=== PATIENT | male | born 1965 | race Caucasian/White ===

== ENCOUNTER 2018-03-21 09:09 | Outpatient (CLI) | payer OTHER, SELFPAY ==
[2018-03-21 10:33] LABS: COMMENT (LAB VIEW ONLY) 123.88 mg/dL; Microalb ug/mg Crea 6.9 ug/mg Cr
[2018-03-21 10:47] LABS: ALT 26 U/L (12-78); AST 13 U/L (15-37); Alkaline Phosphatase 96 U/L (46-116); Anion Gap 9.3 mmol/L (3-11); BUN 14 mg/dL (7-18); Bilirubin, Total 0.3 mg/dL (0.2-1.0); CO2 28.7 mmol/L (21.0-32.0); CREATININE 0.91 mg/dL (0.70-1.30); Calcium 9.3 mg/dL (8.5-10.1); Chloride 103 mmol/L (98-107); Cholesterol 179 mg/dL (50-200); Glucose 117 mg/dL (70-100); HDL Cholesterol 56 mg/dL (40-60); LDL CHOLESTEROL 89 mg/dL (<100); Potassium 4.2 mmol/L (3.5-5.1); Sodium 141 mmol/L (136-145); Total Protein 7.5 g/dL (6.4-8.2); Triglyceride 147 mg/dL (30-150)
[2018-03-21 11:11] LABS: Hemoglobin A1C 8.2 % (4.5-6.2)
== END 2018-03-21 09:29 ==
PROVIDERS: PCP Nurse Practitioner Family; Visit Provider Nurse Practitioner Family
DX: I10 Essential (primary) hypertension (principal); E78.5 Hyperlipidemia, unspecified; E11.65 Type 2 diabetes mellitus with hyperglycemia; Z79.4 Long term (current) use of insulin
CPT/HCPCS: 36415; 80053; 80061; 83721; 82043; 82570; 83036

== ENCOUNTER 2018-07-18 01:45 | Outpatient (CLI) | payer OTHER, SELFPAY ==
--- NOTE | 2018-07-18 08:00 | DIABASSESS_ITS ---
DESCRIPTION/ASSESSMENT: Malcolm Agrawal presents for diabetes self management on multiple insulin dosing daily. He is here specifically to learn about the continuous glucose monitor with anticipation that he will trial the Dexcom 4 Professional to see if it will work for him. INTERVENTION: Reviewed Freestyle Shilpa and Dexcom features and differences. He is shown the wearable part of the Dexcom 4. He does not feel it would be safe on his abdomen given his work. He wishes to discuss this again with his PCP and knows to be in touch if he has a change of heart. ACTION PLAN: Malcolm will discuss options with PCP and follow up as desired. Individual DSME/T __0__ units billed TIME IN: 0800 OUT: 08 No DM group education series being offered at this time.
== END 2018-07-18 02:05 ==
PROVIDERS: PCP Nurse Practitioner Family; Visit Provider Dietitian, Registered
DX: E11.9 Type 2 diabetes mellitus without complications (principal); Z79.4 Long term (current) use of insulin; Z71.3 Dietary counseling and surveillance

== ENCOUNTER 2019-07-31 00:58 | Outpatient (CLI) | payer OTHER, MEDICAID, SELFPAY ==
[2019-07-31 08:48] LABS: COMMENT (LAB VIEW ONLY) 128.08 mg/dL; Microalb ug/mg Crea 4.1 ug/mg Cr
[2019-07-31 08:49] LABS: ALT 39 U/L (16-63); AST 15 U/L (15-37); Albumin 4.2 g/dL (3.4-5.0); Alkaline Phosphatase 99 U/L (46-116); BUN 16 mg/dL (7-18); Bilirubin, Total 0.3 mg/dL (0.2-1.0); Calcium 8.8 mg/dL (8.5-10.1); Chloride 104 mmol/L (98-107); Cholesterol 226 mg/dL (<200); Glucose 215 mg/dL (74-106); HDL Cholesterol 36 mg/dL (40-60); Potassium 4.1 mmol/L (3.5-5.1); Sodium 141 mmol/L (136-145); Total Protein 7.2 g/dL (6.4-8.2); Triglyceride 485 mg/dL (<150)
[2019-07-31 09:03] LABS: LDL CHOLESTEROL 105 mg/dL (<100)
== END 2019-07-31 01:18 ==
PROVIDERS: PCP Nurse Practitioner Family; Visit Provider Nurse Practitioner Family
DX: E78.5 Hyperlipidemia, unspecified (principal); E11.9 Type 2 diabetes mellitus without complications; Z79.4 Long term (current) use of insulin
CPT/HCPCS: 36415; 80053; 80061; 83721; 82043; 82570; 83036

== ENCOUNTER 2020-10-08 02:42 | Outpatient (CLI) | payer MEDICAID, SELFPAY ==
[2020-10-08 09:15] LABS: HCT 44.1 % (40.0-50.0); MCHC 31.7 % (32.0-36.0); MCV 85.1 fL (80-95); MPV 11.1 fL (8.0-11.0); Platelet Count 240 10^3/uL (130-400); RBC 5.18 10^6/uL (4.36-5.78); RDW 14.4 % (11.8-14.1); RDW-SD 45.1 fL; WBC 8.35 10^3/uL (4.4-10.8)
[2020-10-08 10:05] LABS: Microalb ug/mg Crea 8.4 ug/mg Cr
[2020-10-08 10:06] LABS: ALT 22 U/L (16-63); AST 13 U/L (15-37); Albumin 4.3 g/dL (3.4-5.0); Alkaline Phosphatase 88 U/L (46-116); Anion Gap 9.4 mmol/L (3-11); BUN 15 mg/dL (7-18); Bilirubin, Total 0.4 mg/dL (0.2-1.0); CO2 27.6 mmol/L (21.0-32.0); CREATININE 0.9 mg/dL (0.70-1.30); Calcium 9.5 mg/dL (8.5-10.1); Calculated LDL 105 mg/dL (<100); Chloride 104 mmol/L (98-107); Cholesterol 178 mg/dL (<200); Glucose 115 mg/dL (74-106); HDL Cholesterol 57 mg/dL (40-60); Potassium 3.9 mmol/L (3.5-5.1); Sodium 141 mmol/L (136-145); Total Protein 7.8 g/dL (6.4-8.2); Triglyceride 83 mg/dL (<150)
== END 2020-10-08 02:43 | disposition home or self-care (01) ==
LOC: LBO 02:42
PROVIDERS: PCP Nurse Practitioner Family; Visit Provider Nurse Practitioner Family
DX: I10 Essential (primary) hypertension (principal); E78.5 Hyperlipidemia, unspecified; E11.9 Type 2 diabetes mellitus without complications; Z79.4 Long term (current) use of insulin; Z51.81 Encounter for therapeutic drug level monitoring
CPT/HCPCS: 36415; 80053; 80061; 85027; 82043; 82570

== ENCOUNTER 2022-02-24 03:05 | Outpatient (CLI) | payer MEDICAID, SELFPAY ==
[2022-02-24 07:42] LABS: Abs Immature Grans 0.02 10^3/uL (0.0-0.06); Absolute Basophil Count 0.04 10^3/uL (0.0-0.2); Absolute Lymphocyte Count 1.78 10^3/uL (1.2-3.4); Absolute Monocyte Count 0.91 10^3/uL (0.1-0.8); Basophils % 0.7; Eosinophils % 3.4; HCT 45.2 % (40.0-50.0); HGB 14.7 g/dL (13.5-17.5); Immature Grans % 0.3; Lymphocytes % 29.9; MCH 27.6 pg (27.0-33.0); MCHC 32.5 % (32.0-36.0); MCV 85 fL (80-95); MPV 11.1 fL (8.0-11.0); Monocytes % 15.3; Neutrophils % 50.4; Platelet Count 220 10^3/uL (130-400); RBC 5.32 10^6/uL (4.36-5.78); RDW 14.1 % (11.8-14.1); RDW-SD 43.8 fL; WBC 5.95 10^3/uL (4.4-10.8)
[2022-02-24 08:33] LABS: Hemoglobin A1C 7.4 % (<5.7)
[2022-02-24 08:34] LABS: COMMENT (LAB VIEW ONLY) 236.07 mg/dL; Microalb ug/mg Crea 9.8 ug/mg Cr
[2022-02-24 08:35] LABS: ALT 32 U/L (16-63); AST 22 U/L (15-37); Albumin 4.5 g/dL (3.4-5.0); Alkaline Phosphatase 103 U/L (46-116); Anion Gap 8.2 mmol/L (3-11); BUN 15 mg/dL (7-18); Bilirubin, Total 0.4 mg/dL (0.2-1.0); CO2 29.8 mmol/L (21.0-32.0); Calcium 9.3 mg/dL (8.5-10.1); Calculated LDL 127 mg/dL (<100); Chloride 103 mmol/L (98-107); Cholesterol 209 mg/dL (<200); Estimated GFR 89.44 (mL/min/1.73m2); Glucose 119 mg/dL (74-106); HDL Cholesterol 59 mg/dL (40-60); Potassium 3.6 mmol/L (3.5-5.1); Sodium 141 mmol/L (136-145); Total Protein 8.1 g/dL (6.4-8.2); Triglyceride 118 mg/dL (<150)
== END 2022-02-24 03:06 | disposition home or self-care (01) ==
PROVIDERS: PCP Nurse Practitioner Family; Visit Provider Nurse Practitioner Family
DX: Z51.81 Encounter for therapeutic drug level monitoring (principal); E11.65 Type 2 diabetes mellitus with hyperglycemia; I10 Essential (primary) hypertension; Z79.4 Long term (current) use of insulin; E78.5 Hyperlipidemia, unspecified; E11.9 Type 2 diabetes mellitus without complications
CPT/HCPCS: 36415; 80053; 80061; 82043; 82570; 83036; 85025

== ENCOUNTER 2022-03-17 02:03 | Outpatient (CLI) | payer MEDICAID, SELFPAY ==
--- NOTE | 2022-03-17 08:30 | DI.CTLCSR_ITS ---
Exam(s) CT CHEST LUNG CANCER SCREEN EXAM: CT CHEST LUNG CANCER SCREEN CLINICAL HISTORY: Screening for lung cancer,CURRENT SMOKER, F17.210 TECHNIQUE: Imaging Protocol: Axial computed tomography images with coronal and sagittal reformatted images were created and reviewed. Low dose screening protocol. COMPARISON: CR CHEST 2 VIEWS PA,LAT from 03/19/2012 FINDINGS: Tracheobronchial tree: No bronchiectasis or mucus plugging.. Thyroid: Marked enlargement of the righ t lobe. Mediastinum and Letty: No dominant adenopathy or fluid collection. Pulmonary parenchyma: No consolidation or dominant measurable mass. No visible emphysematous changes. No significant interstitial changes peer Lung Nodules: None. Pleura: No effusion. No pneumothorax. Heart: The heart is not dilated. Mild coronary artery calcifications are seen. Aorta: Thoracic aorta non-dilated. Upper abdomen: Unremarkable. Bones: Unremarkable for age. Soft Tissues: Mild bilateral gynecomastia IMPRESSION: No suspicious pulmonary nodules. Enlargement of the right lobe of the thyroid. Further evaluation with ultrasound could be considered . Lung RADS Cat 1 - Negative: No nodules and definitely benign nodules Lung-RADS 1.0 CATEGORIES: Category 0 - Prior chest CT exam(s) being located for comparison. Category 1 - Annual screening in 12 months. No nodules or definitely benign nodules. Category 2 - Annual screening in 12 months. Benign appearance. Nodules with low likelihood of becomin g active cancer. Category 3 - 6-month follow-up. Probably benign. Short-term follow-up suggested. Nodules with low lik elihood of becoming active cancer. Category 4A - 3-month follow-up and CT/PET if >8 mm in size. Suspicious finding. Findings which requi re additional testing. Category 4B - Findings which require additional testing and tissue sampling. Category 4X - Category 3 or 4 nodules with additional features or imaging findings that increases the suspicion of malignancy. Modifier S- Potentially clinically significant findings (non lung cancer) RADIATION DOSE DELIVERED: Total DLP DATA REPOSITORY: All CT scans at this facility are submitted to the National Radiology Data Registry (NRDR) Dose Index Registry (DIR) with the [employer] (ACR). RADIATION OPTIMIZATION: All CT scans at this facility use at least one of these dose optimization te chniques: automated exposure control; mA and/or kV adjustment per patient size (includes targeted exa ms where dose is matched to clinical indication); or iterative reconstruction.
== END 2022-03-17 02:23 ==
PROVIDERS: PCP Nurse Practitioner Family; Visit Provider Nurse Practitioner Family
DX: Z12.2 Encounter for screening for malignant neoplasm of respiratory organs (principal); F17.210 Nicotine dependence, cigarettes, uncomplicated; E07.89 Other specified disorders of thyroid
CPT/HCPCS: 71271

== ENCOUNTER 2022-04-26 01:52 | Outpatient (CLI) | payer MEDICAID, SELFPAY ==
--- NOTE | 2022-04-26 06:45 | DI.US_ITS ---
Exam(s) US THYROID EXAM: US THYROID CLINICAL HISTORY: Eval incidental R thyroid enlargement on CT,THYROID NODULE, E04.1. TECHNIQUE: Ultrasound thyroid performed using standard protocol. COMPARISON: CT CT CHEST LUNG CANCER SCREEN from 03/17/2022 FINDINGS: ISTHMUS: 8 mm RIGHT LOBE: Size: 7.1 x 2.7 x 2.6 cm Echogenicity: Normal. Vascularity: Normal. Nodules: There is a 3.7 x 3.3 x 3.7 cm solid isoechoic nodule in the inferior pole of the right lobe. It has smooth margins and punctate echogenic foci. It is consistent with a TI rads level 4 nodule. Due to its size, FNA is recommended. There is also a 1 x 0.7 x 1 cm solid hypoechoic nodule in the right lobe. There do appear to be a few punctate echogenic foci. It has smooth margins. It is con sistent with a TI rads level 5 nodule. Due to its size, FNA is recommended. LEFT LOBE: Size: 6 x 2.2 x 1.7 cm Echogenicity: Normal. Vascularity: Normal. Nodules: There is a 1.7 x 1.2 x 1.4 cm solid isoechoic nodule. It has ill-defined margins. No echog enic foci are seen. It is consistent with a TI rads level 3 nodule. Due to its size, follow-up is r ecommended. There is a 0.9 x 0.3 x 0.9 cm mixed cystic and solid nodule in the left lobe. It is con sistent with a TI rads level 2 nodule. No follow-up is recommended. OTHER FINDINGS: None. IMPRESSION: 1. Enlarged thyroid gland. 2. Multi nodule thyroid gland. Please see the above discussion for complete details. FNA is recomme nded on the 2 right thyroid nodules as described above. DATA REPOSITORY:
== END 2022-04-26 02:12 ==
LOC: DI 01:53
PROVIDERS: PCP Nurse Practitioner Family; Visit Provider Nurse Practitioner Family
DX: E04.2 Nontoxic multinodular goiter (principal); E07.89 Other specified disorders of thyroid
CPT/HCPCS: 76536

== ENCOUNTER 2022-04-29 16:14 | Outpatient (CLI) | payer MEDICAID, SELFPAY ==
[2022-04-29 17:07] LABS: TSH (W/Ref FT4) 0.12 uIU/mL (0.36-3.74)
[2022-04-29 17:30] LABS: FREE T4 0.94 ng/dL (0.76-1.46)
== END 2022-04-29 16:15 | disposition home or self-care (01) ==
LOC: LBO 16:14
PROVIDERS: PCP Nurse Practitioner Family; Visit Provider Nurse Practitioner Family
DX: E04.2 Nontoxic multinodular goiter (principal)
CPT/HCPCS: 36415; 84439; 84443

== ENCOUNTER 2022-07-27 00:56 | Outpatient (CLI) | payer MEDICAID, SELFPAY ==
--- NOTE | 2022-07-27 07:45 | DI.US_ITS ---
Exam(s) US NEEDLE LOCAL OTHER WO RAD EXAM: US NEEDLE LOCAL OTHER WO RAD CLINICAL HISTORY: Right TR 4/TR 5 lesions,ULTRASOUND GUIDED BX,E04.2. COMPARISON: US US THYROID from 04/26/2022 TECHNIQUE: Ultrasound guidance was performed for ultrasound-guided FNA of right thyroid lobe nodule. See procedure report for details. FINDINGS: IMPRESSION: Ultrasound guidance. DATA REPOSITORY:
--- NOTE | 2022-07-27 12:10 | PAPNONF_PTH ---
PATIENT: Jatinder Agrawal V LOC: [facility] U#:[id number] AGE/SX: 56/M ROOM: RE07/27/[address]: Phoenix Whittaker MD : [id number] BED: DIS: 07/27/2022 SPEC #: [id number] RECD: 07/27/22 12:47 STATUS: ALANNAH REQ #: [id number] GENE: 07/27/22 12:[address]: Phoenix Whittaker DEPT: [facility] Cytology RECD BY: Minda Patricia ENTERED: 07/27/22 12:48 SP TYPE: PAOLO ACOSTA DR: Saadia Tracy, LAYNE Tissues: 1 - BODY FLUID CYTO-FINE NEEDLE ASPIRATE[facility] 2 - BODY FLUID CYTO-FINE NEEDLE ASPIRATE[facility] Procedures: BODY FLUID CYTO-FINE NEEDLE ASPIRATE[facility] Comments: [id number] (PATH FNA CONSULT) (REFRIGERATED)
--- NOTE | 2022-07-27 13:04 | OPPNE_ITS ---
Date of service: 07/27/22 Time of Service: 13:04 Procedure Note Date of procedure: 07/27/22 Procedure: Ultrasound-guided FNA, right thyroid nodule x2 Surgeon/Proceduralist/Physician: Phoenix Whittaker Procedure Indications: Patient with 2 right-sided thyroid nodules meeting criteria for biopsy. Procedure Description: After obtaining written consent from the patient, he was positioned in a supine position and prepped and draped in appropriate fashion. The thyroid nodules in the right were identified and 1% lidocaine with 1/100,000 epinephrine injected i n the skin and subcutaneous tissues overlying each of the nodules. A 25-gauge needle was passed into the thyroid nodules repeatedly and then pathology assessed for cellular adequacy. After ensuring it cellular adequacy for each of the nodules, Afirma testing was drawn in case Afirma testing was indicated. The patient tolerated this procedure well. There was no bleeding. Sterile dressings were applied. The patient was then able to stand up and ambulate. His vital signs remained stable. He will remove the bandages tonight, call with any signs of infection, and will call if he does not hear from me with regard to pathology results within 2 weeks. He had no further questions. He is comfortable with the plan.
== END 2022-07-27 01:16 ==
LOC: DI 00:56
PROVIDERS: PCP Nurse Practitioner Family; Visit Provider Otolaryngology
DX: E04.2 Nontoxic multinodular goiter (principal)
CPT/HCPCS: 76942; 88104

== ENCOUNTER → 2022-10-14 01:14 | Outpatient (CLI) | payer MEDICAID, SELFPAY ==
--- NOTE | 2022-10-14 08:15 | DI.RAD_ITS ---
Exam(s) XR FINGER LT RING EXAM: XR FINGER LT RING EXAM DATE/TIME: CLINICAL HISTORY: persist pain/swell s/p disloco 2mo ago (pt reset). TECHNIQUE: 2D digital imaging was performed of the left finger. Views were obtained. PA/AP, obliq ue, and lateral views were obtained. COMPARISON: None. FINDINGS: BONES: No acute fracture is present. No bony destructive lesion is seen. JOINTS: No dislocation is present. SOFT TISSUE: Normal. IMPRESSION: No evidence of acute fracture or dislocation. DATA REPOSITORY: RADIATION DOSE DELIVERED:
== END ==
PROVIDERS: PCP Nurse Practitioner Family; Visit Provider Nurse Practitioner Family
DX: M25.541 Pain in joints of right hand (principal)
CPT/HCPCS: 73140

== ENCOUNTER 2023-03-03 04:43 | Outpatient (CLI) | payer MEDICAID, SELFPAY ==
[2023-03-03 08:50] LABS: Anion Gap 4.9 mmol/L (3-11); BUN 14 mg/dL (7-18); CO2 29.1 mmol/L (21.0-32.0); CREATININE 0.9 mg/dL (0.70-1.30); Calcium 9.3 mg/dL (8.5-10.1); Calculated LDL 84 mg/dL (<100); Chloride 108 mmol/L (98-107); Cholesterol 179 mg/dL (<200); Estimated GFR 100.86 (mL/min/1.73m2); Glucose 143 mg/dL (74-106); HDL Cholesterol 53 mg/dL (40-60); Potassium 3.8 mmol/L (3.5-5.1); Sodium 142 mmol/L (136-145); TSH (W/Ref FT4) 0.39 uIU/mL (0.36-3.74); Triglyceride 212 mg/dL (<150)
[2023-03-03 08:58] LABS: Lipase 56 U/L (16-77)
== END 2023-03-03 04:44 | disposition home or self-care (01) ==
LOC: LBO 04:43
PROVIDERS: PCP Nurse Practitioner Adult Health; Referring Provider Nurse Practitioner Adult Health; Visit Provider Nurse Practitioner Adult Health
DX: E04.2 Nontoxic multinodular goiter (principal); E11.9 Type 2 diabetes mellitus without complications; E78.5 Hyperlipidemia, unspecified; I10 Essential (primary) hypertension; Z13.6 Encounter for screening for cardiovascular disorders; Z79.4 Long term (current) use of insulin
CPT/HCPCS: 36415; 80048; 80061; 83690; 84443

== ENCOUNTER → 2023-07-07 04:02 | Outpatient (CLI) | payer MEDICAID, SELFPAY ==
--- NOTE | 2023-07-07 07:00 | DI.US_ITS ---
Exam(s) US THYROID EXAM: US THYROID CLINICAL HISTORY: Assess for change,MULTIPLE THYROID NODULES,E04.2. TECHNIQUE: Ultrasound thyroid performed using standard protocol. COMPARISON: US US THYROID from 04/26/2022 US US NEEDLE LOCAL OTHER WO RAD from 07/27/2022 Prior thyroid ultrasound of 04/26/2022. FINDINGS: This patient underwent FNA of 2 right thyroid lobe nodules on 07/27/2022, parent negative for maligna ncy. RIGHT THYROID LOBE: Measures 3.3 cm AP x 3.0 cm wide x 6.7 cm craniocaudal There again 2 solid nodules in the right lobe, both of which underwent prior ultrasound FNA. The larger right lobe nodule is located more inferiorly. Details as follows: Size: Measures 3.7 x 3.3 x 3.7 cm. Composition: Solid-2 points Echogenicity: Isoechoic to surrounding parenchyma-1 point Shape: Wider than taller-0 points Margin: Smooth- 0 points Echogenic Foci: Contains punctate echogenic foci-3 points Total Points for this nodule: 6 ACR Ti-Rads Category: TR4 This TR 4 level nodule qualifies for ultrasound-guided FNA as it measures greater than 1.5 cm. This biopsy apparently underwent prior FNA (benign follicular nodule). This nodule has not significantly increased in size from the prior ultrasound of April 2022. Nodule #2 this is located more inferiorly in the right lobe Size: Measures 1.0 x 0.7 x 1.0 cm. Also not increased in size. Composition: Solid-2 points Echogenicity: Hypoechoic-2 points Shape: Wider than taller- 0 points Margin: Smooth-0 points Echogenic Foci: Contains punctate echogenic foci-3 points Total points for this nodule: 7 ACR Ti-Rads Category: TR5 This TR 5 level nodule is on the cusp 4 qualifying for ultrasound-guided FNA as it measures 1 cm size . However, is apparently already undergone ultrasound-guided FNA on 07/27/2022 and was negative for malignancy. There are no new right lobe nodules. ISTHMUS: Normal thickness. There are no nodules in the isthmus. LEFT THYROID LOBE: Measures 2.6 cm AP x 2.5 wide x 5.4 cm craniocaudal Left lobe also contains 2 nodules. The larger of the 2 nodules measures 1.8 x 1.4 x 1.6 cm. Its characteristics are as follows: Composition: Solid-2 points- points Echogenicity: Isoechoic-1 points Shape: Not taller than wider-0 points Margin: Smooth-0 points Echogenic Foci: None-0 points Total points for this nodule: 3 ACR Ti-Rads Category: 3 This TR 3 level nodule does not require ultrasound FNA as it measures less than 2.5 cm. Nodule #2 2nd nodule is located superomedial to the 1st nodule. Size: Measures 0.8 x 0.3 x 0.9 cm Composition: Mixed asbrf-ovkgwu-5 point Echogenicity: Hypoechoic-2 points Shape: Wider than taller in the transverse plane-0 points Margin: Smooth-0 points Echogenic Foci: Contains a macrocalcification-1 point Total Points for this nodule: 4 ACR Ti-Rads Category: 4 This TR 4 level nodule does not require ultrasound-guided FNA as it measures less than 1.5 cm. LYMPH NODES: There benign-appearing lymph nodes in both sides the neck.. IMPRESSION: 1. The 2 nodules in the right thyroid lobe appear stable prior ultrasound of 04/26/2022 and have both undergone ultrasound-guided FNA on 07/27/2022, apparently negative for malignancy. 2. The 2 nodules in left thyroid lobe appear relatively stable and do not grade high enough to requir e ultrasound-guided FNA at this time 3. Small benign-appearing lymph nodes noted in both sides of the neck. Recommend repeat ultrasound in 1 year, earlier if clinically indicated. DATA REPOSITORY:
== END ==
PROVIDERS: PCP Nurse Practitioner Adult Health; Visit Provider Otolaryngology
DX: E04.2 Nontoxic multinodular goiter (principal)
CPT/HCPCS: 76536

== ENCOUNTER 2023-09-10 14:28 | Emergency (ER) | payer MEDICAID, SELFPAY ==
[2023-09-10 14:32] VITALS: BP 135/94; PULSE 94; RESP 18; TEMP 37.2; O2SAT 98
--- NOTE | 2023-09-10 14:45 | DI.RAD_ITS ---
Exam(s) XR ANKLE LT COMPLETE EXAM: XR ANKLE LT COMPLETE CLINICAL HISTORY: Medial left ankle pain TECHNIQUE: 2D digital imaging was performed of the left ankle. Three images were obtained. AP, lat eral and oblique views were obtained. COMPARISON: CR LEFT ANKLE COMPLETE from 08/21/2007 FINDINGS: BONES: No acute fracture is present. No bony destructive lesion is seen. JOINTS:The ankle mortise is normally aligned. SOFT TISSUE: There are well corticated osseous densities adjacent to the medial malleolus which are c hronic. Vascular calcifications are present. IMPRESSION: No acute fracture or dislocation. DATA REPOSITORY: RADIATION DOSE DELIVERED:
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
[2023-09-10] MEDS: Acetaminophen 500 MG TAB 1000 MG PO (15:01)
--- NOTE | 2023-09-10 16:23 | DI.VRAD_ITS ---
PROCEDURE INFORMATION: Exam: XR Left Ankle Exam date and time: 09/10/2023 3:53 PM Age: 58 years old Clinical indication: Other: Medial lt ankle pain TECHNIQUE: Imaging protocol: Radiologic exam of the left ankle. Views: 3 or more views. COMPARISON: No relevant prior studies available. FINDINGS: Bones/joints: There is hypertrophic spurring of the tibiotalar articulation. There may be some mild soft tissue swelling. Soft tissues: See Bones/joints finding. Other findings: There may be a small loose body at the level of the lateral malleolus. IMPRESSION: Degenerative changes. Possible medial soft tissue swelling. Dictated and Authenticated by: Roxann Clemens MD. Ordering:JESSICA Benedict MD
== END 2023-09-10 17:01 | disposition home or self-care (01) ==
PROVIDERS: Emergency Provider Emergency Medicine; PCP Nurse Practitioner Adult Health
DX: M25.572 Pain in left ankle and joints of left foot (principal); E11.9 Type 2 diabetes mellitus without complications; I10 Essential (primary) hypertension; F17.210 Nicotine dependence, cigarettes, uncomplicated; Z79.4 Long term (current) use of insulin; Z79.84 Long term (current) use of oral hypoglycemic drugs; Z79.85 Long-term (current) use of injectable non-insulin antidiabetic drugs
CPT/HCPCS: 99283; 73610

== ENCOUNTER 2024-01-02 06:51 | Day surgery (SDC) | payer MEDICAID, SELFPAY ==
[2024-01-02] VITALS (12 sets, daily range): BP systolic 119–163; BP diastolic 60–114; PULSE 72–86; RESP 13–20; TEMP 36.6–37.1; O2SAT 95–100; BMI 26.9
--- NOTE | 2024-01-02 07:06 | W.ED.GENAD ---
Discharge Plan Disposition Patient Disposition: Admit to [facility] Discharge Details Clinical Impression: Lesion of lumbar spine, Ureterolithiasis, Hydronephrosis of left kidney Attending Provider: Tao Sesay Primary Care Provider: Gloria Valdes ED Provider: Jak Pond Discharge Data Discharge Date/Time-TO BE ENTERED AT DEPARTURE: 01/02/24 09:53 HPI General Date/Time Provider Initiated Documentation: 01/02/24 07:05. HPI Narrative: MDM This is an overall well-appearing normothermic and not tachycardic 58-year-old male with left flank pain left hydronephrosis suspicious for ureterolithiasis for which patient will undergo CT abdomen pelvis without IV contrast. No pain or proportion to suggest necrotizing soft tissue infection. No pulsatile mass no history of AAA to suggest ruptured AAA. No significant testicular tenderness nor horizontal lie so my suspicion for testicular torsion is low and I do not feel the patient requires a testicular ultrasound. No diarrhea nor specific left lower quadrant pain nor fevers to suggest diverticulitis. No right lower quadrant pain nor rebound to suggest appendicitis. No rash to abdomen to suggest zoster. No shortness of breath to suggest PE. No cough to suggest pneumonia. Not a vasculopath so my suspicion for splenic arterial aneurysm is low. No bloody stools so my suspicion for mesenteric ischemia is low. No chest pain to suggest ACS so I did not obtain ECG. Will obtain urinalysis to assess for UTI and reassess following CT scan. 8:51 AM Base metabolic panel no NIKKI. Mild anion gap mild hyperglycemia. Normal bicarbonate?/not consistent with DKA. CBC with mild leukocytosis mild anemia. No thrombocytopenia. Urinalysis nitrite negative not consistent with UTI. 9:12 AM I met with the patient and explained his significant left-sided ureteral lithiasis. I spoke with Dr. Sesay and he will place patient on the OR schedule for today for stent as patient has been n.p.o. at midnight. I also explained that the patient has a vertebral vertebral body lesion which appears benign per radiology. I advised that he follow-up with his primary care provider concerning this incidental finding. He feels markedly more comfortable following ketorolac. Chronic conditions affecting the care of the patient: Diabetes History obtained from an outside historian: N/A External record review: N/A Medications: Ketorolac Social determinants of health affecting disposition: N/A Management discussed with: Dr. Sesay Treatment/interventions considered: N/A Response to therapies provided: Improved symptoms in the ED HPI This is a 58-year-old diabetic around the emergency department via private vehicle in the setting of left flank back and testicular pain. Patient reports that at approximately 9:30 PM last night he began to have testicular pain which progressed and radiated up into his left flank and left lower quadrant. He had been nauseous and vomited once yesterday. No prior history of similar symptoms. No history of nephrolithiasis. No dysuria frequency and no prior history of UTIs. No past surgical history to abdomen. No chest pain shortness of breath cough or fevers. Patient denies diarrhea and any recent falls. Patient was slightly more active over the weekend as he was hunting. Exam General: Well-appearing in no acute distress speaking in complete sentences. Head: Normocephalic, atraumatic. Eye: Extraocular eye movements intact. No conjunctival injection. No scleral icterus. Ear, nose, mouth, throat: Grossly normal inspection. Normal voice, handling secretions normally. Neck: Trachea midline. Cardiovascular: Well-perfused distal extremities. Respiratory: Nonlabored respiration. Clear lungs bilaterally. Gastrointestinal: Nondistended abdomen. Soft. Minimal left lower quadrant tenderness. No rebound. No guarding. No rash to abdomen. : Circumcised penis. No significant testicular tenderness. No horizontal lie. Intact cremasteric reflex bilaterally. Musculoskeletal: No edema. Moving all 4 extremities spontaneously. Skin: Normal for age and race, grossly normal temperature and turgor. No acute rash. Neurologic: Alert and appropriate, no apparent acute deficits. Psychiatric: Mood and manner are appropriate. Grooming and personal hygiene are appropriate. Related Data Home Medications ?Medication ?Instructions ?Recorded ?Confirmed glucosamin 375 mg-chond 300 1 ea PO BID 04/19/12 01/03/24 mg-collagen 50 mg-hyaluronic acid 2 mg cap multivitamin (Daily Vitamin tablet) 1 ea PO DAILY ##100 04/19/12 01/03/24 aspirin 81 mg chewable tablet 81 mg PO DAILY #100 tabs 11/19/16 01/03/24 omega-3 fatty acids-fish oil 340 1 ea PO DAILY 02/18/17 01/03/24 mg-1,000 mg capsule (Fish Oil) blood sugar diagnostic (Blood #400 ea 09/10/19 01/02/24 Glucose Test strips) pen needle, diabetic 31 gauge x ##400 09/07/21 01/02/24 516 (Pen Needle) fenofibrate nanocrystallized 145 See Rx Instructions .Route 02/10/23 01/03/24 mg tablet .COMPLEX #90 tabs lisinopril 10 mg tablet 10 mg PO DAILY #90 tab-caps 02/10/23 01/03/24 insulin glargine 100 unit/mL (3 34 unit (0.34 mL) subcut HS Dx: 06/23/23 01/03/24 mL) subcutaneous pen (Lantus E11.9 to maintain HbA1c less than Solostar U-100 Insulin) 7%. #31 mL flash glucose sensor (FreeStyle #2 kits 08/22/23 01/02/24 Shilpa 14 Day Sensor kit) omeprazole 20 mg capsule,delayed 20 mg PO DAILY #90 caps 08/29/23 01/03/24 release semaglutide 1 mg/dose (4 mg/3 mL) 1 mg (0.75 mL) subcut QWEEK #9 mL 08/29/23 01/03/24 subcutaneous pen injector (Ozempic) sildenafil 100 mg tablet See Rx Instructions .Route 09/28/23 01/03/24 .COMPLEX #20 tabs metformin 1,000 mg tablet See Rx Instructions .Route 11/09/23 01/03/24 .COMPLEX #180 tabs atorvastatin 80 mg tablet See Rx Instructions .Route 12/07/23 01/03/24 .COMPLEX #90 tabs tramadol 50 mg tablet 50 mg PO Q6H PRN #20 tabs 01/02/24 01/03/24 Previous Rx's ?Medication ?Instructions ?Recorded aspirin 81 mg chewable tablet 81 mg PO DAILY #100 tabs 11/19/16 blood sugar diagnostic (Blood #400 ea 09/10/19 Glucose Test strips) pen needle, diabetic 31 gauge x ##400 09/07/2116 (Pen Needle) fenofibrate nanocrystallized 145 See Rx Instructions .Route 02/10/23 mg tablet .COMPLEX #90 tabs lisinopril 10 mg tablet 10 mg PO DAILY #90 tab-caps 02/10/23 insulin glargine 100 unit/mL (3 34 unit (0.34 mL) subcut HS Dx: 05/09/24 mL) subcutaneous pen (Lantus E11.9 to maintain HbA1c less than Solostar U-100 Insulin) 7%. #31 mL flash glucose sensor (FreeStyle #2 kits 08/22/23 Shilpa 14 Day Sensor kit) omeprazole 20 mg capsule,delayed 20 mg PO DAILY #90 caps 08/29/23 release semaglutide 1 mg/dose (4 mg/3 mL) 1 mg (0.75 mL) subcut QWEEK #9 mL 08/29/23 subcutaneous pen injector (Ozempic) sildenafil 100 mg tablet See Rx Instructions .Route 09/28/23 .COMPLEX #20 tabs metformin 1,000 mg tablet See Rx Instructions .Route 11/09/23 .COMPLEX #180 tabs atorvastatin 80 mg tablet See Rx Instructions .Route 12/07/23 .COMPLEX #90 tabs tramadol 50 mg tablet 50 mg PO Q6H PRN #20 tabs 01/02/24 Allergies Allergy/AdvReac Type Severity Reaction Status Date / Time No Known Allergies Allergy Verified 01/02/24 07:02 General Stated Complaint: Male Reproductive Problem MRAIETTA: 2 Course Vital Signs Vital signs: Vital Signs Temperature 36.6 C 01/02/24 06:58 Pulse 85 01/02/24 06:58 Respiratory Rate 18 01/02/24 06:58 Blood Pressure 157/114 H 01/02/24 06:58 Pulse Oximetry 100 01/02/24 06:58 Temperature 36.6 C 01/02/24 06:58 Temperature Source Temporal Artery Scan 01/02/24 06:58 Pulse 85 01/02/24 06:58 Respiratory Rate 18 01/02/24 06:58 Respiratory Effort Normal, Non-Labored 01/02/24 07:03 Blood Pressure 157/114 H 01/02/24 06:58 Blood Pressure Position Sitting 01/02/24 06:58 Pulse Oximetry 100 01/02/24 06:58 Oxygen Delivery Method Room Air 01/02/24 06:58 Oxygen Flow Rate 0 01/02/24 06:58 Pain Level 6 01/02/24 06:58 Medical Decision Making Quality:SDOH Health Related Social Needs: No Data to Display PFSH All Active Problems (Updated 01/02/24 @ 08:55 by Jak Pond MD) Hydronephrosis of left kidney (Acute) Ureterolithiasis (Acute) Lesion of lumbar spine (Acute) Non-pressure chronic ulcer of left ankle with fat layer exposed (Acute) Diabetic foot ulcer (Acute) Family history of colon cancer in mother (Chronic) Multiple thyroid nodules (Acute) ENT Erectile dysfunction (Acute) History of colon polyps (Acute) Type 2 diabetes mellitus, with long-term current use of insulin (Chronic ~1998) HbA1c goal </= 7-7.5%; dx'ed 24yo Sleep apnea (Chronic 09/01/12) intolerant CPAP; has lost weight since dx Other and unspecified hyperlipidemia (Chronic 04/19/12) Baseline 04/2005: TG 1175 ; PCEq risk 19% LDL baseline 161; high intensity statin & fibrate therapy Gastroesophageal reflux disease (Chronic 04/19/12) Essential hypertension (Chronic 02/21/13) Chronic rhinitis (Chronic 09/01/12) 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 (Chronic) Medical History Central perforation of tympanic membrane, right ear Positive self-administered antigen test for COVID-19 (~12/2021) Diverticulosis Fracture of pelvis (03/30/13) Benign neoplasm of colon, unspecified (02/24/11) tubular adenoma Surgical History H/O colonoscopy 08/21/20 with polypectomy Repair, Tendon or Muscle L ankle Family History (Updated 08/29/23 @ 08:58 by Gloria Valdes NP) Mother Colon cancer Father Essential hypertension Hyperlipidemia Brother Hyperlipidemia Multiple sclerosis Social History Smoking/Tobacco Use Status: Current-Occasional Tobacco Type: cigarettes Smoking packs per day: 1 Smoking cigarettes per day: 20.0 Second Hand Exposure: Yes Smoking risk assessment performed?: Yes Alcohol Intake: current Alcohol Intake frequency: a few times a month Drug use: Daily Substance use type: marijuana 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[employer]) Pets and animals: Yes Pets and animals: dog(s) Sexually active: Yes Current gender identity: male What is your relationship status?: Panel score (0-1 are the most socially isolated patients): 1 What type of physical activity do you participate in: none and other Details: Stays active with work, hunting, fishing, etc Duration: < 15 minutes/day Frequency: does not exercise Seatbelt use: never Drive intox or ride w/intox miniature train driver: No Water heater temp set <120 deg: Yes Working smoke detector in home: Yes Fire extinguisher in home: Yes Carbon monox detector in home: Yes Do you feel safe at home: Yes Do you feel safe in your relationship?: Yes PAWSS Have you Been Recently Intoxicated or Drunk Within the Last 30 days?: No Have you Ever Experienced Previous Episodes of Alcohol Withdrawal?: No Have you ever Experienced Withdrawal Seizures?: No Have you ever Experienced Delirium Tremens(DT)s?: No Have you ever undergone Alcohol Rehabilitation Treatment (i.e, inpt ot outpatient treatment programs)?: No Have you ever Experienced Blackouts?: No Have you ever Combined Alcohol with other Downers within the last 90 days?: No Have you ever Combined Alcohol with any other Substance of Abuse during the last 90 days?: No Positive Blood Alcohol level on Presentation? [PCS.BAL]: No Evidence of Increased Autonomic Activity (i.e. HR>120, tremor, sweating, agitation, nausea)?: No Result: 0 POCUS Exam (ED) Limited Retroperitoneal(Renal)Exam DATE OF EXAM: 01/02/24 TIME OF EXAM: 07:26 PROVIDER THAT PERFORMED THE STUDY: Jak Pond IS THIS A REPEAT EXAM DURING THIS ENCOUNTER: No REASON FOR EXAM: Flank pain/left side VISUALIZED STRUCTURES: Left kidney, Right kidney and Other (Bladder) structures: Left-sided hydronephrosis. Bilateral kidneys and bladder visualized. PERTINENT FINDINGS/IMPRESSION: Hydronephrosis present left side DIFFERENTIAL DIAGNOSES: Mild left-sided hydronephrosis. No obvious UVJ stone. Exam complete
--- NOTE | 2024-01-02 07:15 | DI.CT_ITS ---
Exam(s) CT ABDOMEN PELVIS WO EXAM: CT ABDOMEN PELVIS WO CLINICAL HISTORY: Left flank pain hydronephrosis. TECHNIQUE: Imaging Protocol: Axial computed tomography images with coronal and sagittal reformatted images were created and reviewed CONTRAST MATERIAL: Intravenous: none Oral: None COMPARISON: No exams were available for comparison FINDINGS: VISUALIZED LUNG BASES: No nodules nor pleural effusions evident. ABDOMEN: There is no ascites. LIVER: There are no obvious focal hepatic lesions evident of this noninfused study. GALLBLADDER/BILIARY: No obvious gallbladder pathology. CBD is not dilated. PANCREAS: No evidence of pancreatic mass nor dilatation of the pancreatic duct. SPLEEN: Spleen is not enlarged. No obvious intrasplenic lesions. ADRENALS: There are no significant adrenal masses. KIDNEYS:There is an obstructing calculus in the upper left ureter at the the left ureteropelvic junct ion. This measures approximately 10 x 6 mm. Another smaller 3 2-3 mm calculus is seen in the lower pole calyx of the ipsilateral left kidney. There is mild hydronephrosis and perinephric streaking ar ound this left kidney. There are no calculi in the opposite-right kidney. Left ureter below this le pilar is not dilated. There are no radiopaque calculi in the nondistended urinary bladder. Nor the ur eterovesical junctions. No solid renal masses evident. No cysts.. ABDOMINAL AORTA: Abdominal aorta is not enlarged. LYMPH NODES: There is no retroperitoneal nor paraaortic adenopathy. ABDOMINAL WALL: No evidence of significant anterior abdominal wall nor inguinal hernia. GI: There is no evidence of bowel obstruction, free air, nor abscess. PELVIS: LYMPH NODES: There is no intrapelvic nor significant inguinal adenopathy. GI: No evidence of appendicitis.No evidence of sigmoid diverticulitis. URINARY BLADDER: No calculi nor obvious masses evident REPRODUCTIVE: Prostate gland is enlarged. Measures 6 cm wide. OSSEOUS: No fractures. There is a lucent nonexpansile bone lesion in the posterior aspect of L3 vert ebral body which measures 1.7 x 1.5 cm and there is discontinuity of the inferior endplate of L3 at t his level. Nevertheless, has benign appearance. IMPRESSION: 1. The main acute finding is an obstructing 10 x 6 mm left renal calculus at the left ureteropelvic j unction, as described above. Additional smaller 3 mm calculus is seen in the lower pole calyx of the same-left kidney. Right kidney unremarkable. No calculi in the bladder. Enlarged prostate noted. Urinary bladder is not distended. 2. There is a 17 x 15 by 20 mm nonexpansile bone lesion in the posterior inferior aspect of L3 verteb ral body. No other bone lesions identified. Probable benign appearance. First read by [facility]. RADIATION DOSE DELIVERED: 581.98mGy.cm Total DLP DATA REPOSITORY: All CT scans at this facility are submitted to the National Radiology Data Registry (NRDR) Dose Index Registry (DIR) with the [employer] (ACR). RADIATION OPTIMIZATION: All CT scans at this facility use at least one of these dose optimization te chniques: automated exposure control; mA and/or kV adjustment per patient size (includes targeted exa ms where dose is matched to clinical indication); or iterative reconstruction.
[2024-01-02 07:30] LABS: Abs Immature Grans 0.04 10^3/uL (0.0-0.06); Absolute Basophil Count 0.03 10^3/uL (0.0-0.2); Absolute Lymphocyte Count 0.92 10^3/uL (1.2-3.4); Absolute Monocyte Count 0.97 10^3/uL (0.1-0.8); Basophils % 0.3 %; Eosinophils % 0.3 %; HCT 39.4 % (40.0-50.0); HGB 13.2 g/dL (13.5-17.5); Immature Grans % 0.3 %; Lymphocytes % 7.9 %; MCHC 33.5 % (32.0-36.0); MCV 84 fL (80-95); MPV 10.7 fL (8.0-11.0); Monocytes % 8.3 %; Neutrophils % 82.9 %; Platelet Count 232 10^3/uL (130-400); RBC 4.71 10^6/uL (4.36-5.78); RDW 13.8 % (11.8-14.1); RDW-SD 42.3 fL; WBC 11.64 10^3/uL (4.4-10.8)
[2024-01-02] MEDS: Ketorolac 15 MG/ML VIAL IVP (07:31)
[2024-01-02 07:32] LABS: Absolute Eosinophil Count 0.03 10^3/uL (0.0-0.7); Absolute Neutrophil Count 9.65 10^3/uL (1.2-6.7)
[2024-01-02 07:40] LABS: Anion Gap 11.6 mmol/L (3-11); BUN 18 mg/dL (7-18); CO2 23.4 mmol/L (21.0-32.0); CREATININE 1.2 mg/dL (0.70-1.30); Calcium 9.3 mg/dL (8.5-10.1); Chloride 107 mmol/L (98-107); Estimated GFR 70.98 (mL/min/1.73m2); Glucose 159 mg/dL (74-106); Potassium 3.6 mmol/L (3.5-5.1); Sodium 142 mmol/L (136-145)
--- NOTE | 2024-01-02 08:00 | DI.VRAD_ITS ---
PROCEDURE INFORMATION: Exam: CT Abdomen And Pelvis Without Contrast Exam date and time: 01/02/2024 7:30 AM Age: 58 years old Clinical indication: Abdominal pain; Patient HX: Left flank pain hydronephrosis TECHNIQUE: Imaging protocol: Computed tomography of the abdomen and pelvis without contrast. COMPARISON: CT CHEST LUNG CANCER SCREEN 03/17/2022 3:21 PM FINDINGS: Lungs: Nonspecific small focus of reticular scarring/atelectasis in the posterior right lower lobe (series 2, image 27). Heart: Base of heart is unremarkable as visualized. Liver: Normal. No mass. Gallbladder and biliary ducts: Normal. No calcified stones. No ductal dilation. Pancreas: Normal. No ductal dilation. Spleen: Normal. No splenomegaly. Adrenal glands: Normal. No mass. Kidneys and ureters: Asymmetric [id number]-right perirenal stranding. Left lower renal calyx nonobstructive calcified stone. There is a large calcified urinary stone measuring up to 1.1 mm in cross-sectional diameter located at the left ureteropelvic junction. Associated moderate left hydronephrosis. Edematous hypertrophy of the left kidney. Stomach and bowel: Kazi-qi-mwxhhowm colonic stool burden. Appendix: No evidence of appendicitis. Intraperitoneal space: Unremarkable. No free air. No significant fluid collection. Vasculature: Calcified pelvic phleboliths. [id number] calcified atherosclerotic disease of the visualized aorta. Lymph nodes: Unremarkable. No enlarged lymph nodes. Urinary bladder: Unremarkable as visualized. Reproductive: Prostatomegaly. Bones/joints: Diffuse degenerative change of the visualized osseous structures. Soft tissues: Unremarkable. IMPRESSION: 1. Obstructing renal stone at the left ureteropelvic junction as detailed above. 2. Additional nonobstructive left renal stone in the lower pole calyx. Dictated and Authenticated by: Tad Avila MD. Ordering:JESSICA Benedict MD
[2024-01-02 08:41] LABS: Bilirubin Negative (Negative); Blood Negative (Negative); Clarity Clear (Clear); Glucose 100 mg/dL (Negative); Ketones Trace mg/dL (Negative); Leukocyte Esterase Negative (Negative); Nitrite Negative (Negative); pH 8.5 (5-8)
--- NOTE | 2024-01-02 09:21 | W.PM.HP.N ---
Date of service: 01/02/24 Time of Service: 09:21 Assessment and Plan Assessment and plan (1) Ureterolithiasis: Status: Acute (2) Hydronephrosis of left kidney: Status: Acute Assessment and plan: We will place a ureteral stent urgently and then discharge him to home. We would then bring him back to the operating room for planned ureteroscopy and holmium laser lithotripsy of his large stone. History of Present Illness History of Present Illness Chief Complaint: Left UPJ stone Narrative: This is a 58-year-old gentleman who presented to the emergency department early this morning with an acute onset of left-sided flank pain. The pain was associated with nausea and vomiting but not with fevers or chills. As part of his evaluation, a CT scan was done and he was found to have a large obstructing stone at the left ureteropelvic junction. His pain has improved with medications, but given the size of the stone, we are concerned about recurrent pain and another trip to the emergency department. He is agreeable to placement of a left ureteral stent with ultimate plans for ureteroscopy and holmium laser lithotripsy at a later date. Review of Systems Narrative: No fevers or chills Rhinitis. No vision change or dysphasia Diabetes. No thyroid dysfunction Sleep apnea. No shortness of breath, cough or hemoptysis No chest pain or palpitations GERD. 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 (Acute) Diabetic foot ulcer (Acute) Family history of colon cancer in mother (Chronic) Multiple thyroid nodules (Acute) ENT Erectile dysfunction (Acute) History of colon polyps (Acute) Type 2 diabetes mellitus, with long-term current use of insulin (Chronic ~1998) HbA1c goal </= 7-7.5%; dx'ed 24yo Sleep apnea (Chronic 09/01/12) intolerant CPAP; has lost weight since dx Other and unspecified hyperlipidemia (Chronic 04/19/12) Baseline 04/2005: TG 1175 ; PCEq risk 19% LDL baseline 161; high intensity statin & fibrate therapy Gastroesophageal reflux disease (Chronic 04/19/12) Essential hypertension (Chronic 02/21/13) Chronic rhinitis (Chronic 09/01/12) 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 (Chronic) Medical History Central perforation of tympanic membrane, right ear Positive self-administered antigen test for COVID-19 (~12/2021) Diverticulosis Fracture of pelvis (03/30/13) Benign neoplasm of colon, unspecified (02/24/11) tubular adenoma Surgical History H/O colonoscopy 08/21/20 with polypectomy Repair, Tendon or Muscle L ankle Family History (Updated 08/29/23 @ 08:58 by Gloria Valdes NP) Mother Colon cancer Father Essential hypertension Hyperlipidemia Brother Hyperlipidemia Multiple sclerosis Social History Smoking/Tobacco Use Status: Current-Occasional Tobacco Type: cigarettes Smoking packs per day: 1 Smoking cigarettes per day: 20.0 Second Hand Exposure: Yes Smoking risk assessment performed?: Yes Alcohol Intake: current Alcohol Intake frequency: 0-2 drinks per day Drug use: Daily Substance use type: marijuana Adopted: No Caregiver/Support person: No Foster care: No Household members: spouse Number of Children: 3 Communication Needs: None 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[employer]) Pets and animals: Yes Pets and animals: dog(s) Sexually active: Yes Current gender identity: male What is your relationship status?: Panel score (0-1 are the most socially isolated patients): 1 What type of physical activity do you participate in: none and other Details: Stays active with work, hunting, fishing, etc Duration: < 15 minutes/day Frequency: does not exercise Seatbelt use: never Drive intox or ride w/intox route relief driver: No Water heater temp set <120 deg: Yes Working smoke detector in home: Yes Fire extinguisher in home: Yes Carbon monox detector in home: Yes Do you feel safe in your relationship?: Yes Meds Allergies and Home Medications Allergies Allergy/AdvReac Type Severity Reaction Status Date / Time No Known Allergies Allergy Verified 01/02/24 07:02 Home Medications ?Medication ?Instructions ?Recorded ?Confirmed ?Type glucosamin 375 mg-chond 300 1 ea PO BID 04/19/12 01/02/24 History mg-collagen 50 mg-hyaluronic acid 2 mg cap multivitamin (Daily Vitamin tablet) 1 ea PO DAILY ##100 04/19/12 01/02/24 History aspirin 81 mg chewable tablet 81 mg PO DAILY #100 tabs 11/19/16 01/02/24 Rx omega-3 fatty acids-fish oil 340 1 ea PO DAILY 02/18/17 01/02/24 History mg-1,000 mg capsule (Fish Oil) blood sugar diagnostic (Blood #400 ea 09/10/19 01/02/24 Rx Glucose Test strips) pen needle, diabetic 31 gauge x ##400 09/07/21 01/02/24 Rx 16 (Pen Needle) fenofibrate nanocrystallized 145 See Rx Instructions .Route 02/10/23 01/02/24 Rx mg tablet .COMPLEX #90 tabs lisinopril 10 mg tablet 10 mg PO DAILY #90 tab-caps 02/10/23 01/02/24 Rx insulin glargine 100 unit/mL (3 34 unit (0.34 mL) subcut HS Dx: 06/23/23 01/02/24 Rx mL) subcutaneous pen (Lantus E11.9 to maintain HbA1c less than Solostar U-100 Insulin) 7%. #31 mL flash glucose sensor (FreeStyle #2 kits 08/22/23 01/02/24 Rx Shilpa 14 Day Sensor kit) omeprazole 20 mg capsule,delayed 20 mg PO DAILY #90 caps 08/29/23 01/02/24 Rx release semaglutide 1 mg/dose (4 mg/3 mL) 1 mg (0.75 mL) subcut QWEEK #9 mL 08/29/23 01/02/24 Rx subcutaneous pen injector (Ozempic) sildenafil 100 mg tablet See Rx Instructions .Route 09/28/23 01/02/24 Rx .COMPLEX #20 tabs metformin 1,000 mg tablet See Rx Instructions .Route 11/09/23 01/02/24 Rx .COMPLEX #180 tabs atorvastatin 80 mg tablet See Rx Instructions .Route 12/07/23 01/02/24 Rx .COMPLEX #90 tabs Exam Const General: cooperative Neck Neck: supple Resp Effort & Inspection: normal respiratory effort Auscultation: clear to auscultation bilaterally GI Inspection: normal to inspection Palpation: soft Neuro General: patient alert, patient awake and patient oriented x3 Results Labs 01/02/24 07:24 01/02/24 07:24 Labs: Laboratory Results - last 24 hr 01/02/24 01/02/24 07:24 08:16 WBC 11.64 H RBC 4.71 Hgb 13.2 L Hct 39.4 L MCV 84 MCH 28.0 MCHC 33.5 RDW 13.8 Plt Count 232 MPV 10.7 Immature Gran % 0.3 Neutrophils % 82.9 Lymphocytes % 7.9 Monocytes % 8.3 Eosinophils % 0.3 Basophils % 0.3 Nucleated RBC % 0.0 Absolute Neutrophils 9.65 H Absolute Lymphocytes 0.92 L Absolute Monocytes 0.97 H Absolute Eosinophils 0.03 Absolute Basophils 0.03 Sodium 142 Potassium 3.6 Chloride 107 Carbon Dioxide 23.4 Anion Gap 11.6 H BUN 18 Creatinine 1.2 Est GFR (CKD-EPI 2020) 70.98 Glucose 159 H Calcium 9.3 Urine Color Yellow Urine Clarity Clear Urine pH 8.5 H Ur Specific Jewell 1.020 Urine Protein Negative Urine Ketones Trace H Urine Blood Negative Urine Nitrite Negative Urine Bilirubin Negative Urine Urobilinogen 1.0 H Ur Leukocyte Esterase Negative Urine Glucose 100 H Last Vital Signs Temp 36.6 C 01/02/24 06:58 Pulse 86 01/02/24 09:10 Resp 17 01/02/24 09:10 BP 142/81 H 01/02/24 09:10 Pulse Ox 98 01/02/24 09:10 PAWSS Have you Been Recently Intoxicated or Drunk Within the Last 30 days?: No Have you Ever Experienced Previous Episodes of Alcohol Withdrawal?: No Have you ever Experienced Withdrawal Seizures?: No Have you ever Experienced Delirium Tremens(DT)s?: No Have you ever undergone Alcohol Rehabilitation Treatment (i.e, inpt ot outpatient treatment programs)?: No Have you ever Experienced Blackouts?: No Have you ever Combined Alcohol with other Downers within the last 90 days?: No Have you ever Combined Alcohol with any other Substance of Abuse during the last 90 days?: No Positive Blood Alcohol level on Presentation? [PCS.BAL]: No Evidence of Increased Autonomic Activity (i.e. HR>120, tremor, sweating, agitation, nausea)?: No Result: 0 Time Spent Time spent with Patient: <40 minutes Time was spent: other
--- NOTE | 2024-01-02 09:27 | ANES.PREOP_ITS ---
General Info Date of Service Date Performed: 01/02/24 Height: 6 ft 2 in Weight: 95.254 kg Body Mass Index (BMI): 26.9 Surgical Procedure: Operation Date: 01/02/24 10:10 Proposed Procedure Side Surgeon p Cystoscopy/Retrograde/ Stent Placement Left Tao Sesay MD Meds Allergies and Home Medications Allergies Allergy/AdvReac Type Severity Reaction Status Date / Time No Known Allergies Allergy Verified 01/02/24 07:02 Home Medication ?Medication ?Instructions ?Recorded glucosamin 375 mg-chond 300 1 ea PO BID 04/19/12 mg-collagen 50 mg-hyaluronic acid 2 mg cap multivitamin (Daily Vitamin tablet) 1 ea PO DAILY ##100 04/19/12 aspirin 81 mg chewable tablet 81 mg PO DAILY #100 tabs 11/19/16 omega-3 fatty acids-fish oil 340 1 ea PO DAILY 02/18/17 mg-1,000 mg capsule (Fish Oil) blood sugar diagnostic (Blood #400 ea 09/10/19 Glucose Test strips) pen needle, diabetic 31 gauge x ##400 09/07/2106/29 (Pen Needle) fenofibrate nanocrystallized 145 See Rx Instructions .Route 02/10/23 mg tablet .COMPLEX #90 tabs lisinopril 10 mg tablet 10 mg PO DAILY #90 tab-caps 02/10/23 insulin glargine 100 unit/mL (3 34 unit (0.34 mL) subcut HS Dx: 06/23/23 mL) subcutaneous pen (Lantus E11.9 to maintain HbA1c less than Solostar U-100 Insulin) 7%. #31 mL flash glucose sensor (FreeStyle #2 kits 08/22/23 Shilpa 14 Day Sensor kit) omeprazole 20 mg capsule,delayed 20 mg PO DAILY #90 caps 08/29/23 release semaglutide 1 mg/dose (4 mg/3 mL) 1 mg (0.75 mL) subcut QWEEK #9 mL 08/29/23 subcutaneous pen injector (Ozempic) sildenafil 100 mg tablet See Rx Instructions .Route 09/28/23 .COMPLEX #20 tabs metformin 1,000 mg tablet See Rx Instructions .Route 11/09/23 .COMPLEX #180 tabs atorvastatin 80 mg tablet See Rx Instructions .Route 12/07/23 .COMPLEX #90 tabs PFSH Active Problems Active Problems: Problem Status Onset Code Hydronephrosis of left kidney Acute N13.30 Ureterolithiasis Acute N20.1 Lesion of lumbar spine Acute M89.9 Non-pressure chronic ulcer of left ankle with fat layer exposed Acute L97.322 Diabetic foot ulcer Acute E11.621, L97.509 Family history of colon cancer in mother Chronic Z80.0 Multiple thyroid nodules Acute E04.2 Erectile dysfunction Acute N52.9 History of colon polyps Acute Z86.010 Type 2 diabetes mellitus, with long-term current use of insulin Chronic ~1998 E11.9, Z79.4 Sleep apnea Chronic 09/01/12 G47.30 Other and unspecified hyperlipidemia Chronic 04/19/12 E78.5 Gastroesophageal reflux disease Chronic 04/19/12 K21.9 Essential hypertension Chronic 02/21/13 I10 Chronic rhinitis Chronic 09/01/12 J31.0 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 Chronic K22.70 Medical History Medical History Central perforation of tympanic membrane, right ear Positive self-administered antigen test for COVID-19 (~12/2021) Diverticulosis Fracture of pelvis (03/30/13) Benign neoplasm of colon, unspecified (02/24/11) tubular adenoma Surgical History Surgical History H/O colonoscopy 08/21/20 with polypectomy Repair, Tendon or Muscle L ankle Tobacco Smoking/Tobacco Use Status: Current-Occasional Tobacco Type: cigarettes Smoking packs per day: 1 Smoking cigarettes per day: 20.0 Passive smoking exposure: Yes Second hand exposure: Yes Alcohol Alcohol Intake: current Alcohol intake frequency: 0-2 drinks per day Substance Use Substance use: Daily Substance use type: marijuana Vital Signs and Lab Results Vital Signs Most Recent Vital Signs in EMR: Most Recent Vital Signs Temp Pulse Resp BP Pulse Ox 36.6 C 86 17 142/81 H 98 01/02/24 06:58 01/02/24 09:10 01/02/24 09:10 01/02/24 09:10 01/02/24 09:10 Lab Results 01/02/24 07:24 01/02/24 07:24 Blood Type / Crossmatch: 2 No Data to Display Complete Blood Count: 2 White Blood Count 11.64 10^3/uL (4.4-10.8) H 01/02/24 07:24 Red Blood Count 4.71 10^6/uL (4.36-5.78) 01/02/24 07:24 Hemoglobin 13.2 g/dL (13.5-17.5) L 01/02/24 07:24 Hematocrit 39.4 % (40.0-50.0) L 01/02/24 07:24 Platelet Count 232 10^3/uL (130-400) 01/02/24 07:24 Complete Metabolic Panel: 2 Sodium 142 mmol/L (136-145) 01/02/24 07:24 Potassium 3.6 mmol/L (3.5-5.1) 01/02/24 07:24 Chloride 107 mmol/L (98-107) 01/02/24 07:24 Carbon Dioxide 23.4 mmol/L (21.0-32.0) 01/02/24 07:24 BUN 18 mg/dL (7-18) 01/02/24 07:24 Creatinine 1.2 mg/dL (0.70-1.30) 01/02/24 07:24 Est GFR (CKD-EPI 2020) 70.98 (mL/min/1.73m2) 01/02/24 07:24 Calcium 9.3 mg/dL (8.5-10.1) 01/02/24 07:24 Glucose 159 mg/dL (74-106) H 01/02/24 07:24 Liver Function Panel: 2 No Data to Display Coagulation Panel: 2 No Data to Display Cardiac Panel: 2 No Data to Display Arterial Blood Gas: 2 No Data to Display Venous Blood Gas: 2 No Data to Display Pancreas Panel: 2 No Data to Display Thyroid Panel: 2 No Data to Display Infectious Disease: 2 No Data to Display Blood Cultures: 2 No Data to Display Toxicology Panel: 2 No Data to Display Anesthesia Assessment and Plan Anesthesia History Personal History: No History of Anesthesia Complications Family History: No Family History of Anesthesia Complications Exercise Tolerance Exercise Tolerance: Metabolic Equivalents>4 Pertinent Negatives Pertinent Negatives: No Symptoms of GERD, No Major Cardiovascular Symptoms or Complaints, No Major Pulmonary Symptoms or Complaints and No History of CVA/TIA Cardiac & Pulmonary Exam Cardiac Exam: Normal S1/S2 Heart Sounds Pulmonary Exam: Clear Bilateral Breath Sounds Implantable Cardiac Device Does patient have a Pacemaker or an ICD?: No Airway Exam Known Difficult Airway: No Mallampati Class: 3 Mouth Opening: Normal (> 3cm) Thyromental Distance: Greater than 3 cm Neck Range of Motion: Full ROM Neck Circumference: Normal Teeth Condition: Normal Dentition ASA Classification ASA Score: ASA 3 Emergency Case?: No NPO Status NPO Status: NPO Clears >2 hours, Solids >8 hours Anesthesia Plan Resuscitation Status: Full Code Anesthesia Technique: General Anesthesia Airway Planned: Endotracheal Tube Monitors Used: Standard Monitors
[2024-01-02] MEDS: ceFAZolin 2 GM/50 ML BAG IVPB (10:26)
[2024-01-02] MEDS: Lidocaine 2% Jelly 6 ML SYR (10:35)
[2024-01-02] MEDS: Omnipaque 300 MG/ML 50 ML BTL (10:40)
--- NOTE | 2024-01-02 10:57 | DI.RAD_ITS ---
Exam(s) XR RETROGRADE IN OR EXAM: XR RETROGRADE IN OR CLINICAL HISTORY: Hydronephrosis of left kidney. TECHNIQUE: 2D digital imaging was performed. COMPARISON: No exams were available for comparison FINDINGS: Fluoroscopy provided during retrograde left-side urologic procedure. See procedure report for details. Total fluoroscopy time 14 seconds IMPRESSION: Radiation exposure index/cumulative dose: jayleen Mcconnell= 3.7469mGy DATA REPOSITORY: RADIATION DOSE DELIVERED:
--- NOTE | 2024-01-02 11:08 | W.PM.DSUDISC ---
Date of service: 01/02/24 Time of Service: 11:08 Discharge Plan Disposition Patient Disposition: Home Condition: Stable Discharge Details Reason For Visit: left UPJ stone Attending Provider: Tao Sesay Primary Care Provider: Gloria Valdes Home Meds and New Rx's Prescriptions: New tramadol 50 mg tablet 50 mg PO Q6H PRNQty: 20 0RF No Action Ozempic 1 mg/dose (4 mg/3 mL) pen injector 1 mg subcut QWEEK Qty: 9 3RF omeprazole 20 mg capsule,delayed release(DR/EC) 20 mg PO DAILY Qty: 90 3RF Rx Instructions: Take on an empty stomach at least 30 minutes before first meal. multivitamin [Daily Vitamin] 1 EACH tablet 1 ea PO DAILY Qty: 100 vmmeejfh-pqxi-tkytdf-hyalur ac 1 EACH capsule 1 ea PO BID aspirin 81 MG tablet,chewable 81 mg PO DAILY Qty: 100 3RF Fish Oil 1 EACH capsule 1 ea PO DAILY (DME) Blood Glucose Test Strip See Rx Instructions .ROUTE .MEDSUPPLY Qty: 400 3RF Rx Instructions: As directed to check blood glucose four times daily. On insulin. Dispense covered brand. (DME) pen needle, diabetic [Pen Needle] 31 gauge x 5/16 needle 1 ea Miscellaneous QID Qty: 400 3RF Rx Instructions: 31G 5/16 Dx: E11.9 To maintain HbA1C less than 7% fenofibrate nanocrystallized 145 mg tablet See Rx Instructions .ROUTE .COMPLEX Qty: 90 3RF Dose Instruction: TAKE ONE TABLET BY MOUTH EVERY DAY Rx Instructions: TAKE ONE TABLET BY MOUTH EVERY DAY lisinopril 10 mg tablet 10 mg PO DAILY Qty: 90 3RF insulin glargine [Lantus Solostar U-100 Insulin] 100 unit/mL (3 mL) insulin pen 34 unit subcut HS Qty: 31 3RF (DME) FreeStyle Shilpa 14 Day Sensor Kit See Rx Instructions .ROUTE .COMPLEX Qty: 2 6RF Dose Instruction: USE DIRECTED TO KEEP HBA1C LESS THAN 7% Rx Instructions: USE DIRECTED TO KEEP HBA1C LESS THAN 7% sildenafil 100 mg tablet See Rx Instructions .ROUTE .COMPLEX Qty: 20 11RF Dose Instruction: TAKE ONE TABLET BY MOUTH 30 MIN TO 4 HOURS BEFORE ACTIVITY Rx Instructions: TAKE ONE TABLET BY MOUTH 30 MIN TO 4 HOURS BEFORE ACTIVITY metformin 1,000 mg tablet See Rx Instructions .ROUTE .COMPLEX Qty: 180 3RF Dose Instruction: TAKE ONE TABLET BY MOUTH TWICE A DAY FOR DIABETES Rx Instructions: TAKE ONE TABLET BY MOUTH TWICE A DAY FOR DIABETES atorvastatin 80 mg tablet See Rx Instructions .ROUTE .COMPLEX Qty: 90 3RF Dose Instruction: TAKE ONE TABLET BY MOUTH EVERY DAY Rx Instructions: TAKE ONE TABLET BY MOUTH EVERY DAY Discharge Instructions Additional Instructions: As we discussed you have an abnormality in your lumbar spine at the radiology team noted called a bone lesion. The radiology team reports that this appears benign and does not advise any follow-up. As we discussed please discuss this finding with your primary care provider. My office will contact you to arrange a repeat surgery for ureteroscopy and holmium laser lithotripsy of your large stone While your stent is in place, you may notice blood in your urine. You may urinate more frequently than usual. There is no need to strain your urine Activity:: Activity as Tolerated Shower/Bathe:: 24 hours Diet:: As Tolerated Discharge Orders Discharge Orders: Discharge Order (Routine); Ordered 01/02/24 Ordered By: Tao Sesay DS: Diagnosis Discharge Diagnosis (1) Ureterolithiasis: Status: Acute (2) Hydronephrosis of left kidney: Status: Acute
--- NOTE | 2024-01-02 11:16 | W.PM.OP ---
Operative Note Operative Note PRE-OP DIAGNOSIS: Left UPJ stone POST-OP DIAGNOSIS: same PROCEDURE: cystoscopy, left retrograde pyelegram, insert left ureteral stent SURGEON: Tao Sesay ANESTHESIA TYPE: Local By Surgeon and General LMA/ETT Refer to Anesthesia Record ESTIMATED BLOOD LOSS: 5 PATHOLOGY: none sent COMPLICATIONS: None Patient was transported to: PACU Patient's condition: stable Implants: 6 malagasy by 22 to 30 cm left ureteral stent Indications: This is a 58-year-old gentleman who presented to the emergency department this morning with an acute onset of left-sided flank and testicular pain. He was identified as having a 10 mm obstructing left UPJ stone. He presents for stent placement to relieve his significant hydronephrosis. Findings: large left UPJ stone hydronephrotic drip once stent placed Procedure Description: The patient was transferred from the emergency department to the operating room. He was given a dose of IV antibiotics. After successful induction of general anesthesia, he was placed in the dorsal lithotomy position. His genitalia was prepped and draped. 2% Xylocaine jelly was instilled into the urethra to act as a local anesthetic. A 22 [place] African rigid cystoscope was passed through the urethra into the bladder. The urethra and bladder were inspected using a 30 degree lens. The pendulous, bulbar and membranous urethra appeared normal with no strictures. The prostatic urethra showed lateral lobe enlargement but no significant median lobe. The bladder neck was entered and the bladder mucosa was inspected. Both ureteral orifices appeared normal with no blood coming from either side. I was not able to cannulate the left ureteral orifice with a 5 South African access catheter, so I passed a guidewire through the lumen of the catheter and was able to successfully advance the wire into the distal ureter. I then slid the ureteral access catheter over the wire into the distal ureter. We then did a retrograde pyelogram by injecting Omnipaque through the access catheter under fluoroscopic guidance. The large filling defect at the UPJ was identified. I then advanced the wire up the access catheter until the proximal end of the wire could be seen within the renal pelvis. I removed the access catheter and passed a 6 [place] African variable length stent over the wire. We position the stent such that the proximal end was curled in the renal pelvis. The distal end was visible just within the left ureteral orifice. Initially, I attempted to reposition the stent such that the distal curl was within the bladder, but was unable to do so. The stent will be repositioned when he comes back for his planned staged procedure. The bladder was emptied and the cystoscope was removed. The patient tolerated this procedure well with no complications. He was taken to the recovery room in stable condition. Date of Procedure: 01/02/24
--- NOTE | 2024-01-02 11:28 | W.ANESPOSTOP ---
Postoperative Evaluation Date, Time and Location Date Performed: 01/02/24 Time Performed: 11:34 Patient Location: Day Surgery Unit Vital Signs Most Recent Imported Vital Signs: Most Recent Vital Signs Temp Pulse Resp BP Pulse Ox 36.8 C 86 17 142/81 H 98 01/02/24 11:09 01/02/24 09:10 01/02/24 09:10 01/02/24 09:10 01/02/24 09:10 Pain Score Most Recent Pain Score: Most Recent Pain Score Pain Level 0 01/02/24 11:23 Assessment Mental Status: Awake (Alert & Oriented to Patient Baseline) Airway and Respiratory Function: Patent airway with normal (patient baseline) respiratory exam Cardiovascular Function: Hemodynamically Stable Hydration Status: Adequately Hydrated Nausea & Vomiting: No Nausea or Vomiting Pain: Pt. Denies Any Pain Peripheral Nerve Block: Patient did not receive a nerve block
== END 2024-01-02 12:40 | disposition home or self-care (01) ==
LOC: ER 09:17 → SUR 09:53
PROVIDERS: Emergency Provider Emergency Medicine; PCP Nurse Practitioner Adult Health; Visit Provider Urology
PROC: (CPT 74450; principal; 2024-01-02 10:00)
DX: N13.2 Hydronephrosis with renal and ureteral calculous obstruction (principal); E11.621 Type 2 diabetes mellitus with foot ulcer; L97.322 Non-pressure chronic ulcer of left ankle with fat layer exposed; E78.5 Hyperlipidemia, unspecified; G47.30 Sleep apnea, unspecified; K21.9 Gastro-esophageal reflux disease without esophagitis; Z79.4 Long term (current) use of insulin
CPT/HCPCS: 52332; 76775; 80048; 74176; 74420; 81003; 85025; J0131; J0690; J1100; J1885; J2003; J2405; J2704; Q9967

== ENCOUNTER 2024-01-05 07:27 | Day surgery (SDC) | payer MEDICAID, SELFPAY ==
[2024-01-05] VITALS (16 sets, daily range): BP systolic 131–154; BP diastolic 82–99; PULSE 53–78; RESP 10–18; TEMP 36.1–36.6; O2SAT 95–100; BMI 26.6
[2024-01-05] MEDS: Normal Saline Flush 10 ML SYR IV (08:04)
--- NOTE | 2024-01-05 08:15 | DI.RAD_ITS ---
Exam(s) RF RETROGRADE PYELOGRAM EXAM: RF RETROGRADE PYELOGRAM CLINICAL HISTORY: Left kidney stone. TECHNIQUE: Fluoroscopy was provided for the referring physician for guidance with performing retrogr kaela procedure. COMPARISON: CT CT ABDOMEN PELVIS WO from 01/02/2024 XA XR RETROGRADE IN OR from 01/02/2024 FINDINGS: Hard copy images show placement of a left ureteral stent. Please see procedure note for details. Fluoro time: 33.6 seconds RADIATION DOSE DELIVERED: jayleen Mcconnell=7.7 mGy
--- NOTE | 2024-01-05 08:27 | W.ANESPRE ---
General Info Date of Service Date Performed: 01/05/24 Height: 6 ft 2.5 in Weight: 95.5 kg Body Mass Index (BMI): 26.6 Surgical Procedure: Operation Date: 01/05/24 09:10 Proposed Procedure Side Surgeon p Cystoscopy/Laser/Retrograde/Ureteroscopy/ Removal of Stent Left Tao Sesay MD Meds Allergies and Home Medications Allergies Allergy/AdvReac Type Severity Reaction Status Date / Time No Known Allergies Allergy Verified 01/05/24 07:41 Home Medication ?Medication ?Instructions ?Recorded glucosamin 375 mg-chond 300 1 ea PO BID 04/19/12 mg-collagen 50 mg-hyaluronic acid 2 mg cap multivitamin (Daily Vitamin tablet) 1 ea PO DAILY ##100 04/19/12 aspirin 81 mg chewable tablet 81 mg PO DAILY #100 tabs 11/19/16 omega-3 fatty acids-fish oil 340 1 ea PO DAILY 02/18/17 mg-1,000 mg capsule (Fish Oil) blood sugar diagnostic (Blood #400 ea 09/10/19 Glucose Test strips) pen needle, diabetic 31 gauge x ##400 09/07/2106/29 (Pen Needle) fenofibrate nanocrystallized 145 See Rx Instructions .Route 02/10/23 mg tablet .COMPLEX #90 tabs lisinopril 10 mg tablet 10 mg PO DAILY #90 tab-caps 02/10/23 insulin glargine 100 unit/mL (3 34 unit (0.34 mL) subcut HS Dx: 06/23/23 mL) subcutaneous pen (Lantus E11.9 to maintain HbA1c less than Solostar U-100 Insulin) 7%. #31 mL flash glucose sensor (FreeStyle #2 kits 08/22/23 Shilpa 14 Day Sensor kit) omeprazole 20 mg capsule,delayed 20 mg PO DAILY #90 caps 08/29/23 release semaglutide 1 mg/dose (4 mg/3 mL) 1 mg (0.75 mL) subcut QWEEK #9 mL 08/29/23 subcutaneous pen injector (Ozempic) sildenafil 100 mg tablet See Rx Instructions .Route 09/28/23 .COMPLEX #20 tabs metformin 1,000 mg tablet See Rx Instructions .Route 11/09/23 .COMPLEX #180 tabs atorvastatin 80 mg tablet See Rx Instructions .Route 12/07/23 .COMPLEX #90 tabs tramadol 50 mg tablet 50 mg PO Q6H PRN #20 tabs 01/02/24 Current Visit Medications: Current Medications Generic Name Dose Route Start Last Admin Trade Name Edel PRN Reason Stop Dose Admin Cefazolin Sodium/Dextrose 2 gm in 50 mls @ 100 mls/hr 01/05/24 06:00 Ancef Duplex IVPB 01/05/24 23:59 PREOP LISSA IV Miscellaneous Supplies 1 each 01/05/24 06:00 Iv Access IV 01/05/24 23:59 DIRECTED LISSA Sodium Chloride 0 ml 01/05/24 06:00 01/05/24 08:04 Normal Saline Flush 10 Ml Syr IV 01/05/24 23:59 10 ml PRN PRN Administration Sodium Chloride 0 ml 01/05/24 06:00 Normal Saline 10 Ml Vial IJ 01/05/24 23:59 DIRECTED PRN Sterile Water 0 ml 01/05/24 06:00 Water,Injection,Sterile 10 Ml Vial IJ 01/05/24 23:59 DIRECTED PRN PFSH Active Problems Active Problems: Problem Status Onset Code Hydronephrosis of left kidney Acute N13.30 Ureterolithiasis Acute N20.1 Lesion of lumbar spine Acute M89.9 Non-pressure chronic ulcer of left ankle with fat layer exposed Acute L97.322 Diabetic foot ulcer Acute E11.621, L97.509 Family history of colon cancer in mother Chronic Z80.0 Multiple thyroid nodules Acute E04.2 Erectile dysfunction Acute N52.9 History of colon polyps Acute Z86.010 Type 2 diabetes mellitus, with long-term current use of insulin Chronic ~1998 E11.9, Z79.4 Sleep apnea Chronic 09/01/12 G47.30 Other and unspecified hyperlipidemia Chronic 04/19/12 E78.5 Gastroesophageal reflux disease Chronic 04/19/12 K21.9 Essential hypertension Chronic 02/21/13 I10 Chronic rhinitis Chronic 09/01/12 J31.0 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 Chronic K22.70 Medical History Medical History Central perforation of tympanic membrane, right ear Positive self-administered antigen test for COVID-19 (~12/2021) Diverticulosis Fracture of pelvis (03/30/13) Benign neoplasm of colon, unspecified (02/24/11) tubular adenoma Surgical History Surgical History H/O colonoscopy 08/21/20 with polypectomy Repair, Tendon or Muscle L ankle Tobacco Smoking/Tobacco Use Status: Current-Occasional Tobacco Type: cigarettes Smoking packs per day: 1 Smoking cigarettes per day: 20.0 Passive smoking exposure: Yes Second hand exposure: Yes Alcohol Alcohol Intake: current Alcohol intake frequency: a few times a month Substance Use Substance use: Daily Substance use type: marijuana Details: Smoked around 0700 today Vital Signs and Lab Results Vital Signs Most Recent Vital Signs in EMR: Most Recent Vital Signs Temp Pulse Resp BP Pulse Ox 36.6 C 78 18 131/93 H 97 01/05/24 07:43 01/05/24 07:43 01/05/24 07:43 01/05/24 07:43 01/05/24 07:43 Lab Results Blood Type / Crossmatch: No Data to Display Complete Blood Count: White Blood Count 11.64 10^3/uL (4.4-10.8) H 01/02/24 07:24 Red Blood Count 4.71 10^6/uL (4.36-5.78) 01/02/24 07:24 Hemoglobin 13.2 g/dL (13.5-17.5) L 01/02/24 07:24 Hematocrit 39.4 % (40.0-50.0) L 01/02/24 07:24 Platelet Count 232 10^3/uL (130-400) 01/02/24 07:24 Complete Metabolic Panel: Sodium 142 mmol/L (136-145) 01/02/24 07:24 Potassium 3.6 mmol/L (3.5-5.1) 01/02/24 07:24 Chloride 107 mmol/L (98-107) 01/02/24 07:24 Carbon Dioxide 23.4 mmol/L (21.0-32.0) 01/02/24 07:24 BUN 18 mg/dL (7-18) 01/02/24 07:24 Creatinine 1.2 mg/dL (0.70-1.30) 01/02/24 07:24 Est GFR (CKD-EPI 2020) 70.98 (mL/min/1.73m2) 01/02/24 07:24 Calcium 9.3 mg/dL (8.5-10.1) 01/02/24 07:24 Glucose 159 mg/dL (74-106) H 01/02/24 07:24 Liver Function Panel: No Data to Display Coagulation Panel: No Data to Display Cardiac Panel: No Data to Display Arterial Blood Gas: No Data to Display Venous Blood Gas: No Data to Display Pancreas Panel: No Data to Display Thyroid Panel: No Data to Display Infectious Disease: No Data to Display Blood Cultures: No Data to Display Toxicology Panel: No Data to Display Anesthesia Assessment and Plan Anesthesia History Personal History: No History of Anesthesia Complications Family History: No Family History of Anesthesia Complications Exercise Tolerance Exercise Tolerance: Metabolic Equivalents>4 Pertinent Negatives Pertinent Negatives: No Symptoms of GERD Cardiac & Pulmonary Exam Cardiac Exam: Normal S1/S2 Heart Sounds Pulmonary Exam: Clear Bilateral Breath Sounds Implantable Cardiac Device Does patient have a Pacemaker or an ICD?: No Airway Exam Known Difficult Airway: No Mallampati Class: 3 Mouth Opening: Normal (> 3cm) Thyromental Distance: Greater than 3 cm Neck Range of Motion: Full ROM Neck Circumference: Normal Teeth Condition: Normal Dentition ASA Classification ASA Score: ASA 2 Emergency Case?: No NPO Status NPO Status: NPO Clears >2 hours, Solids >8 hours Anesthesia Plan Resuscitation Status: Full Code Anesthesia Technique: General Anesthesia Airway Planned: Endotracheal Tube Monitors Used: Standard Monitors
--- NOTE | 2024-01-05 08:50 | W.PM.HP.N ---
Date of service: 01/05/24 Time of Service: 08:50 Assessment and Plan Assessment and plan (1) Ureterolithiasis: Status: Acute Assessment and plan: We will plan to do ureteroscopy and holmium laser lithotripsy of his large stone. History of Present Illness History of Present Illness Chief Complaint: Left UPJ stone Narrative: This is a 58-year-old gentleman who presented to the emergency department earlier this week with renal colic. He was identified as having a 10 mm left UPJ stone with obstruction. We placed a left ureteral stent and he returns now for ureteroscopy and holmium laser lithotripsy of his stone. This is his first stone episode. He has no history of gout or hyperparathyroidism. Review of Systems Narrative: No fevers or chills No vision change or dysphasia Diabetes. Thyroid nodules Sleep apnea. No shortness of breath, cough or hemoptysis No chest pain or palpitations GERD. No nausea, vomiting, hepatitis, ulcers, jaundice No seizures, strokes or peripheral neuropathy No bleeding disorders or anemia No gout PFSH All Active Problems Hydronephrosis of left kidney (Acute) Ureterolithiasis (Acute) Lesion of lumbar spine (Acute) Non-pressure chronic ulcer of left ankle with fat layer exposed (Acute) Diabetic foot ulcer (Acute) Family history of colon cancer in mother (Chronic) Multiple thyroid nodules (Acute) ENT Erectile dysfunction (Acute) History of colon polyps (Acute) Type 2 diabetes mellitus, with long-term current use of insulin (Chronic ~1998) HbA1c goal </= 7-7.5%; dx'ed 24yo Sleep apnea (Chronic 09/01/12) intolerant CPAP; has lost weight since dx Other and unspecified hyperlipidemia (Chronic 04/19/12) Baseline 04/2005: TG 1175 ; PCEq risk 19% LDL baseline 161; high intensity statin & fibrate therapy Gastroesophageal reflux disease (Chronic 04/19/12) Essential hypertension (Chronic 02/21/13) Chronic rhinitis (Chronic 09/01/12) 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 (Chronic) Medical History Central perforation of tympanic membrane, right ear Positive self-administered antigen test for COVID-19 (~12/2021) Diverticulosis Fracture of pelvis (03/30/13) Benign neoplasm of colon, unspecified (02/24/11) tubular adenoma Surgical History H/O colonoscopy 08/21/20 with polypectomy Repair, Tendon or Muscle L ankle Family History (Updated 08/29/23 @ 08:58 by Gloria Valdes NP) Mother Colon cancer Father Essential hypertension Hyperlipidemia Brother Hyperlipidemia Multiple sclerosis Social History Smoking/Tobacco Use Status: Current-Occasional Tobacco Type: cigarettes Smoking packs per day: 1 Smoking cigarettes per day: 20.0 Second Hand Exposure: Yes Smoking risk assessment performed?: Yes Alcohol Intake: current Alcohol Intake frequency: a few times a month Drug use: Daily Substance use type: marijuana Details: Smoked around 0700 today 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[employer]) Pets and animals: Yes Pets and animals: dog(s) Sexually active: Yes Current gender identity: male What is your relationship status?: Panel score (0-1 are the most socially isolated patients): 1 What type of physical activity do you participate in: none and other Details: Stays active with work, hunting, fishing, etc Duration: < 15 minutes/day Frequency: does not exercise Seatbelt use: never Drive intox or ride w/intox 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 Water heater temp set <120 deg: Yes Working smoke detector in home: Yes Fire extinguisher in home: Yes Carbon monox detector in home: Yes Do you feel safe at home: Yes Do you feel safe in your relationship?: Yes Meds Allergies and Home Medications Allergies Allergy/AdvReac Type Severity Reaction Status Date / Time No Known Allergies Allergy Verified 01/05/24 07:41 Home Medications ?Medication ?Instructions ?Recorded ?Confirmed ?Type glucosamin 375 mg-chond 300 1 ea PO BID 04/19/12 01/05/24 History mg-collagen 50 mg-hyaluronic acid 2 mg cap multivitamin (Daily Vitamin tablet) 1 ea PO DAILY ##100 04/19/12 01/05/24 History aspirin 81 mg chewable tablet 81 mg PO DAILY #100 tabs 11/19/16 01/05/24 Rx omega-3 fatty acids-fish oil 340 1 ea PO DAILY 02/18/17 01/05/24 History mg-1,000 mg capsule (Fish Oil) blood sugar diagnostic (Blood #400 ea 09/10/19 01/02/24 Rx Glucose Test strips) pen needle, diabetic 31 gauge x ##400 09/07/21 01/02/24 Rx 5/16 (Pen Needle) fenofibrate nanocrystallized 145 See Rx Instructions .Route 02/10/23 01/05/24 Rx mg tablet .COMPLEX #90 tabs lisinopril 10 mg tablet 10 mg PO DAILY #90 tab-caps 02/10/23 01/05/24 Rx insulin glargine 100 unit/mL (3 34 unit (0.34 mL) subcut HS Dx: 06/23/23 01/05/24 Rx mL) subcutaneous pen (Lantus E11.9 to maintain HbA1c less than Solostar U-100 Insulin) 7%. #31 mL flash glucose sensor (FreeStyle #2 kits 08/22/23 01/02/24 Rx Shilpa 14 Day Sensor kit) omeprazole 20 mg capsule,delayed 20 mg PO DAILY #90 caps 08/29/23 01/05/24 Rx release semaglutide 1 mg/dose (4 mg/3 mL) 1 mg (0.75 mL) subcut QWEEK #9 mL 08/29/23 01/03/24 Rx subcutaneous pen injector (Ozempic) sildenafil 100 mg tablet See Rx Instructions .Route 09/28/23 01/03/24 Rx .COMPLEX #20 tabs metformin 1,000 mg tablet See Rx Instructions .Route 11/09/23 01/05/24 Rx .COMPLEX #180 tabs atorvastatin 80 mg tablet See Rx Instructions .Route 12/07/23 01/05/24 Rx .COMPLEX #90 tabs tramadol 50 mg tablet 50 mg PO Q6H PRN #20 tabs 01/02/24 01/05/24 Rx Exam Const General: cooperative Neck Neck: normal visual inspection and supple Resp Effort & Inspection: normal respiratory effort Auscultation: clear to auscultation bilaterally Cardio Rate: regular rate Rhythm: regular rhythm GI Palpation: soft and no masses Neuro General: patient alert, patient awake and patient oriented x3 Results Last Vital Signs Temp 36.6 C 01/05/24 07:43 Pulse 78 01/05/24 07:43 Resp 18 01/05/24 07:43 BP 131/93 H 01/05/24 07:43 Pulse Ox 97 01/05/24 07:43 Time Spent Time spent with Patient: <40 minutes Time was spent: other
[2024-01-05] MEDS: ceFAZolin 2 GM/50 ML BAG IVPB (09:21)
[2024-01-05] MEDS: Lidocaine 2% Jelly 6 ML SYR (09:32)
[2024-01-05] MEDS: Omnipaque 300 MG/ML 50 ML BTL (10:00)
--- NOTE | 2024-01-05 10:45 | W.PM.DSUDISC ---
Date of service: 01/05/24 Time of Service: 10:45 Discharge Plan Disposition Patient Disposition: Home Discharge Details Reason For Visit: ureteroscopy and stone treatment Attending Provider: Tao Sesay Primary Care Provider: Gloria Valdes Home Meds and New Rx's Prescriptions: No Action Ozempic 1 mg/dose (4 mg/3 mL) pen injector 1 mg subcut QWEEK Qty: 9 3RF omeprazole 20 mg capsule,delayed release(DR/EC) 20 mg PO DAILY Qty: 90 3RF Rx Instructions: Take on an empty stomach at least 30 minutes before first meal. multivitamin [Daily Vitamin] 1 EACH tablet 1 ea PO DAILY Qty: 100 zpfwckwu-vejz-hvebde-hyalur ac 1 EACH capsule 1 ea PO BID aspirin 81 MG tablet,chewable 81 mg PO DAILY Qty: 100 3RF Fish Oil 1 EACH capsule 1 ea PO DAILY (DME) Blood Glucose Test Strip See Rx Instructions .ROUTE .MEDSUPPLY Qty: 400 3RF Rx Instructions: As directed to check blood glucose four times daily. On insulin. Dispense covered brand. (DME) pen needle, diabetic [Pen Needle] 31 gauge x 5/16 needle 1 ea Miscellaneous QID Qty: 400 3RF Rx Instructions: 31G 5/16 Dx: E11.9 To maintain HbA1C less than 7% fenofibrate nanocrystallized 145 mg tablet See Rx Instructions .ROUTE .COMPLEX Qty: 90 3RF Dose Instruction: TAKE ONE TABLET BY MOUTH EVERY DAY Rx Instructions: TAKE ONE TABLET BY MOUTH EVERY DAY lisinopril 10 mg tablet 10 mg PO DAILY Qty: 90 3RF insulin glargine [Lantus Solostar U-100 Insulin] 100 unit/mL (3 mL) insulin pen 34 unit subcut HS Qty: 31 3RF (DME) FreeStyle Shilpa 14 Day Sensor Kit See Rx Instructions .ROUTE .COMPLEX Qty: 2 6RF Dose Instruction: USE DIRECTED TO KEEP HBA1C LESS THAN 7% Rx Instructions: USE DIRECTED TO KEEP HBA1C LESS THAN 7% sildenafil 100 mg tablet See Rx Instructions .ROUTE .COMPLEX Qty: 20 11RF Dose Instruction: TAKE ONE TABLET BY MOUTH 30 MIN TO 4 HOURS BEFORE ACTIVITY Rx Instructions: TAKE ONE TABLET BY MOUTH 30 MIN TO 4 HOURS BEFORE ACTIVITY metformin 1,000 mg tablet See Rx Instructions .ROUTE .COMPLEX Qty: 180 3RF Dose Instruction: TAKE ONE TABLET BY MOUTH TWICE A DAY FOR DIABETES Rx Instructions: TAKE ONE TABLET BY MOUTH TWICE A DAY FOR DIABETES atorvastatin 80 mg tablet See Rx Instructions .ROUTE .COMPLEX Qty: 90 3RF Dose Instruction: TAKE ONE TABLET BY MOUTH EVERY DAY Rx Instructions: TAKE ONE TABLET BY MOUTH EVERY DAY tramadol 50 mg tablet 50 mg PO Q6H PRNQty: 20 0RF Discharge Instructions Additional Instructions: There is no need to strain the urine I replaced your stent, but this time, I left a string on the end of the stent. That way, we can remove the stent in the office without a return trip to the operating room. We should remove the stent in about 1 week. You will need a follow-up appointment in about 6 to 8 weeks and we will plan to get a renal ultrasound at that time. Activity:: Activity as Tolerated Shower/Bathe:: 24 hours Diet:: As Tolerated Discharge Orders Discharge Orders: Discharge Order (Routine); Ordered 01/05/24 Ordered By: Tao Sesay DS: Diagnosis Discharge Diagnosis (1) Ureterolithiasis: Status: Acute
--- NOTE | 2024-01-05 10:51 | ROE_ITS ---
Operative Note Operative Note PRE-OP DIAGNOSIS: Left kidney stone PROCEDURE: Cystoscopy, incision of left ureteral orifice, remove left ureteral stent, left retrograde pyelogram, left flexible ureteroscopy with holmium laser lithotripsy of stone, extraction of large stone fragment, insert left ureteral stent SURGEON: Tao Sesay ANESTHESIA TYPE: Local By Surgeon and General LMA/ETT Refer to Anesthesia Record ESTIMATED BLOOD LOSS: 5 PATHOLOGY: other (Stone for chemical analysis) COMPLICATIONS: None Patient was transported to: PACU Patient's condition: stable Implants: 6 Nigerian by 22 to 30 cm left ureteral stent with safety string left in place Indications: This is a 58-year-old gentleman who presented to our emergency department earlier this week with a left renal colic. He was found to have a 10 mm left UPJ stone. We treated him with placement of a left ureteral stent. He returns now for ureteroscopy and holmium laser lithotripsy of his stone. Findings: Large left kidney stone Procedure Description: The patient was brought to the operating room on 01/05/2024. He was given a dose of IV antibiotics. After successful induction of general anesthesia, he was placed in the dorsal lithotomy position. His genitalia was prepped and draped. 2% Xylocaine jelly was instilled into the urethra to act as a local anesthetic. A 22 Nigerian rigid cystoscope was passed through the urethra into the bladder. The urethra and bladder were inspected with a 30 degree lens. The pendulous, bulbar and membranous urethra appeared normal. The prostatic urethra showed some lateral lobe enlargement but no significant median lobe. The bladder neck was entered and the bladder was inspected with the 30 degree lens. The left ureteral orifice appeared edematous. I could just see the stent within the left ureteral orifice but I was not able to grasp the stent with alligator forceps. I then removed the cystoscope and passed a 24 Nigerian resectoscope sheath through the urethra into the bladder. I incised the anterior wall of the ureteral orifice in order to expose the stent. The stent was then grasped with an alligator forceps and brought out to the level of the urethral meatus. A guidewire was then passed through the lumen of the stent and the stent was removed leaving the wire in place. A dual-lumen catheter was advanced over the wire and a retrograde pyelogram was obtained by injecting Omnipaque through the access catheter under fluoroscopic guidance. The large stone was seen in the dependent portion of the renal pelvis. A second wire was then positioned and we chose one of the wires as a working wire and the other as a safety wire. We removed the dual-lumen catheter and passed a ureteral access sheath up over the working wire leaving a safety wire in place. Flexible ureteroscopy was performed and the stone was identified. This stone was treated with a 272 ?m holmium laser fiber the stone fragmented quite well. The largest fragment was grasped and a 0 tip stone basket and removed in its entirety. Reinspection of the kidney showed multiple clots but no large stone burden. I passed a 6 Nigerian variable length stent back over the safety wire. We position the stent with the proximal end curled in the renal pelvis and the distal end curled within the bladder. We left a safety string in place and brought the string through the urethral meatus. Cystoscopy was again performed to ensure the correct positioning of the stent within the bladder. Multiple clots were evacuated from the bladder itself. We anchored the safety string to the dorsum of the penis. The patient tolerated the procedure well with no complications. He was taken to the recovery room in stable condition. Date of Procedure: 01/05/24
[2024-01-05] MEDS: Phenazopyridine 200 MG TAB PO (12:16)
--- NOTE | 2024-01-05 13:00 | W.ANESPOSTOP ---
Postoperative Evaluation Date, Time and Location Date Performed: 01/05/24 Time Performed: 11:45 Patient Location: Day Surgery Unit Vital Signs Most Recent Imported Vital Signs: Most Recent Vital Signs Temp Pulse Resp BP Pulse Ox 36.1 C L 68 18 132/82 96 01/05/24 12:02 01/05/24 12:02 01/05/24 12:02 01/05/24 12:02 01/05/24 12:02 Pain Score Most Recent Pain Score: Most Recent Pain Score Pain Level 3 01/05/24 12:02 Assessment Mental Status: Awake (Alert & Oriented to Patient Baseline) Airway and Respiratory Function: Patent airway with normal (patient baseline) respiratory exam Cardiovascular Function: Hemodynamically Stable Hydration Status: Adequately Hydrated Nausea & Vomiting: No Nausea or Vomiting Pain: Pain is tolerable per patient Peripheral Nerve Block: Patient did not receive a nerve block
[2024-01-17 02:04] LABS: Source: Left Kidney
== END 2024-01-05 12:40 | disposition home or self-care (01) ==
PROVIDERS: PCP Nurse Practitioner Adult Health; Visit Provider Urology
PROC: (CPT 52356; principal; 2024-01-05 09:00)
DX: N20.2 Calculus of kidney with calculus of ureter (principal)
CPT/HCPCS: 52356; 74420; 76000; 82365; J0131; J0690; J1100; J1885; J2405; J2704; J3475; Q9967

== ENCOUNTER 2024-02-15 02:36 | Emergency (ER) | payer MEDICAID, SELFPAY ==
[2024-02-15 02:39] VITALS: BP 185/101; PULSE 94; RESP 22; TEMP 36.8
--- NOTE | 2024-02-15 02:42 | W.ED.GENAD ---
Discharge Plan Discharge Details Chief Complaint: Urinary Clinical Impression: Ureterolithiasis Primary Care Provider: Gloria Valdes ED Provider: King Castillo Leslie Meds and New Rx's Prescriptions: No Action Ozempic 1 mg/dose (4 mg/3 mL) pen injector 1 mg subcut QWEEK Qty: 9 3RF omeprazole 20 mg capsule,delayed release(DR/EC) 20 mg PO DAILY Qty: 90 3RF Rx Instructions: Take on an empty stomach at least 30 minutes before first meal. multivitamin [Daily Vitamin] 1 EACH tablet 1 ea PO DAILY Qty: 100 putjdpqz-aowl-mujbyv-hyalur ac 1 EACH capsule 1 ea PO BID aspirin 81 MG tablet,chewable 81 mg PO DAILY Qty: 100 3RF Fish Oil 1 EACH capsule 1 ea PO DAILY (DME) Blood Glucose Test Strip See Rx Instructions .ROUTE .MEDSUPPLY Qty: 400 3RF Rx Instructions: As directed to check blood glucose four times daily. On insulin. Dispense covered brand. (DME) pen needle, diabetic [Pen Needle] 31 gauge x 5/16 needle 1 ea Miscellaneous QID Qty: 400 3RF Rx Instructions: 31G 5/16 Dx: E11.9 To maintain HbA1C less than 7% insulin glargine [Lantus Solostar U-100 Insulin] 100 unit/mL (3 mL) insulin pen 34 unit subcut HS Qty: 31 3RF (DME) FreeStyle Shilpa 14 Day Sensor Kit See Rx Instructions .ROUTE .COMPLEX Qty: 2 6RF Dose Instruction: USE DIRECTED TO KEEP HBA1C LESS THAN 7% Rx Instructions: USE DIRECTED TO KEEP HBA1C LESS THAN 7% sildenafil 100 mg tablet See Rx Instructions .ROUTE .COMPLEX Qty: 20 11RF Dose Instruction: TAKE ONE TABLET BY MOUTH 30 MIN TO 4 HOURS BEFORE ACTIVITY Rx Instructions: TAKE ONE TABLET BY MOUTH 30 MIN TO 4 HOURS BEFORE ACTIVITY metformin 1,000 mg tablet See Rx Instructions .ROUTE .COMPLEX Qty: 180 3RF Dose Instruction: TAKE ONE TABLET BY MOUTH TWICE A DAY FOR DIABETES Rx Instructions: TAKE ONE TABLET BY MOUTH TWICE A DAY FOR DIABETES atorvastatin 80 mg tablet See Rx Instructions .ROUTE .COMPLEX Qty: 90 3RF Dose Instruction: TAKE ONE TABLET BY MOUTH EVERY DAY Rx Instructions: TAKE ONE TABLET BY MOUTH EVERY DAY lisinopril 10 mg tablet 10 mg PO DAILY Qty: 90 3RF fenofibrate nanocrystallized 145 mg tablet See Rx Instructions .ROUTE .COMPLEX Qty: 90 3RF Dose Instruction: TAKE ONE TABLET BY MOUTH EVERY DAY Rx Instructions: TAKE ONE TABLET BY MOUTH EVERY DAY HPI General Mode of arrival: ambulatory. Date/Time Provider Initiated Documentation: 02/15/24 02:41. Limitations to Documentation: no limitations. Information obtained by: patient, RN notes reviewed and old records reviewed. HPI Narrative: Patient presents to ED with left-sided back and abdominal pain similar to previous kidney stone. Patient noticed a little bit of pain during the day. Progressively worse throughout the evening and woke him up tonight. Denies any fever, vomiting, hematuria. Had lithotripsy and stent in December with removal in early January and follow-up with urology scheduled next week. Had been doing fine until tonight. Denies any type of chest pain, shortness of breath, cough. Related Data Home Medications ?Medication ?Instructions ?Recorded ?Confirmed glucosamin 375 mg-chond 300 1 ea PO BID 04/19/12 02/15/24 mg-collagen 50 mg-hyaluronic acid 2 mg cap multivitamin (Daily Vitamin tablet) 1 ea PO DAILY ##100 04/19/12 02/15/24 aspirin 81 mg chewable tablet 81 mg PO DAILY #100 tabs 11/19/16 02/15/24 omega-3 fatty acids-fish oil 340 1 ea PO DAILY 02/18/17 02/15/24 mg-1,000 mg capsule (Fish Oil) blood sugar diagnostic (Blood #400 ea 09/10/19 02/15/24 Glucose Test strips) pen needle, diabetic 31 gauge x ##400 09/07/21 02/15/24/16 (Pen Needle) insulin glargine 100 unit/mL (3 34 unit (0.34 mL) subcut HS Dx: 06/23/23 02/15/24 mL) subcutaneous pen (Lantus E11.9 to maintain HbA1c less than Solostar U-100 Insulin) 7%. #31 mL flash glucose sensor (FreeStyle #2 kits 08/22/23 02/15/24 Shilpa 14 Day Sensor kit) omeprazole 20 mg capsule,delayed 20 mg PO DAILY #90 caps 08/29/23 02/15/24 release semaglutide 1 mg/dose (4 mg/3 mL) 1 mg (0.75 mL) subcut QWEEK #9 mL 08/29/23 02/15/24 subcutaneous pen injector (Ozempic) sildenafil 100 mg tablet See Rx Instructions .Route 09/28/23 02/15/24 .COMPLEX #20 tabs metformin 1,000 mg tablet See Rx Instructions .Route 11/09/23 02/15/24 .COMPLEX #180 tabs atorvastatin 80 mg tablet See Rx Instructions .Route 12/07/23 02/15/24 .COMPLEX #90 tabs fenofibrate nanocrystallized 145 See Rx Instructions .Route 01/10/24 02/15/24 mg tablet .COMPLEX #90 tabs lisinopril 10 mg tablet 10 mg PO DAILY #90 tab-caps 01/10/24 02/15/24 Previous Rx's ?Medication ?Instructions ?Recorded aspirin 81 mg chewable tablet 81 mg PO DAILY #100 tabs 11/19/16 blood sugar diagnostic (Blood #400 ea 09/10/19 Glucose Test strips) pen needle, diabetic 31 gauge x ##400 09/07/2106/29 (Pen Needle) insulin glargine 100 unit/mL (3 34 unit (0.34 mL) subcut HS Dx: 06/23/23 mL) subcutaneous pen (Lantus E11.9 to maintain HbA1c less than Solostar U-100 Insulin) 7%. #31 mL flash glucose sensor (FreeStyle #2 kits 08/22/23 Shilpa 14 Day Sensor kit) omeprazole 20 mg capsule,delayed 20 mg PO DAILY #90 caps 08/29/23 release semaglutide 1 mg/dose (4 mg/3 mL) 1 mg (0.75 mL) subcut QWEEK #9 mL 08/29/23 subcutaneous pen injector (Ozempic) sildenafil 100 mg tablet See Rx Instructions .Route 09/28/23 .COMPLEX #20 tabs metformin 1,000 mg tablet See Rx Instructions .Route 11/09/23 .COMPLEX #180 tabs atorvastatin 80 mg tablet See Rx Instructions .Route 12/07/23 .COMPLEX #90 tabs fenofibrate nanocrystallized 145 See Rx Instructions .Route 01/10/24 mg tablet .COMPLEX #90 tabs lisinopril 10 mg tablet 10 mg PO DAILY #90 tab-caps 01/10/24 Allergies Allergy/AdvReac Type Severity Reaction Status Date / Time No Known Allergies Allergy Verified 01/09/24 15:10 General [place]: 2 Review of Systems Narrative: Per HPI Exam Narrative Exam Narrative: Const: WDWN male in NAD. VS per triage. HEENT: NC/AT. Normal facial exam. Neck: Supple. Trachea midline. Lungs: Normal respiratory effort. Lungs are clear. Cor: RRR without murmur. Good radial pulses. GI: Soft/ND/NT. Neuro: A+O x 3. Normal speech, mentation, gait. Cranial nerves II - XII grossly intact. No gross motor or sensory deficit. Ext: No C/C/E. Medical Decision Making Patient presenting to ED with left back and abdominal pain similar to previous kidney stone. He is not febrile. Abdomen is benign. IV established and ketorolac, morphine given for pain. CBC, BMP, urinalysis ordered. CT stone study to be obtained. Patient is much more comfortable. Laboratory studies are reassuring and urine is not infected. CT has been completed for some time. Still waiting for radiology read. Medical Records Medical records reviewed: Yes I reviewed the patient's medical records. Medical records narrative: urology notes Lab Data Lab results reviewed: Yes I reviewed the patient's lab results. 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 layer exposed (Acute) Diabetic foot ulcer (Acute) Family history of colon cancer in mother (Chronic) Multiple thyroid nodules (Acute) ENT Erectile dysfunction (Acute) History of colon polyps (Acute) Chronic rhinitis (Chronic 09/01/12) Medical History Other and unspecified hyperlipidemia (04/19/12) Baseline 04/2005: TG 1175 ; PCEq risk 19% LDL baseline 161; high intensity statin & fibrate therapy Sleep apnea (09/01/12) intolerant CPAP; has lost weight since dx Type 2 diabetes mellitus, with long-term current use of insulin (~1998) HbA1c goal </= 7-7.5%; dx'ed 24yo 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 Gastroesophageal reflux disease (04/19/12) Essential hypertension (02/21/13) Diverticulosis Fracture of pelvis (03/30/13) Surgical History H/O colonoscopy 08/21/20 with polypectomy Repair, Tendon or Muscle L ankle Family History (Updated 08/29/23 @ 08:58 by Gloria Valdes NP) Mother Colon cancer Father Essential hypertension Hyperlipidemia Brother Hyperlipidemia Multiple sclerosis Social History Smoking/Tobacco Use Status: Current-Occasional Tobacco Type: cigarettes Smoking packs per day: 1 Smoking cigarettes per day: 20.0 Second Hand Exposure: Yes Smoking risk assessment performed?: Yes Alcohol Intake: current Alcohol Intake frequency: a few times a month Drug use: Daily Substance use type: marijuana 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[employer]) Pets and animals: Yes Pets and animals: dog(s) Sexually active: Yes Current gender identity: male What is your relationship status?: Panel score (0-1 are the most socially isolated patients): 1 What type of physical activity do you participate in: none and other Details: Stays active with work, hunting, fishing, etc Duration: < 15 minutes/day Frequency: does not exercise Seatbelt use: never Drive intox or ride w/intox security patrol driver: No Water heater temp set <120 deg: Yes Working smoke detector in home: Yes Fire extinguisher in home: Yes Carbon monox detector in home: Yes Do you feel safe at home: Yes Do you feel safe in your relationship?: Yes
[2024-02-15 02:45] VITALS: BP 185/101; PULSE 94; RESP 22; TEMP 36.8
--- NOTE | 2024-02-15 02:45 | DI.CT_ITS ---
Exam(s) CT RENAL COLIC WO EXAM: CT RENAL COLIC WO CLINICAL HISTORY: left back/abd pain. TECHNIQUE: Imaging Protocol: Axial computed tomography images with coronal and sagittal reformatted images were created and reviewed CONTRAST MATERIAL: Intravenous: none Oral: None COMPARISON: CT CT ABDOMEN PELVIS WO from 01/02/2024 FINDINGS: VISUALIZED LUNG BASES: No nodules nor pleural effusions evident. ABDOMEN: There is no ascites. LIVER: There are no obvious focal hepatic lesions evident of this noninfused study. GALLBLADDER/BILIARY: No obvious gallbladder pathology. CBD is not dilated. PANCREAS: No evidence of pancreatic mass nor dilatation of the pancreatic duct. SPLEEN: Spleen is not enlarged. No obvious intrasplenic lesions. ADRENALS: There are no significant adrenal masses. KIDNEYS:Right kidney unremarkable. On the left side there have been interval urologic procedures on 01/02/2024 and 03/05/2023. The recently placed left ureteral stent is no longer seen. The previo usly present 1 cm calculus at the left ureteropelvic junction (upper ureter) is no longer seen. It h as been fragmented and there are multiple smaller fragments in the lower pole calyx of the left kidne y. However, there is also an obstructing calculus at the mid left ureter level, approximately L4 lev el, this calculus measuring 6 x 5 mm. There is dilatation of the ureter above this level. The left ureter below this level is collapsed and there are no additional calculi seen in the lower left urete r nor within the urinary bladder lumen. There is, however, significant amount of ipsilateral perinep hric streaking which was also previously present and is unchanged. ABDOMINAL AORTA: Abdominal aorta is not enlarged. LYMPH NODES: There is no retroperitoneal nor paraaortic adenopathy. ABDOMINAL WALL: No evidence of significant anterior abdominal wall nor inguinal hernia. GI: There is no evidence of bowel obstruction, free air, nor abscess. PELVIS: LYMPH NODES: There is no intrapelvic nor inguinal adenopathy. GI: No evidence of appendicitis.No evidence of sigmoid diverticulitis. URINARY BLADDER: Not distended. No radiopaque calculi in the lumen. No obvious masses. REPRODUCTIVE: Enlarged prostate. Measures 6 cm wide. No significant obturator adenopathy. OSSEOUS: No fractures. The previously described nonexpansile lucent bone lesion in the posterior aspect of the L3 vertebral body is again noted, unchanged. There is no discontinuity of the posterior cortex of the L3 vertebra l body. No impingement upon the spinal canal. There is again noted a flow focus of discontinuity of the inferior endplate of L3 at the level of this bone lesion. There are no other bone lesions ident ified. IMPRESSION: 1. Compared to the recent CT scan of 01/02/2024 there has been interval urologic instrumentation proc edure on the 1 cm calculus which was previously present in the upper left ureter UPJ level. There wa s subsequent placement of a left ureteral stent which is no longer present. One of the fractured je culus fragments is now evident in the mid left ureter (L4 level), this measuring 6 x 5 mm and there i s mild-moderate ipsilateral hydronephrosis and perinephric streaking above this level. There are mul tiple smaller calculus fragments in the lower pole calyx of the left kidney. There are no radiopaque calculi evident in the nondistended urinary bladder. The opposite right kidney remains unremarkable with no calculi within the right collecting system. 2. Previously described lucent nonexpansile bone lesion in the posterior aspect of L3 vertebral body is again noted. There does not appear to be dehiscence of the posterior cortex of L3 vertebral body at this level and no impingement upon the spinal canal. This probable benign bone lesion again measu res 17 x 15 x 20 mm. First read by [facility]. RADIATION DOSE DELIVERED: 700.1mGy.cm Total DLP DATA REPOSITORY: All CT scans at this facility are submitted to the National Radiology Data Registry (NRDR) Dose Index Registry (DIR) with the [employer] (ACR). RADIATION OPTIMIZATION: All CT scans at this facility use at least one of these dose optimization te chniques: automated exposure control; mA and/or kV adjustment per patient size (includes targeted exa ms where dose is matched to clinical indication); or iterative reconstruction.
[2024-02-15] MEDS: MORPHine 4 MG/ML SYR IVP (02:55)
[2024-02-15] MEDS: Ketorolac 15 MG/ML VIAL IVP (02:55)
[2024-02-15 03:00] LABS: Abs Immature Grans 0.02 10^3/uL (0.0-0.06); Absolute Basophil Count 0.05 10^3/uL (0.0-0.2); Absolute Lymphocyte Count 2.08 10^3/uL (1.2-3.4); Absolute Monocyte Count 0.77 10^3/uL (0.1-0.8); Absolute Neutrophil Count 5.28 10^3/uL (1.2-6.7); Basophils % 0.6 %; Eosinophils % 2.4 %; HCT 41.2 % (40.0-50.0); HGB 13.7 g/dL (13.5-17.5); Immature Grans % 0.2 %; Lymphocytes % 24.8 %; MCH 27.8 pg (27.0-33.0); MCHC 33.3 % (32.0-36.0); MCV 84 fL (80-95); MPV 11.1 fL (8.0-11.0); Monocytes % 9.2 %; Neutrophils % 62.8 %; Platelet Count 238 10^3/uL (130-400); RBC 4.92 10^6/uL (4.36-5.78); RDW 13.6 % (11.8-14.1); RDW-SD 42.2 fL
[2024-02-15 03:05] LABS: Anion Gap 6.5 mmol/L (3-11); BUN 15 mg/dL (7-18); CO2 30.5 mmol/L (21.0-32.0); CREATININE 1.2 mg/dL (0.70-1.30); Calcium 9.7 mg/dL (8.5-10.1); Chloride 107 mmol/L (98-107); Estimated GFR 70.98 (mL/min/1.73m2); Glucose 169 mg/dL (74-106); Potassium 3.5 mmol/L (3.5-5.1); Sodium 144 mmol/L (136-145)
[2024-02-15 04:36] LABS: Bilirubin Negative (Negative); Blood Trace-lysed (Negative); Clarity Clear (Clear); Glucose 100 mg/dL (Negative); Ketones Trace mg/dL (Negative); Leukocyte Esterase Negative (Negative); Nitrite Negative (Negative); Specific Gravity >= 1.030 (1.005-1.025); pH 5.5 (5-8)
[2024-02-15 04:47] LABS: Bacteria Rare HPF (Negative); C & S Indicated? No; Casts Negative LPF (Negative); Crystals Negative HPF (Negative); Epithelial Cells Negative HPF (Negative); Mucus Trace (Negative)
[2024-02-15 07:01] VITALS: BP 139/81; PULSE 90; RESP 14; O2SAT 97
--- NOTE | 2024-02-15 07:29 | DI.VRAD_ITS ---
PROCEDURE INFORMATION: Exam: CT Abdomen And Pelvis Without Contrast Exam date and time: 02/15/2024 2:54 AM Age: 58 years old Clinical indication: Abdominal pain and other: L flank; Patient HX: Recent kidney stone; Additional info: L back and abd pain TECHNIQUE: Imaging protocol: Computed tomography of the abdomen and pelvis without contrast. Radiation optimization: All CT scans at this facility use at least one of these dose optimization techniques: automated exposure control; mA and/or kV adjustment per patient size (includes targeted exams where dose is matched to clinical indication); or iterative reconstruction. COMPARISON: CT ABDOMEN PELVIS WO 01/02/2024 7:30 AM FINDINGS: Lungs: The visualized portions of the lung bases are clear. Liver: Normal. No mass. Gallbladder and biliary ducts: Normal. No calcified stones. No ductal dilation. Pancreas: Normal. No ductal dilation. Spleen: Normal. No splenomegaly. Adrenal glands: Normal. No mass. Kidneys and ureters: There is a 5 mm by 7 mm stone in the mid left ureter, with mild to moderate hydronephrosis and perinephric edema. There are multiple non-obstructing bilateral renal calculi. Stomach and bowel: Unremarkable. No obstruction. No mucosal thickening. Appendix: A normal appendix is identified. Intraperitoneal space: Unremarkable. No free air. No significant fluid collection. Vasculature: Unremarkable. No abdominal aortic aneurysm. Lymph nodes: Unremarkable. No enlarged lymph nodes. Urinary bladder: Unremarkable as visualized. Reproductive: The prostate gland is enlarged. Bones/joints: Unremarkable. No acute fracture. Soft tissues: There are small bilateral fat containing inguinal hernias. IMPRESSION: 5 mm by 7 mm stone in the mid left ureter, with mild to moderate hydronephrosis and perinephric edema. Dictated and Authenticated by: Judy Dominguez MD. Ordering:ANDRZEJ Malik MD
[2024-02-15] MEDS: Tamsulosin 0.4 MG CAPCR PO (07:37)
--- NOTE | 2024-02-15 07:38 | W.EDPROG ---
Date of service: 02/15/24 Time of Service: 07:59 Medical Decision Making Patient was signed out to me by my colleague Dr. Castillo. Please refer to his HPI, physical exam, assessment plan. Urinalysis had returned negative for evidence of infection, no white count bandemia or left shift or fever. Patient's pain had completely resolved with the Toradol given by Dr. Castillo. At time of signout we are pending CT scan. It been 4 hours for pending read by the time I took over. Read came back shortly after signout, read shows evidence of 5 x 7 mm stone. Patient's renal function remains good. With no signs of renal failure. With complete pain resolution, no evidence of infection I do feel patient can be managed outpatient safely at this stage, we will give a dose of Flomax here, give prescription for Flomax and Toradol for home, recommend continued NSAID therapy. Patient will follow-up with Dr. Sesay outpatient for further potential management if stone does not pass. I have extensively reviewed the treatment plan and discharge instructions with the patient. I have addressed all patient concerns at this time. The patient was made aware of what symptoms to monitor for that would warrant a return to the emergency department. Discussed the plan with the patient, they demonstrate verbal understanding and agreement with our assessment and plan at this time. The documentation in this chart was dictated using [employer] dictation software. Please excuse any dictation errors. FINDINGS: Lungs: The visualized portions of the lung bases are clear. Liver: Normal. No mass. Gallbladder and biliary ducts: Normal. No calcified stones. No ductal dilation. Pancreas: Normal. No ductal dilation. Spleen: Normal. No splenomegaly. Adrenal glands: Normal. No mass. Kidneys and ureters: There is a 5 mm by 7 mm stone in the mid left ureter, with mild to moderate hydronephrosis and perinephric edema. There are multiple non-obstructing bilateral renal calculi. Stomach and bowel: Unremarkable. No obstruction. No mucosal thickening. Appendix: A normal appendix is identified. Intraperitoneal space: Unremarkable. No free air. No significant fluid collection. Vasculature: Unremarkable. No abdominal aortic aneurysm. Lymph nodes: Unremarkable. No enlarged lymph nodes Urinary bladder: Unremarkable as visualized. Reproductive: The prostate gland is enlarged. Bones/joints: Unremarkable. No acute fracture. Soft tissues: There are small bilateral fat containing inguinal hernias. IMPRESSION: 5 mm by 7 mm stone in the mid left ureter, with mild to moderate hydronephrosis and perinephric edema. Thank you for allowing us to participate in the care of your patient. Dictated and Authenticated by: Judy Dominguez MD 02/15/2024 7:29 AM Eastern Time ([place] & [place]) Quality:SDOH Health Related Social Needs: No Data to Display Discharge Plan Disposition Patient Disposition: Home Condition: Good Discharge Details Clinical Impression: Ureterolithiasis Primary Care Provider: Gloria Valdes ED Provider: Dennys Scott Home Meds and New Rx's Prescriptions: New ketorolac 10 mg tablet 10 mg PO TID 5 Days Qty: 15 0RF tamsulosin [Flomax] 0.4 mg capsule 0.4 mg PO DAILY Qty: 7 0RF No Action Ozempic 1 mg/dose (4 mg/3 mL) pen injector 1 mg subcut QWEEK Qty: 9 3RF omeprazole 20 mg capsule,delayed release(DR/EC) 20 mg PO DAILY Qty: 90 3RF Rx Instructions: Take on an empty stomach at least 30 minutes before first meal. multivitamin [Daily Vitamin] 1 EACH tablet 1 ea PO DAILY Qty: 100 lxtnsnmp-ysbp-rmmaqp-hyalur ac 1 EACH capsule 1 ea PO BID aspirin 81 MG tablet,chewable 81 mg PO DAILY Qty: 100 3RF Fish Oil 1 EACH capsule 1 ea PO DAILY (DME) Blood Glucose Test Strip See Rx Instructions .ROUTE .MEDSUPPLY Qty: 400 3RF Rx Instructions: As directed to check blood glucose four times daily. On insulin. Dispense covered brand. (DME) pen needle, diabetic [Pen Needle] 31 gauge x 5/16 needle 1 ea Miscellaneous QID Qty: 400 3RF Rx Instructions: 31G 5/16 Dx: E11.9 To maintain HbA1C less than 7% insulin glargine [Lantus Solostar U-100 Insulin] 100 unit/mL (3 mL) insulin pen 34 unit subcut HS Qty: 31 3RF (DME) FreeStyle Shilpa 14 Day Sensor Kit See Rx Instructions .ROUTE .COMPLEX Qty: 2 6RF Dose Instruction: USE DIRECTED TO KEEP HBA1C LESS THAN 7% Rx Instructions: USE DIRECTED TO KEEP HBA1C LESS THAN 7% sildenafil 100 mg tablet See Rx Instructions .ROUTE .COMPLEX Qty: 20 11RF Dose Instruction: TAKE ONE TABLET BY MOUTH 30 MIN TO 4 HOURS BEFORE ACTIVITY Rx Instructions: TAKE ONE TABLET BY MOUTH 30 MIN TO 4 HOURS BEFORE ACTIVITY metformin 1,000 mg tablet See Rx Instructions .ROUTE .COMPLEX Qty: 180 3RF Dose Instruction: TAKE ONE TABLET BY MOUTH TWICE A DAY FOR DIABETES Rx Instructions: TAKE ONE TABLET BY MOUTH TWICE A DAY FOR DIABETES atorvastatin 80 mg tablet See Rx Instructions .ROUTE .COMPLEX Qty: 90 3RF Dose Instruction: TAKE ONE TABLET BY MOUTH EVERY DAY Rx Instructions: TAKE ONE TABLET BY MOUTH EVERY DAY lisinopril 10 mg tablet 10 mg PO DAILY Qty: 90 3RF fenofibrate nanocrystallized 145 mg tablet See Rx Instructions .ROUTE .COMPLEX Qty: 90 3RF Dose Instruction: TAKE ONE TABLET BY MOUTH EVERY DAY Rx Instructions: TAKE ONE TABLET BY MOUTH EVERY DAY Discharge Instructions Instructions: Kidney Stone, Adult ED Additional Instructions: At this time you have evidence of a small kidney stone. This is likely the cause of your symptoms. This should pass within the next 12 to 48 hours, if not earlier. Please drink plenty of fluids, 10 to 12 cups/day at least. Please take 10 mg of ketorolac every 8 hours and 1000 mg of Tylenol every 6 hours as needed for pain. These are the maximum doses of these medicines. Please take the Flomax as directed. This will help in expediting the passage of your kidney stone. If your pain stops, you can stop taking the Flomax. Please strain your urine to collect the stone. This can then be analyzed by your family doctor. If you do not have resolution of your symptoms after 48 to 72 hours please follow-up closely with your family doctor or return here for reassessment. If your pain persists, you may need to have the stone removed by the urologist Dr. Sesay. If you notice any worsening of your symptoms, or any new symptoms such as inability to urinate, vomiting, diarrhea, fever, chills, shortness of breath, chest pain, numbness, weakness, or fainting , please return immediately to the emergency department for reevaluation. Please follow up with your primary care provider as soon as possible for reassessment and reevaluation. As always, it was a pleasure participating in your medical care today. Referrals: Tao Sesay MD [ [facility] STAFF PHYSICIAN] - MacLeod,Gloria L, LICENSED PHYSICAL THERAPIST ASSISTANT [Primary Care Provider] -
[2024-02-15 07:53] VITALS: BP 151/87; PULSE 87; RESP 19; TEMP 37.1; O2SAT 99
== END 2024-02-15 07:55 | disposition home or self-care (01) ==
PROVIDERS: Emergency Medicine; Emergency Provider Student in an Organized Health Care Education/Training Program; PCP Nurse Practitioner Adult Health
DX: N20.1 Calculus of ureter (principal); Z87.442 Personal history of urinary calculi
CPT/HCPCS: 00123; 36415; 80048; 96374; 96375; 99284; 74176; 81003; 81015; 85025; J1885; J2270

== ENCOUNTER 2024-02-20 03:57 | Outpatient (CLI) | payer MEDICAID, SELFPAY ==
[2024-02-20 08:16] LABS: Hemoglobin A1C 6.7 % (<5.7)
[2024-02-20 08:34] LABS: COMMENT (LAB VIEW ONLY) 56.47 mg/dL; Microalb ug/mg Crea 21.3 ug/mg Cr
[2024-02-20 08:35] LABS: Anion Gap 6.4 mmol/L (3-11); BUN 15 mg/dL (7-18); CO2 30.6 mmol/L (21.0-32.0); Calcium 9.4 mg/dL (8.5-10.1); Calculated LDL 78 mg/dL (<100); Chloride 105 mmol/L (98-107); Cholesterol 156 mg/dL (<200); Estimated GFR 88.33 (mL/min/1.73m2); Glucose 140 mg/dL (74-106); HDL Cholesterol 61 mg/dL (40-60); Potassium 3.9 mmol/L (3.5-5.1); Sodium 142 mmol/L (136-145); Triglyceride 89 mg/dL (<150)
[2024-02-20 19:33] LABS: PSA, Screening 2.3 ng/mL (<=3.5)
== END 2024-02-20 03:58 | disposition home or self-care (01) ==
LOC: LBO 03:57
PROVIDERS: PCP Nurse Practitioner Adult Health; Referring Provider Nurse Practitioner Adult Health; Visit Provider Nurse Practitioner Adult Health
DX: I10 Essential (primary) hypertension (principal); E78.5 Hyperlipidemia, unspecified; E11.65 Type 2 diabetes mellitus with hyperglycemia; Z79.4 Long term (current) use of insulin; K21.9 Gastro-esophageal reflux disease without esophagitis
CPT/HCPCS: 36415; 80048; 80061; 84153; 82043; 82570; 83036

== ENCOUNTER 2024-03-01 06:14 | Day surgery (SDC) | payer MEDICAID, SELFPAY ==
[2024-03-01] VITALS (19 sets, daily range): BP systolic 98–143; BP diastolic 75–88; PULSE 60–79; RESP 10–30; TEMP 36–36.5; O2SAT 94–100; BMI 27.6
[2024-03-01] MEDS: Lactated Ringers 1,000 ML 80 ML IV (06:45)
--- NOTE | 2024-03-01 06:54 | HPE_ITS ---
Date of service: 03/01/24 Time of Service: 06:55 Assessment and Plan Assessment and plan (1) Ureterolithiasis: Status: Acute Assessment and plan: We will move ahead with cystoscopy, left retrograde pyelogram, left ureteroscopy and holmium laser lithotripsy of his residual stones. If we need to leave a ureteral stent, we will not leave a safety string attached knowing that we will need a return visit to the operating room to do cystoscopy and stent removal. History of Present Illness History of Present Illness Chief Complaint: Left uretral stone Narrative: Chief complaint: Left ureteral stone This is a 58-year-old gentleman who has a history of a large left UPJ stone. He was treated with ureteroscopy and holmium laser lithotripsy of the stone. We extracted stone fragments and had planned on a follow-up for renal ultrasound. His stone was 100% calcium oxalate monohydrate In the interim, he presented to the emergency department with left renal colic. A fragment was found in the left mid ureter. His pain was controlled and he was discharged to home. He tells me he does not have pain at this point but has not passed his stone. He has an upcoming trip planned and he is concerned that he may have renal colic while he is on the road. He presents now for ureteroscopy and stone manipulation. He has some mild discomfort, but no severe flank pain. He has no fever or chills. He has not seen any gross hematuria. Review of Systems Narrative: No fevers or chills Rhinitis. No vision change or dysphasia Diabetes. Thyroid nodules No shortness of breath, cough or hemoptysis No chest pain or palpitations GERD. No hepatitis, ulcers, jaundice, diarrhea or constipation No seizures, strokes or peripheral neuropathy No bleeding disorders or anemia No gout PFSH All Active Problems Sleep apnea (Acute 09/01/12) intolerant CPAP; has lost weight since dx Other and unspecified hyperlipidemia (Acute 04/19/12) Baseline 04/2005: TG 1175 ; PCEq risk 19% LDL baseline 161; high intensity statin & fibrate therapy 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 (Acute) Essential hypertension (Chronic 02/21/13) Gastroesophageal reflux disease (Chronic 04/19/12) Type 2 diabetes mellitus, with long-term current use of insulin (Acute ~1998) HbA1c goal </= 7-7.5%; dx'ed 24yo Benign neoplasm of colon, unspecified (Acute 02/24/11) tubular adenoma Hydronephrosis of left kidney (Acute) Ureterolithiasis (Acute) Lesion of lumbar spine (Acute) Non-pressure chronic ulcer of left ankle with fat layer exposed (Acute) Family history of colon cancer in mother (Chronic) Multiple thyroid nodules (Acute) ENT Erectile dysfunction (Acute) History of colon polyps (Acute) Chronic rhinitis (Chronic 09/01/12) Medical History Diverticulosis Fracture of pelvis (03/30/13) Surgical History (Updated 03/01/24 @ 06:39 by Araceli Mccloud RN) Hx of cystoscopy H/O colonoscopy 08/21/20 with polypectomy Repair, Tendon or Muscle L ankle Family History (Updated 08/29/23 @ 08:58 by Gloria Valdes NP) Mother Colon cancer Father Essential hypertension Hyperlipidemia Brother Hyperlipidemia Multiple sclerosis Social History Smoking/Tobacco Use Status: Current-Occasional Tobacco Type: cigarettes Smoking packs per day: 1 Smoking cigarettes per day: 20.0 Second Hand Exposure: Yes Smoking risk assessment performed?: Yes Alcohol Intake: current Alcohol Intake frequency: a few times a month Drug use: Daily Substance use type: marijuana Details: Used marijuana in the last 24 hours. 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[employer]) Pets and animals: Yes Pets and animals: dog(s) Sexually active: Yes Current gender identity: male What is your relationship status?: Panel score (0-1 are the most socially isolated patients): 1 What type of physical activity do you participate in: none and other Details: Stays active with work, hunting, fishing, etc Duration: < 15 minutes/day Frequency: does not exercise Seatbelt use: never Drive intox or ride w/intox 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 Water heater temp set <120 deg: Yes Working smoke detector in home: Yes Fire extinguisher in home: Yes Carbon monox detector in home: Yes Do you feel safe at home: Yes Do you feel safe in your relationship?: Yes Additional Social history: [facility] Meds Allergies and Home Medications Allergies Allergy/AdvReac Type Severity Reaction Status Date / Time No Known Allergies Allergy Verified 03/01/24 06:34 Home Medications ?Medication ?Instructions ?Recorded ?Confirmed ?Type glucosamin 375 mg-chond 300 1 ea PO BID 04/19/12 03/01/24 History mg-collagen 50 mg-hyaluronic acid 2 mg cap multivitamin (Daily Vitamin tablet) 1 ea PO DAILY ##100 04/19/12 03/01/24 History omega-3 fatty acids-fish oil 340 1 ea PO DAILY 02/18/17 03/01/24 History mg-1,000 mg capsule (Fish Oil) blood sugar diagnostic (Blood #400 ea 09/10/19 02/27/24 Rx Glucose Test strips) pen needle, diabetic 31 gauge x ##400 09/07/21 02/27/24 Rx 06/29 (Pen Needle) insulin glargine 100 unit/mL (3 34 unit (0.34 mL) subcut HS Dx: 06/23/23 03/01/24 Rx mL) subcutaneous pen (Lantus E11.9 to maintain HbA1c less than Solostar U-100 Insulin) 7%. #31 mL omeprazole 20 mg capsule,delayed 20 mg PO DAILY #90 caps 08/29/23 03/01/24 Rx release sildenafil 100 mg tablet See Rx Instructions .Route 09/28/23 03/01/24 Rx .COMPLEX #20 tabs metformin 1,000 mg tablet See Rx Instructions .Route 11/09/23 03/01/24 Rx .COMPLEX #180 tabs atorvastatin 80 mg tablet See Rx Instructions .Route 12/07/23 03/01/24 Rx .COMPLEX #90 tabs fenofibrate nanocrystallized 145 See Rx Instructions .Route 01/10/24 03/01/24 Rx mg tablet .COMPLEX #90 tabs flash glucose sensor (FreeStyle #2 kits 02/20/24 02/27/24 Rx Shilpa 14 Day Sensor kit) tamsulosin 0.4 mg capsule (Flomax) 0.4 mg PO DAILY #7 caps 02/23/24 03/01/24 Rx diclofenac sodium 100 mg 100 mg PO BID PRN pain #20 tabs 02/24/24 03/01/24 Rx tablet,extended release 24 hr lisinopril 20 mg tablet 20 mg PO DAILY #90 tabs 02/27/24 03/01/24 Rx semaglutide 0.25 mg or 0.5 mg (2 0.5 mg (0.374 mL) subcut QWEEK 02/27/24 02/28/24 Rx mg/1.5 mL) subcutaneous pen #1.5 mL injector ketorolac 10 mg tablet mg 03/01/24 History Exam Const General: cooperative Neck Neck: supple Resp Effort & Inspection: normal respiratory effort Auscultation: clear to auscultation bilaterally Cardio Rate: regular rate Rhythm: regular rhythm GI Palpation: soft and no masses Neuro General: patient alert, patient awake and patient oriented x3 Results Last Vital Signs Temp 36.5 C 03/01/24 06:25 Pulse 73 03/01/24 06:25 Resp 17 03/01/24 06:25 BP 143/83 H 03/01/24 06:25 Pulse Ox 98 03/01/24 06:25 Time Spent Time spent with Patient: <40 minutes Time was spent: other
--- NOTE | 2024-03-01 07:26 | W.ANESPRE ---
General Info Date of Service Date Performed: 03/01/24 Height: 6 ft 2 in Weight: 97.6 kg Body Mass Index (BMI): 27.6 Surgical Procedure: Operation Date: 03/01/24 07:40 Proposed Procedure Side Surgeon p Cystoscopy/Laser/Retrograde/Ureteroscopy/ Possible Stent Left Tao Sesay MD Meds Allergies and Home Medications Allergies Allergy/AdvReac Type Severity Reaction Status Date / Time No Known Allergies Allergy Verified 03/01/24 06:34 Home Medication ?Medication ?Instructions ?Recorded glucosamin 375 mg-chond 300 1 ea PO BID 04/19/12 mg-collagen 50 mg-hyaluronic acid 2 mg cap multivitamin (Daily Vitamin tablet) 1 ea PO DAILY ##100 04/19/12 omega-3 fatty acids-fish oil 340 1 ea PO DAILY 02/18/17 mg-1,000 mg capsule (Fish Oil) blood sugar diagnostic (Blood #400 ea 09/10/19 Glucose Test strips) pen needle, diabetic 31 gauge x ##400 09/07/2106/29 (Pen Needle) insulin glargine 100 unit/mL (3 34 unit (0.34 mL) subcut HS Dx: 06/23/23 mL) subcutaneous pen (Lantus E11.9 to maintain HbA1c less than Solostar U-100 Insulin) 7%. #31 mL omeprazole 20 mg capsule,delayed 20 mg PO DAILY #90 caps 08/29/23 release sildenafil 100 mg tablet See Rx Instructions .Route 09/28/23 .COMPLEX #20 tabs metformin 1,000 mg tablet See Rx Instructions .Route 11/09/23 .COMPLEX #180 tabs atorvastatin 80 mg tablet See Rx Instructions .Route 12/07/23 .COMPLEX #90 tabs fenofibrate nanocrystallized 145 See Rx Instructions .Route 01/10/24 mg tablet .COMPLEX #90 tabs flash glucose sensor (FreeStyle #2 kits 02/20/24 Shilpa 14 Day Sensor kit) tamsulosin 0.4 mg capsule (Flomax) 0.4 mg PO DAILY #7 caps 02/23/24 diclofenac sodium 100 mg 100 mg PO BID PRN pain #20 tabs 02/24/24 tablet,extended release 24 hr lisinopril 20 mg tablet 20 mg PO DAILY #90 tabs 02/27/24 semaglutide 0.25 mg or 0.5 mg (2 0.5 mg (0.374 mL) subcut QWEEK 02/27/24 mg/1.5 mL) subcutaneous pen #1.5 mL injector ketorolac 10 mg tablet mg 03/01/24 Current Visit Medications: Current Medications Generic Name Dose Route Start Last Admin Trade Name Edel PRN Reason Stop Dose Admin Cefazolin Sodium/Dextrose 2 gm in 50 mls @ 100 mls/hr 03/01/24 06:00 Ancef Duplex IVPB 03/01/24 23:59 PREOP LISSA Ringer's Solution 1,000 mls @ 80 mls/hr 03/01/24 06:15 03/01/24 06:45 IV 03/31/24 06:14 80 mls/hr INFUSION LISSA Administration IV Miscellaneous Supplies 1 each 03/01/24 06:00 Iv Access IV 03/01/24 23:59 DIRECTED LISSA Sodium Chloride 0 ml 03/01/24 06:00 Normal Saline Flush 10 Ml Syr IV 03/01/24 23:59 PRN PRN Sodium Chloride 0 ml 03/01/24 06:00 Normal Saline 10 Ml Vial IJ 03/01/24 23:59 DIRECTED PRN Sterile Water 0 ml 03/01/24 06:00 Water,Injection,Sterile 10 Ml Vial IJ 03/01/24 23:59 DIRECTED PRN PFSH Active Problems Active Problems: Problem Status Onset Code Sleep apnea Acute 09/01/12 G47.30 Other and unspecified hyperlipidemia Acute 04/19/12 E78.5 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 Acute K22.70 Essential hypertension Chronic 02/21/13 I10 Gastroesophageal reflux disease Chronic 04/19/12 K21.9 Type 2 diabetes mellitus, with long-term current use of insulin Acute ~1998 E11.9, Z79.4 Benign neoplasm of colon, unspecified Acute 02/24/11 D12.6 Hydronephrosis of left kidney Acute N13.30 Ureterolithiasis Acute N20.1 Lesion of lumbar spine Acute M89.9 Non-pressure chronic ulcer of left ankle with fat layer exposed Acute L97.322 Family history of colon cancer in mother Chronic Z80.0 Multiple thyroid nodules Acute E04.2 Erectile dysfunction Acute N52.9 History of colon polyps Acute Z86.010 Chronic rhinitis Chronic 09/01/12 J31.0 Medical History Medical History Diverticulosis Fracture of pelvis (03/30/13) Medical History Comments:: patient stated he doesn't know his last BM Surgical History Surgical History (Updated 03/01/24 @ 06:39 by Araceli Mccloud RN) Hx of cystoscopy H/O colonoscopy 08/21/20 with polypectomy Repair, Tendon or Muscle L ankle Tobacco Smoking/Tobacco Use Status: Current-Occasional Tobacco Type: cigarettes Smoking packs per day: 1 Smoking cigarettes per day: 20.0 Passive smoking exposure: Yes Second hand exposure: Yes Alcohol Alcohol Intake: current Alcohol intake frequency: a few times a month Substance Use Substance use: Daily Substance use type: marijuana Details: Used marijuana in the last 24 hours. Vital Signs and Lab Results Vital Signs Most Recent Vital Signs in EMR: Most Recent Vital Signs Temp Pulse Resp BP Pulse Ox 36.5 C 73 17 143/83 H 98 03/01/24 06:25 03/01/24 06:25 03/01/24 06:25 03/01/24 06:25 03/01/24 06:25 Point of Care Results Point of Care Results: Finger Stick Blood Glucose 129 03/01/24 06:44 Lab Results Blood Type / Crossmatch: No Data to Display Complete Blood Count: White Blood Count 8.40 10^3/uL (4.4-10.8) 02/15/24 02:45 Red Blood Count 4.92 10^6/uL (4.36-5.78) 02/15/24 02:45 Hemoglobin 13.7 g/dL (13.5-17.5) 02/15/24 02:45 Hematocrit 41.2 % (40.0-50.0) 02/15/24 02:45 Platelet Count 238 10^3/uL (130-400) 02/15/24 02:45 Complete Metabolic Panel: Sodium 142 mmol/L (136-145) 02/20/24 07:12 Potassium 3.9 mmol/L (3.5-5.1) 02/20/24 07:12 Chloride 105 mmol/L (98-107) 02/20/24 07:12 Carbon Dioxide 30.6 mmol/L (21.0-32.0) 02/20/24 07:12 BUN 15 mg/dL (7-18) 02/20/24 07:12 Creatinine 1.0 mg/dL (0.70-1.30) 02/20/24 07:12 Est GFR (CKD-EPI 2020) 88.33 (mL/min/1.73m2) 02/20/24 07:12 Calcium 9.4 mg/dL (8.5-10.1) 02/20/24 07:12 Glucose 140 mg/dL (74-106) H 02/20/24 07:12 Hemoglobin A1c 6.7 % (<5.7) H 02/20/24 07:12 Liver Function Panel: No Data to Display Coagulation Panel: No Data to Display Cardiac Panel: No Data to Display Arterial Blood Gas: No Data to Display Venous Blood Gas: No Data to Display Pancreas Panel: No Data to Display Thyroid Panel: No Data to Display Infectious Disease: No Data to Display Blood Cultures: No Data to Display Toxicology Panel: No Data to Display Anesthesia Assessment and Plan Anesthesia History Personal History: No History of Anesthesia Complications Family History: No Family History of Anesthesia Complications Exercise Tolerance Exercise Tolerance: Metabolic Equivalents>4 Pertinent Negatives Pertinent Negatives: No Major Cardiovascular Symptoms or Complaints and No Major Pulmonary Symptoms or Complaints Cardiac & Pulmonary Exam Cardiac Exam: Normal S1/S2 Heart Sounds Pulmonary Exam: Clear Bilateral Breath Sounds Implantable Cardiac Device Does patient have a Pacemaker or an ICD?: No Airway Exam Known Difficult Airway: No Mallampati Class: 3 Mouth Opening: Normal (> 3cm) Thyromental Distance: Greater than 3 cm Neck Range of Motion: Full ROM Neck Circumference: Normal Teeth Condition: Normal Dentition ASA Classification ASA Score: ASA 3 Emergency Case?: No NPO Status NPO Status: NPO Clears >2 hours, Solids >8 hours Anesthesia Plan Resuscitation Status: Full Code Anesthesia Technique: General Anesthesia Airway Planned: Endotracheal Tube Pain Management: Surgeon and patient request nerve block Monitors Used: Standard Monitors and SedLine Preoperative Comments:: Previous 2b airway with Glidescope, plan for GA/ETT.
[2024-03-01] MEDS: ceFAZolin 2 GM/50 ML BAG IVPB (07:44)
[2024-03-01] MEDS: Lidocaine 2% Jelly 11 ML SYR (08:03)
[2024-03-01] MEDS: Omnipaque 300 MG/ML 50 ML BTL (08:16)
--- NOTE | 2024-03-01 08:39 | DI.RAD_ITS ---
Exam(s) XR RETROGRADE IN OR EXAM: XR RETROGRADE IN OR CLINICAL HISTORY: URETEROLITHIASIS. TECHNIQUE: Fluoroscopy was provided for the referring physician for guidance with performing retrogr kaela procedure. COMPARISON: No exams were available for comparison FINDINGS: Hard copy images show placement of a left ureteral stent. Please see procedure note for details. Fluoro time: 43.2 seconds RADIATION DOSE DELIVERED: Ka,r=6.4 mGy
--- NOTE | 2024-03-01 08:48 | W.PM.DSUDISC ---
Date of service: 03/01/24 Discharge Plan Disposition Patient Disposition: Home Discharge Details Reason For Visit: ureteral stone Attending Provider: Tao Sesay Primary Care Provider: Gloria Valdes Home Meds and New Rx's Prescriptions: No Action omeprazole 20 mg capsule,delayed release(DR/EC) 20 mg PO DAILY Qty: 90 3RF Rx Instructions: Take on an empty stomach at least 30 minutes before first meal. lisinopril 20 mg tablet 20 mg PO DAILY Qty: 90 3RF Rx Instructions: BP & DM semaglutide 0.25 mg or 0.5 mg(2 mg/1.5 mL) pen injector 0.5 mg subcut QWEEK Qty: 1.5 11RF Rx Instructions: Dose decrease 02/27/24 tamsulosin [Flomax] 0.4 mg capsule 0.4 mg PO DAILY Qty: 7 0RF diclofenac sodium 100 mg tablet extended release 24 hr 100 mg PO BID PRN (Reason: pain) Qty: 20 0RF multivitamin [Daily Vitamin] 1 EACH tablet 1 ea PO DAILY Qty: 100 zzggndel-jsqk-hrtlrm-hyalur ac 1 EACH capsule 1 ea PO BID Fish Oil 1 EACH capsule 1 ea PO DAILY (DME) Blood Glucose Test Strip See Rx Instructions .ROUTE .MEDSUPPLY Qty: 400 3RF Rx Instructions: As directed to check blood glucose four times daily. On insulin. Dispense covered brand. (DME) pen needle, diabetic [Pen Needle] 31 gauge x 16 needle 1 ea Miscellaneous QID Qty: 400 3RF Rx Instructions: 31G 5/16 Dx: E11.9 To maintain HbA1C less than 7% insulin glargine [Lantus Solostar U-100 Insulin] 100 unit/mL (3 mL) insulin pen 34 unit subcut HS Qty: 31 3RF sildenafil 100 mg tablet See Rx Instructions .ROUTE .COMPLEX Qty: 20 11RF Dose Instruction: TAKE ONE TABLET BY MOUTH 30 MIN TO 4 HOURS BEFORE ACTIVITY Rx Instructions: TAKE ONE TABLET BY MOUTH 30 MIN TO 4 HOURS BEFORE ACTIVITY metformin 1,000 mg tablet See Rx Instructions .ROUTE .COMPLEX Qty: 180 3RF Dose Instruction: TAKE ONE TABLET BY MOUTH TWICE A DAY FOR DIABETES Rx Instructions: TAKE ONE TABLET BY MOUTH TWICE A DAY FOR DIABETES atorvastatin 80 mg tablet See Rx Instructions .ROUTE .COMPLEX Qty: 90 3RF Dose Instruction: TAKE ONE TABLET BY MOUTH EVERY DAY Rx Instructions: TAKE ONE TABLET BY MOUTH EVERY DAY fenofibrate nanocrystallized 145 mg tablet See Rx Instructions .ROUTE .COMPLEX Qty: 90 3RF Dose Instruction: TAKE ONE TABLET BY MOUTH EVERY DAY Rx Instructions: TAKE ONE TABLET BY MOUTH EVERY DAY (DME) FreeStyle Shilpa 14 Day Sensor Kit See Rx Instructions .ROUTE .COMPLEX Qty: 2 6RF Dose Instruction: USE DIRECTED TO KEEP HBA1C LESS THAN 7% Rx Instructions: USE DIRECTED TO KEEP HBA1C LESS THAN 7% ketorolac 10 mg tablet Patient Comments: TAKE ONE TABLET BY MOUTH THREE TIMES A DAY FOR 5 DAYS Discharge Instructions Additional Instructions: my office will contact you to arrange cystoscopy with stent removal in the OR next week no need to strain the urine Stand Alone Forms: Anesthesia Discharge Inst., [facility] ([facility]) Referrals: Tao Sesay MD [ [facility] STAFF PHYSICIAN] - 03/08/24 10:00 am Activity:: Activity as Tolerated Shower/Bathe:: 24 hours Diet:: As Tolerated Discharge Orders Discharge Orders: Discharge Order (Routine); Ordered 03/01/24 Ordered By: Tao Sesay DS: Diagnosis Discharge Diagnosis (1) Ureterolithiasis: Status: Acute
--- NOTE | 2024-03-01 08:50 | W.PM.OP ---
Operative Note Operative Note PRE-OP DIAGNOSIS: left ureteral stone POST-OP DIAGNOSIS: same PROCEDURE: Cystoscopy, left retrograde pyelogram, left flexible ureteroscopy with holmium laser lithotripsy, extraction of stone fragments, insert left ureteral stent SURGEON: Tao Sesay ANESTHESIA TYPE: Local By Surgeon and General LMA/ETT Refer to Anesthesia Record ESTIMATED BLOOD LOSS: 5 PATHOLOGY: other (Stone fragments for chemical analysis) COMPLICATIONS: None Patient was transported to: PACU Patient's condition: stable Implants: 6 Mozambican by 22 to 30 cm left ureteral stent Indications: This is a 58-year-old gentleman who previously was identified as having a large left UPJ stone. He was treated with ureteroscopy and holmium laser lithotripsy of the stone. On follow-up ureteroscopy, I did not see any stone fragments, but there were some clots within the collecting system. I presume that a stone was still within one of the clots because the patient presented back ureteroscopy and possible holmium laser lithotripsy of his stone to the emergency department about a month after his procedure with left flank pain. He is found to have a 5 mm stone in the left mid ureter. He presents for Findings: Left mid ureteral stone Procedure Description: The patient was given IV antibiotics and brought to the operating room on 03/01/2024. After successful induction of general anesthesia, he was placed in the dorsal lithotomy position. His genitalia was prepped with Betadine. 2% Xylocaine jelly was instilled into the urethra to act as a local anesthetic. The 22 Mozambican rigid cystoscope was passed through the urethra into the bladder. The urethra and bladder were inspected with the 30 degree lens. The pendulous, bulbar and membranous urethra appeared normal with no strictures. The prostatic urethra showed some lateral lobe enlargement but no significant median lobe. The bladder neck was entered and the bladder mucosa was inspected. No stone was seen within the bladder. The left orifice was visualized and was cannulated with a 6 Mozambican access catheter. A retrograde pyelogram was obtained by injecting Omnipaque through the access catheter under fluoroscopic guidance. The persistent mid left ureteral stone was outlined on fluoroscopy. I then passed a guidewire through the lumen of the access catheter and removed the catheter. I passed a dual-lumen catheter over the wire and positioned a second wire up the ureter. We chose one of the wires as a working wire and the other as a safety wire. We removed the dual-lumen catheter and passed a ureteral access sheath over the working wire leaving the safety wire in place. I then passed the flexible ureteroscope through the ureteral access sheath and was able to visualize a stone within the mid ureter. The stone appeared too large to grasp and remove by itself, so used a 272 ?m holmium laser fiber to fragment the stone into smaller pieces. I used dusting settings rather than fragmentation settings. The stone broke quite easily and I was then able to grasp multiple stone fragments and 0 tip stone basket and removed the fragments 1 at a time. The fragments were sent to pathology for chemical analysis. At the completion of the procedure, no large stone fragments remained. I removed the access sheath and passed a 6 Mozambican variable length stent over the safety wire. The proximal end of the stent was seen in the kidney under fluoroscopy. The distal end of the stent was seen in the bladder both under fluoroscopy and cystoscopy. The patient tolerated this procedure well with no complications. He will return to the OR in about a week to have his stent removed. Date of Procedure: 03/01/24
--- NOTE | 2024-03-01 09:33 | W.ANESPOSTOP ---
Postoperative Evaluation Date, Time and Location Date Performed: 03/01/24 Time Performed: 09:33 Patient Location: Day Surgery Unit Vital Signs Most Recent Imported Vital Signs: Most Recent Vital Signs Temp Pulse Resp BP Pulse Ox 36.0 C L 63 18 132/88 99 03/01/24 09:22 03/01/24 09:22 03/01/24 09:22 03/01/24 09:22 03/01/24 09:22 Pain Score Most Recent Pain Score: Most Recent Pain Score Pain Level 0 03/01/24 09:15 Assessment Mental Status: Awake (Alert & Oriented to Patient Baseline) Airway and Respiratory Function: Patent airway with normal (patient baseline) respiratory exam Cardiovascular Function: Hemodynamically Stable Hydration Status: Adequately Hydrated Nausea & Vomiting: No Nausea or Vomiting Pain: Pt. Denies Any Pain Peripheral Nerve Block: Patient did not receive a nerve block
[2024-03-01] MEDS: traMADol 50 MG TAB PO (09:41)
[2024-03-01] MEDS: Phenazopyridine 200 MG TAB PO (09:41)
[2024-03-07 14:10] LABS: Source: Left Ureter
== END 2024-03-01 10:06 | disposition home or self-care (01) ==
PROVIDERS: PCP Nurse Practitioner Adult Health; Visit Provider Urology
PROC: (CPT 52356; principal; 2024-03-01 07:30)
DX: N20.1 Calculus of ureter (principal); E11.9 Type 2 diabetes mellitus without complications; Z79.85 Long-term (current) use of injectable non-insulin antidiabetic drugs; I10 Essential (primary) hypertension
CPT/HCPCS: 52356; 74420; 82365; J0131; J0690; J1100; J1885; J2250; J2405; J2704; Q9967

== ENCOUNTER 2024-03-08 06:15 | Day surgery (SDC) | payer MEDICAID, SELFPAY ==
[2024-03-08] VITALS (13 sets, daily range): BP systolic 105–136; BP diastolic 68–92; PULSE 63–75; RESP 13–16; TEMP 36–36.7; O2SAT 94–99; BMI 27.3
[2024-03-08] MEDS: Lactated Ringers 1,000 ML 80 ML IV (06:52)
--- NOTE | 2024-03-08 06:56 | HPE_ITS ---
Date of service: 03/08/24 Time of Service: 06:56 Assessment and Plan Assessment and plan (1) Ureterolithiasis: Status: Acute Assessment and plan: We will plan to remove his ureteral stent. We will do a retrograde pyelogram to ensure that all ureteral stone fragments have been addressed. History of Present Illness History of Present Illness Chief Complaint: Left ureteral stone Narrative: This is a 58-year-old gentleman with a history of a large left renal stone. He was treated with ureteroscopy and holmium laser lithotripsy of the stone. There were residual fragments in the lower pole of the stone and one of them migrated into the mid ureter causing hydronephrosis and symptoms. He recently underwent ureteroscopy with holmium laser lithotripsy and extraction of his ureteral stone. We left a ureteral stent in place. He comes in now for stent removal and retrograde pyelogram to ensure his stones have been addressed. We will be prepared to run the ureteroscope up and extract any residual stone fragments that we identify. Review of Systems Narrative: No fevers or chills Rhinitis. No vision change or dysphasia Diabetes. Thyroid nodules No shortness of breath, cough or hemoptysis No chest pain or palpitations GERD. No hepatitis, ulcers, jaundice, diarrhea or constipation No seizures, strokes or peripheral neuropathy No bleeding disorders or anemia No gout PFSH All Active Problems Sleep apnea (Acute 09/01/12) intolerant CPAP; has lost weight since dx Other and unspecified hyperlipidemia (Acute 04/19/12) Baseline 04/2005: TG 1175 ; PCEq risk 19% LDL baseline 161; high intensity statin & fibrate therapy 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 (Acute) Essential hypertension (Chronic 02/21/13) Gastroesophageal reflux disease (Chronic 04/19/12) Type 2 diabetes mellitus, with long-term current use of insulin (Acute ~1998) HbA1c goal </= 7-7.5%; dx'ed 24yo Benign neoplasm of colon, unspecified (Acute 02/24/11) tubular adenoma Hydronephrosis of left kidney (Acute) Ureterolithiasis (Acute) Lesion of lumbar spine (Acute) Non-pressure chronic ulcer of left ankle with fat layer exposed (Acute) Family history of colon cancer in mother (Chronic) Multiple thyroid nodules (Acute) ENT Erectile dysfunction (Acute) History of colon polyps (Acute) Chronic rhinitis (Chronic 09/01/12) Medical History Diverticulosis Fracture of pelvis (03/30/13) Surgical History Hx of cystoscopy H/O colonoscopy 08/21/20 with polypectomy Repair, Tendon or Muscle L ankle Family History (Updated 08/29/23 @ 08:58 by Gloria Valdes NP) Mother Colon cancer Father Essential hypertension Hyperlipidemia Brother Hyperlipidemia Multiple sclerosis Social History Smoking/Tobacco Use Status: Current-Occasional Tobacco Type: cigarettes Smoking packs per day: 1 Smoking cigarettes per day: 20.0 Second Hand Exposure: Yes Smoking risk assessment performed?: Yes Alcohol Intake: current Alcohol Intake frequency: a few times a month Drug use: Daily Substance use type: marijuana 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[employer]) Pets and animals: Yes Pets and animals: dog(s) Sexually active: Yes Current gender identity: male What is your relationship status?: Panel score (0-1 are the most socially isolated patients): 1 What type of physical activity do you participate in: none and other Details: Stays active with work, hunting, fishing, etc Duration: < 15 minutes/day Frequency: does not exercise Seatbelt use: never Drive intox or ride w/intox 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 Water heater temp set <120 deg: Yes Working smoke detector in home: Yes Fire extinguisher in home: Yes Carbon monox detector in home: Yes Do you feel safe at home: Yes Do you feel safe in your relationship?: Yes Additional Social history: UTAP Meds Allergies and Home Medications Allergies Allergy/AdvReac Type Severity Reaction Status Date / Time No Known Allergies Allergy Verified 03/08/24 06:24 Home Medications ?Medication ?Instructions ?Recorded ?Confirmed ?Type glucosamin 375 mg-chond 300 1 ea PO BID 04/19/12 03/06/24 History mg-collagen 50 mg-hyaluronic acid 2 mg cap multivitamin (Daily Vitamin tablet) 1 ea PO DAILY ##100 04/19/12 03/06/24 History omega-3 fatty acids-fish oil 340 1 ea PO DAILY 02/18/17 03/06/24 History mg-1,000 mg capsule (Fish Oil) blood sugar diagnostic (Blood #400 ea 09/10/19 02/27/24 Rx Glucose Test strips) pen needle, diabetic 31 gauge x ##400 09/07/21 02/27/24 Rx 5/16 (Pen Needle) insulin glargine 100 unit/mL (3 34 unit (0.34 mL) subcut HS Dx: 06/23/23 03/08/24 Rx mL) subcutaneous pen (Lantus E11.9 to maintain HbA1c less than Solostar U-100 Insulin) 7%. #31 mL omeprazole 20 mg capsule,delayed 20 mg PO DAILY #90 caps 08/29/23 03/08/24 Rx release sildenafil 100 mg tablet See Rx Instructions .Route 09/28/23 03/06/24 Rx .COMPLEX #20 tabs metformin 1,000 mg tablet See Rx Instructions .Route 11/09/23 03/08/24 Rx .COMPLEX #180 tabs atorvastatin 80 mg tablet See Rx Instructions .Route 12/07/23 03/08/24 Rx .COMPLEX #90 tabs fenofibrate nanocrystallized 145 See Rx Instructions .Route 01/10/24 03/08/24 Rx mg tablet .COMPLEX #90 tabs flash glucose sensor (FreeStyle #2 kits 02/20/24 02/27/24 Rx Shilpa 14 Day Sensor kit) tamsulosin 0.4 mg capsule (Flomax) 0.4 mg PO DAILY #7 caps 02/23/24 03/08/24 Rx diclofenac sodium 100 mg 100 mg PO BID PRN pain #20 tabs 02/24/24 03/06/24 Rx tablet,extended release 24 hr lisinopril 20 mg tablet 20 mg PO DAILY #90 tabs 02/27/24 03/08/24 Rx semaglutide 0.25 mg or 0.5 mg (2 0.5 mg (0.374 mL) subcut QWEEK 02/27/24 03/06/24 Rx mg/1.5 mL) subcutaneous pen #1.5 mL injector ketorolac 10 mg tablet 10 mg PO DIRECTED 03/01/24 03/06/24 History tramadol 50 mg tablet 50 mg PO Q6H PRN pain #12 tabs 03/01/24 03/08/24 Rx Exam Const General: cooperative and not in acute distress Neck Neck: supple Chest Chest: normal inspection of the chest Resp Auscultation: clear to auscultation bilaterally Cardio Rate: regular rate Rhythm: regular rhythm GI Palpation: soft and no masses Neuro General: patient alert, patient awake and patient oriented x3 Results Last Vital Signs Temp 36.6 C 03/08/24 06:29 Pulse 75 03/08/24 06:29 Resp 16 03/08/24 06:29 BP 136/90 03/08/24 06:29 Pulse Ox 99 03/08/24 06:29 Time Spent Time spent with Patient: <40 minutes Time was spent: other
--- NOTE | 2024-03-08 07:09 | DI.RAD_ITS ---
Exam(s) XR RETROGRADE IN OR EXAM: XR RETROGRADE IN OR CLINICAL HISTORY: Ureterolithiasis TECHNIQUE: 2D and realtime digital imaging was performed. CONTRAST MATERIAL: Refer to procedure report. COMPARISON: No exams were available for comparison FINDINGS: Fluoroscopy was provided for Dr. Sesay during the performance of a retrograde evaluation of the javi l collecting system. Please refer to the procedure report for complete details. Ka,r=10.2 mGy IMPRESSION: RADIATION DOSE DELIVERED: 0.0 0.0 0
--- NOTE | 2024-03-08 07:12 | W.ANESPRE ---
General Info Date of Service Date Performed: 03/08/24 Height: 6 ft 2 in Weight: 96.8 kg Body Mass Index (BMI): 27.3 Surgical Procedure: Operation Date: 03/08/24 07:40 Proposed Procedure Side Surgeon p Cystoscopy/Retrograde/Stent Removal Left Tao Sesay MD Meds Allergies and Home Medications Allergies Allergy/AdvReac Type Severity Reaction Status Date / Time No Known Allergies Allergy Verified 03/08/24 06:24 Home Medication ?Medication ?Instructions ?Recorded glucosamin 375 mg-chond 300 1 ea PO BID 04/19/12 mg-collagen 50 mg-hyaluronic acid 2 mg cap multivitamin (Daily Vitamin tablet) 1 ea PO DAILY ##100 04/19/12 omega-3 fatty acids-fish oil 340 1 ea PO DAILY 02/18/17 mg-1,000 mg capsule (Fish Oil) blood sugar diagnostic (Blood #400 ea 09/10/19 Glucose Test strips) pen needle, diabetic 31 gauge x ##400 09/07/21 5/ (Pen Needle) insulin glargine 100 unit/mL (3 34 unit (0.34 mL) subcut HS Dx: 06/23/23 mL) subcutaneous pen (Lantus E11.9 to maintain HbA1c less than Solostar U-100 Insulin) 7%. #31 mL omeprazole 20 mg capsule,delayed 20 mg PO DAILY #90 caps 08/29/23 release sildenafil 100 mg tablet See Rx Instructions .Route 09/28/23 .COMPLEX #20 tabs metformin 1,000 mg tablet See Rx Instructions .Route 11/09/23 .COMPLEX #180 tabs atorvastatin 80 mg tablet See Rx Instructions .Route 12/07/23 .COMPLEX #90 tabs fenofibrate nanocrystallized 145 See Rx Instructions .Route 01/10/24 mg tablet .COMPLEX #90 tabs flash glucose sensor (FreeStyle #2 kits 02/20/24 Shilpa 14 Day Sensor kit) tamsulosin 0.4 mg capsule (Flomax) 0.4 mg PO DAILY #7 caps 02/23/24 diclofenac sodium 100 mg 100 mg PO BID PRN pain #20 tabs 02/24/24 tablet,extended release 24 hr lisinopril 20 mg tablet 20 mg PO DAILY #90 tabs 02/27/24 semaglutide 0.25 mg or 0.5 mg (2 0.5 mg (0.374 mL) subcut QWEEK 02/27/24 mg/1.5 mL) subcutaneous pen #1.5 mL injector ketorolac 10 mg tablet 10 mg PO DIRECTED 03/01/24 tramadol 50 mg tablet 50 mg PO Q6H PRN pain #12 tabs 03/01/24 Current Visit Medications: Current Medications Generic Name Dose Route Start Last Admin Trade Name Jermaineq PRN Reason Stop Dose Admin Cefazolin Sodium/Dextrose 2 gm in 50 mls @ 100 mls/hr 03/08/24 06:00 Ancef Duplex IVPB 03/08/24 23:59 PREOP LISSA Ringer's Solution 1,000 mls @ 80 mls/hr 03/08/24 06:00 03/08/24 06:52 IV 04/07/24 05:59 80 mls/hr INFUSION LISSA Administration IV Miscellaneous Supplies 1 each 03/08/24 06:00 Iv Access IV 03/08/24 23:59 DIRECTED LISSA Sodium Chloride 0 ml 03/08/24 06:00 Normal Saline Flush 10 Ml Syr IV 03/08/24 23:59 PRN PRN Sodium Chloride 0 ml 03/08/24 06:00 Normal Saline 10 Ml Vial IJ 03/08/24 23:59 DIRECTED PRN Sterile Water 0 ml 03/08/24 06:00 Water,Injection,Sterile 10 Ml Vial IJ 03/08/24 23:59 DIRECTED PRN PFSH Active Problems Active Problems: Problem Status Onset Code Sleep apnea Acute 09/01/12 G47.30 Other and unspecified hyperlipidemia Acute 04/19/12 E78.5 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 Acute K22.70 Essential hypertension Chronic 02/21/13 I10 Gastroesophageal reflux disease Chronic 04/19/12 K21.9 Type 2 diabetes mellitus, with long-term current use of insulin Acute ~1998 E11.9, Z79.4 Benign neoplasm of colon, unspecified Acute 02/24/11 D12.6 Hydronephrosis of left kidney Acute N13.30 Ureterolithiasis Acute N20.1 Lesion of lumbar spine Acute M89.9 Non-pressure chronic ulcer of left ankle with fat layer exposed Acute L97.322 Family history of colon cancer in mother Chronic Z80.0 Multiple thyroid nodules Acute E04.2 Erectile dysfunction Acute N52.9 History of colon polyps Acute Z86.010 Chronic rhinitis Chronic 09/01/12 J31.0 Medical History Medical History Diverticulosis Fracture of pelvis (03/30/13) Surgical History Surgical History Hx of cystoscopy H/O colonoscopy 08/21/20 with polypectomy Repair, Tendon or Muscle L ankle Tobacco Smoking/Tobacco Use Status: Current-Occasional Tobacco Type: cigarettes Smoking packs per day: 1 Smoking cigarettes per day: 20.0 Passive smoking exposure: Yes Second hand exposure: Yes Alcohol Alcohol Intake: current Alcohol intake frequency: a few times a month Substance Use Substance use: Daily Substance use type: marijuana Vital Signs and Lab Results Vital Signs Most Recent Vital Signs in EMR: Most Recent Vital Signs Temp Pulse Resp BP Pulse Ox 36.6 C 75 16 136/90 99 03/08/24 06:29 03/08/24 06:29 03/08/24 06:29 03/08/24 06:29 03/08/24 06:29 Lab Results Blood Type / Crossmatch: No Data to Display Complete Blood Count: White Blood Count 8.40 10^3/uL (4.4-10.8) 02/15/24 02:45 Red Blood Count 4.92 10^6/uL (4.36-5.78) 02/15/24 02:45 Hemoglobin 13.7 g/dL (13.5-17.5) 02/15/24 02:45 Hematocrit 41.2 % (40.0-50.0) 02/15/24 02:45 Platelet Count 238 10^3/uL (130-400) 02/15/24 02:45 Complete Metabolic Panel: Sodium 142 mmol/L (136-145) 02/20/24 07:12 Potassium 3.9 mmol/L (3.5-5.1) 02/20/24 07:12 Chloride 105 mmol/L (98-107) 02/20/24 07:12 Carbon Dioxide 30.6 mmol/L (21.0-32.0) 02/20/24 07:12 BUN 15 mg/dL (7-18) 02/20/24 07:12 Creatinine 1.0 mg/dL (0.70-1.30) 02/20/24 07:12 Est GFR (CKD-EPI 2020) 88.33 (mL/min/1.73m2) 02/20/24 07:12 Calcium 9.4 mg/dL (8.5-10.1) 02/20/24 07:12 Glucose 140 mg/dL (74-106) H 02/20/24 07:12 Hemoglobin A1c 6.7 % (<5.7) H 02/20/24 07:12 Liver Function Panel: No Data to Display Coagulation Panel: No Data to Display Cardiac Panel: No Data to Display Arterial Blood Gas: No Data to Display Venous Blood Gas: No Data to Display Pancreas Panel: No Data to Display Thyroid Panel: No Data to Display Infectious Disease: No Data to Display Blood Cultures: No Data to Display Toxicology Panel: No Data to Display Anesthesia Assessment and Plan Anesthesia History Personal History: No History of Anesthesia Complications Family History: No Family History of Anesthesia Complications Exercise Tolerance Exercise Tolerance: Metabolic Equivalents>4 Pertinent Negatives Pertinent Negatives: No Symptoms of GERD (With meds) Cardiac & Pulmonary Exam Cardiac Exam: Normal S1/S2 Heart Sounds Pulmonary Exam: Clear Bilateral Breath Sounds Implantable Cardiac Device Does patient have a Pacemaker or an ICD?: No Airway Exam Known Difficult Airway: No Mallampati Class: 3 Mouth Opening: Normal (> 3cm) Thyromental Distance: Greater than 3 cm Neck Range of Motion: Full ROM Neck Circumference: Normal Teeth Condition: Normal Dentition ASA Classification ASA Score: ASA 2 Emergency Case?: No NPO Status NPO Status: NPO Clears >2 hours, Solids >8 hours Anesthesia Plan Resuscitation Status: Full Code Anesthesia Technique: General Anesthesia Airway Planned: LMA Monitors Used: Standard Monitors
[2024-03-08] MEDS: ceFAZolin 2 GM/50 ML BAG IVPB (07:40)
[2024-03-08] MEDS: Lidocaine 2% Jelly 11 ML SYR (07:56)
[2024-03-08] MEDS: Omnipaque 300 MG/ML 50 ML BTL (07:56)
--- NOTE | 2024-03-08 08:10 | W.PM.DSUDISC ---
Date of service: 03/08/24 Discharge Plan Disposition Patient Disposition: Home Condition: Stable Discharge Details Reason For Visit: cystoscopy and stent removal Attending Provider: Tao Sesay Primary Care Provider: Gloria Valdes Home Meds and New Rx's Prescriptions: New phenazopyridine [Pyridium] 200 mg tablet 200 mg PO TID PRNQty: 15 0RF No Action omeprazole 20 mg capsule,delayed release(DR/EC) 20 mg PO DAILY Qty: 90 3RF Rx Instructions: Take on an empty stomach at least 30 minutes before first meal. lisinopril 20 mg tablet 20 mg PO DAILY Qty: 90 3RF Rx Instructions: BP & DM semaglutide 0.25 mg or 0.5 mg(2 mg/1.5 mL) pen injector 0.5 mg subcut QWEEK Qty: 1.5 11RF Rx Instructions: Dose decrease 02/27/24 tamsulosin [Flomax] 0.4 mg capsule 0.4 mg PO DAILY Qty: 7 0RF diclofenac sodium 100 mg tablet extended release 24 hr 100 mg PO BID PRN (Reason: pain) Qty: 20 0RF tramadol 50 mg tablet 50 mg PO Q6H PRN (Reason: pain) Qty: 12 0RF Rx Instructions: may take along with NSAIDS/Tylenol multivitamin [Daily Vitamin] 1 EACH tablet 1 ea PO DAILY Qty: 100 ywkhyhje-jrrw-zzrwgm-hyalur ac 1 EACH capsule 1 ea PO BID Fish Oil 1 EACH capsule 1 ea PO DAILY (DME) Blood Glucose Test Strip See Rx Instructions .ROUTE .MEDSUPPLY Qty: 400 3RF Rx Instructions: As directed to check blood glucose four times daily. On insulin. Dispense covered brand. (DME) pen needle, diabetic [Pen Needle] 31 gauge x 06/29 needle 1 ea Miscellaneous QID Qty: 400 3RF Rx Instructions: 31G 06/29 Dx: E11.9 To maintain HbA1C less than 7% insulin glargine [Lantus Solostar U-100 Insulin] 100 unit/mL (3 mL) insulin pen 34 unit subcut HS Qty: 31 3RF sildenafil 100 mg tablet See Rx Instructions .ROUTE .COMPLEX Qty: 20 11RF Dose Instruction: TAKE ONE TABLET BY MOUTH 30 MIN TO 4 HOURS BEFORE ACTIVITY Rx Instructions: TAKE ONE TABLET BY MOUTH 30 MIN TO 4 HOURS BEFORE ACTIVITY metformin 1,000 mg tablet See Rx Instructions .ROUTE .COMPLEX Qty: 180 3RF Dose Instruction: TAKE ONE TABLET BY MOUTH TWICE A DAY FOR DIABETES Rx Instructions: TAKE ONE TABLET BY MOUTH TWICE A DAY FOR DIABETES atorvastatin 80 mg tablet See Rx Instructions .ROUTE .COMPLEX Qty: 90 3RF Dose Instruction: TAKE ONE TABLET BY MOUTH EVERY DAY Rx Instructions: TAKE ONE TABLET BY MOUTH EVERY DAY fenofibrate nanocrystallized 145 mg tablet See Rx Instructions .ROUTE .COMPLEX Qty: 90 3RF Dose Instruction: TAKE ONE TABLET BY MOUTH EVERY DAY Rx Instructions: TAKE ONE TABLET BY MOUTH EVERY DAY (DME) FreeStyle Shilpa 14 Day Sensor Kit See Rx Instructions .ROUTE .COMPLEX Qty: 2 6RF Dose Instruction: USE DIRECTED TO KEEP HBA1C LESS THAN 7% Rx Instructions: USE DIRECTED TO KEEP HBA1C LESS THAN 7% ketorolac 10 mg tablet 10 mg PO DIRECTED Patient Comments: TAKE ONE TABLET BY MOUTH THREE TIMES A DAY FOR 5 DAYS Discharge Instructions Additional Instructions: no need to strain urine followup 6 to 12 weeks for renal US (to be done in the office) may restart all home medications Activity:: Activity as Tolerated Shower/Bathe:: 24 hours Diet:: As Tolerated Discharge Orders Discharge Orders: Discharge Order (Routine); Ordered 03/08/24 Ordered By: Tao Sesay DS: Diagnosis Discharge Diagnosis (1) Ureterolithiasis: Status: Acute
--- NOTE | 2024-03-08 08:15 | W.PM.OP ---
Operative Note Operative Note PRE-OP DIAGNOSIS: left ureteral stone POST-OP DIAGNOSIS: same PROCEDURE: cystoscopy with left ureteral stent removal, left retrograde pyelogram, left flexible ureteroscopy SURGEON: Tao Sesay ANESTHESIA TYPE: Local By Surgeon and General LMA/ETT Refer to Anesthesia Record ESTIMATED BLOOD LOSS: 5 PATHOLOGY: none sent COMPLICATIONS: None Patient was transported to: PACU Patient's condition: stable Indications: This is a 58-year-old gentleman who was previously identified as having a large stone in the left renal pelvis. He was treated with ureteroscopy and holmium laser lithotripsy of his stone. About a month after his procedure, he developed left renal colic and was found to have a stone fragment in the middle left ureter. He underwent ureteroscopy with holmium laser lithotripsy and a stent was left in place. He presents now for stent removal and retrograde pyelogram to ensure there are no residual stone fragments Findings: No residual ureteral stone Small stone fragments in the left lower pole calyx Procedure Description: The patient was given IV antibiotics and brought to the operating room on 03/08/2024. After successful induction of general anesthesia, he was placed in the dorsal lithotomy position. His genitalia was prepped and draped. 2% Xylocaine jelly was instilled into the urethra to act as a local anesthetic. A 22 [place] rigid cystoscope was passed through the urethra into the bladder. The urethra and bladder were inspected with the 30 degree lens. The pendulous, bulbar and membranous urethra was all appeared normal with no strictures. The prostatic urethra showed some lateral lobe enlargement but no significant median lobe. No papillary mucosa was identified in the prostatic urethra. The bladder neck was entered and the bladder mucosa was inspected. A stent could be seen protruding from the left ureteral orifice. There was marked bullous edema surrounding the orifice in the region of the stent. The stent was grasped with alligator forceps and brought to the level of the urethral meatus. A guidewire was advanced through the lumen of the stent. The stent was removed leaving the wire in place. I then passed a ureteral access catheter over the wire and positioned the tip of the catheter in the mid ureter. We then performed a retrograde pyelogram by injecting Omnipaque through the access catheter under fluoroscopic guidance. On the injection films, there did appear to be a filling defect in the renal pelvis, but I did not see the filling defect remain on drainage films. I then elected to pass the flexible ureteroscope up to ensure there was no residual stone fragment. I reintroduced the guidewire through the lumen of the access catheter and removed the catheter. I then passed a dual-lumen catheter over the wire and positioned a second wire. We chose one of the wires as a working wire and the other as a safety wire. I passed the ureteral access sheath over the working wire and positioned the sheath with the proximal and in the mid ureter. We left the safety wire in place. I passed the flexible ureteroscope through the lumen of the access sheath up the ureter and into the kidney. There was some erythema and edema at the previous level of the ureteral stone but I saw no residual stone fragments. I passed the scope up into the renal pelvis and saw no stone fragments in the renal pelvis. I then inspected each of the calyces. There were a few very small stone fragments in the lower pole calyx but no additional stones visualized. I then removed the ureteroscope and inspected the ureter while withdrawing the scope. Again, no filling defects or stones were identified. The scope and access sheath were removed. The safety wire was then removed. The patient tolerated the procedure well with no complications. Date of Procedure: 03/08/24
[2024-03-08] MEDS: Phenazopyridine 200 MG TAB PO (09:05)
--- NOTE | 2024-03-08 09:24 | W.ANESPOSTOP ---
Postoperative Evaluation Date, Time and Location Date Performed: 03/08/24 Time Performed: 09:24 Patient Location: Day Surgery Unit Vital Signs Most Recent Imported Vital Signs: Most Recent Vital Signs Temp Pulse Resp BP Pulse Ox 36.0 C L 68 16 116/81 96 03/08/24 08:52 03/08/24 08:52 03/08/24 08:52 03/08/24 08:52 03/08/24 08:52 Pain Score Most Recent Pain Score: Most Recent Pain Score Pain Level 0 03/08/24 08:52 Assessment Mental Status: Awake (Alert & Oriented to Patient Baseline) Airway and Respiratory Function: Patent airway with normal (patient baseline) respiratory exam Cardiovascular Function: Hemodynamically Stable Hydration Status: Adequately Hydrated Nausea & Vomiting: No Nausea or Vomiting Pain: Pt. Denies Any Pain Peripheral Nerve Block: Patient did not receive a nerve block
== END 2024-03-08 09:36 | disposition home or self-care (01) ==
PROVIDERS: PCP Nurse Practitioner Adult Health; Visit Provider Urology
PROC: (CPT 74450; principal; 2024-03-08 07:30)
DX: N20.1 Calculus of ureter (principal); I10 Essential (primary) hypertension; E11.9 Type 2 diabetes mellitus without complications; Z79.4 Long term (current) use of insulin
CPT/HCPCS: 52310; 74420; J0131; J0690; J1100; J1885; J2405; J2704; Q9967

== ENCOUNTER 2024-07-12 02:39 | Outpatient (CLI) | payer MEDICAID, SELFPAY ==
--- NOTE | 2024-07-12 07:15 | DI.US_ITS ---
Exam(s) US THYROID EXAM: US THYROID CLINICAL HISTORY: Assess for stability,multiple thyroid nodules,e04.2. TECHNIQUE: Ultrasound thyroid performed using standard protocol. COMPARISON: US US THYROID from 07/07/2023 US POCUS EXAM from 04/20/2024 FINDINGS: Bilateral nodules are again noted. This patient apparently underwent FNA of 2 right thyroid lobe nod ules on 07/27/2022, apparently negative for malignancy. RIGHT THYROID LOBE: Measures 3.4 cm AP x 0.7 cm wide x 6.4 cm craniocaudal The larger of the 2 solid nodules in the right lobe be discussed 1st. This nodule presently measures 3.8 x 2.6 x 3.8 cm, similar to previous Grading of this nodule is as follows: Composition: Solid-2 points Echogenicity: Isoechoic to surrounding parenchyma-1 point Shape: Wider than taller-0 points Margin: Smooth- 0 points Echogenic Foci: Contains punctate echogenic foci as well as a macro calcification-4 points Total Points for this nodule: 7 ACR Ti-Rads Category: TR5 This TR 5 level nodule qualifies for biopsy as it measures greater than 1 cm. Nodule #2. This is the smaller of the 2 solid right lobe nodules. It presently measures 1.1 x 0.7 x 0.9 cm, also not increased in size. Grading of this nodule is as follows: Composition: Predominately solid-2 points Echogenicity: Hypoechoic- 2 points Shape: Wider than taller- 0 points Margin: Smooth-0 points Echogenic Foci: Contains punctate echogenic foci-3 points Total points for this nodule: 7 ACR Ti-Rads Category: TR5 This TR 5 level nodule qualifies for ultrasound-guided FNA as it measures slightly greater than 1 cm ISTHMUS: Normal thickness. There are no nodules in the isthmus. LEFT THYROID LOBE: Measures 2.3 cm AP x 2.3 wide x 5.9 cm craniocaudal There is a tiny colloid cyst in the superior aspect of the left lobe. A solid nodule again noted at mid level which measures 1.3 x 0.9 x 1.2 cm. Characteristics of this nodule are as follows Composition: Solid-2 points Echogenicity: Hypoechoic-2 points Shape: Wider than taller-0 points Margin: Smooth-0 points Echogenic Foci: None-0 points Total points for this nodule: 4 ACR Ti-Rads Category: 4 This TR 4 level nodule does not require biopsy at this time as it measures less than 1.5 cm. LYMPH NODES: There is no significant adenopathy. IMPRESSION: 1. The 2 solid nodules in the right lobe which were previously biopsied remain stable in size. They are both TR 5 level nodules 2. The nodule in the left lobe is a TR 4 level nodule which does not require biopsy as it measures le ss than 1.5 cm. 3. There is no significant lymphadenopathy. DATA REPOSITORY:
== END 2024-07-12 02:59 ==
LOC: DI 02:39
PROVIDERS: PCP Nurse Practitioner Adult Health; Visit Provider Otolaryngology
DX: E04.2 Nontoxic multinodular goiter (principal)
CPT/HCPCS: 76536

== ENCOUNTER 2024-07-16 03:02 | Emergency (ER) | payer MEDICAID, SELFPAY ==
[2024-07-16 03:04] VITALS: BP 152/95; PULSE 80; RESP 16; TEMP 36.9; O2SAT 98
--- NOTE | 2024-07-16 03:15 | DI.CT_ITS ---
Exam(s) CT ABDOMEN PELVIS WO EXAM: CT ABDOMEN PELVIS WO CLINICAL HISTORY: left flank pain, eval for stone. TECHNIQUE: Imaging Protocol: Axial computed tomography images with coronal and sagittal reformatted images were created and reviewed. COMPARISON: CT CT ABDOMEN PELVIS WO from 01/02/[address] RENAL COLIC WO from 02/15/2024 FINDINGS: The examination is limited due to patient motion artifact. ABDOMEN: Lung Bases: Normal where visualized. Liver: Normal density. No measurable mass. Gallbladder and biliary tract: No radiodense calculus or biliary ductal dilation. Pancreas: Normal density, no abnormal calcifications or inflammatory process. Spleen: Normal. Kidneys: Normal size, contour and axis.There is left nephrolithiasis. There is a cluster of stones s een in the lower pole of the left kidney. There is left ureterolithiasis. There are 2 adjacent ston es seen in the mid left ureter. The larger measures 3 mm. There is resultant moderate hydronephrosi s. Perinephric stranding is seen around the left kidney likely reflecting obstruction. There is no right nephrolithiasis or hydronephrosis. Adrenal glands: No mass is seen. Lymph nodes: Within normal limits. Abdominal Aorta: Abdominal portion non-dilated. Atherosclerotic calcification is present. PELVIS: Bladder:The urinary bladder is incompletely distended but grossly unremarkable. Bowel: No obstruction or bowel wall thickening. Appendix is unremarkable. Peritoneal cavity: No ascites, collection or mesenteric inflammatory response. No free air. Reproductive organs: The prostate gland is enlarged. Bones: Within normal limits. Stable cysts are seen in the L1 and L3 vertebral bodies. Age-appropriat e degenerative changes are present in the spine. Soft Tissues: Small bilateral fat containing inguinal hernias are present. IMPRESSION: 1. Two adjacent stones are seen in the left mid ureter causing moderate hydronephrosis. The larger s tone measures 3 mm. 2. Left nephrolithiasis. 3. The preliminary [facility] report was reviewed. RADIATION DOSE DELIVERED: 756.7mGy.cm Total DLP DATA REPOSITORY: All CT scans at this facility are submitted to the National Radiology Data Registry (NRDR) Dose Index Registry (DIR) with the [employer] (A[employer]). RADIATION OPTIMIZATION: All CT scans at this facility use at least one of these dose optimization te chniques: automated exposure control; mA and/or kV adjustment per patient size (includes targeted exa ms where dose is matched to clinical indication); or iterative reconstruction.
--- NOTE | 2024-07-16 03:35 | W.ED.GENAD ---
Discharge Plan Disposition Patient Disposition: Home Condition: Good Discharge Details Clinical Impression: Kidney stone on left side Primary Care Provider: Gloria Valdes ED Provider: Dennys Scott Home Meds and New Rx's Prescriptions: New ketorolac 10 mg tablet 10 mg PO TID 5 Days Qty: 15 0RF tamsulosin [Flomax] 0.4 mg capsule 0.4 mg PO DAILY Qty: 10 0RF No Action omeprazole 20 mg capsule,delayed release(DR/EC) 20 mg PO DAILY Qty: 90 3RF Rx Instructions: Take on an empty stomach at least 30 minutes before first meal. lisinopril 20 mg tablet 20 mg PO DAILY Qty: 90 3RF Rx Instructions: BP & DM semaglutide 0.25 mg or 0.5 mg(2 mg/1.5 mL) pen injector 0.5 mg subcut QWEEK Qty: 1.5 11RF Rx Instructions: Dose decrease 02/27/24 multivitamin [Daily Vitamin] 1 EACH tablet 1 ea PO DAILY Qty: 100 bwrgzrgl-enpv-tkmlzs-hyalur ac 1 EACH capsule 1 ea PO BID Fish Oil 1 EACH capsule 1 ea PO DAILY (DME) Blood Glucose Test Strip See Rx Instructions .ROUTE .MEDSUPPLY Qty: 400 3RF Rx Instructions: As directed to check blood glucose four times daily. On insulin. Dispense covered brand. (DME) pen needle, diabetic [Pen Needle] 31 gauge x 16 needle 1 ea Miscellaneous QID Qty: 400 3RF Rx Instructions: 31G 16 Dx: E11.9 To maintain HbA1C less than 7% metformin 1,000 mg tablet See Rx Instructions .ROUTE .COMPLEX Qty: 180 3RF Dose Instruction: TAKE ONE TABLET BY MOUTH TWICE A DAY FOR DIABETES Rx Instructions: TAKE ONE TABLET BY MOUTH TWICE A DAY FOR DIABETES atorvastatin 80 mg tablet See Rx Instructions .ROUTE .COMPLEX Qty: 90 3RF Dose Instruction: TAKE ONE TABLET BY MOUTH EVERY DAY Rx Instructions: TAKE ONE TABLET BY MOUTH EVERY DAY fenofibrate nanocrystallized 145 mg tablet See Rx Instructions .ROUTE .COMPLEX Qty: 90 3RF Dose Instruction: TAKE ONE TABLET BY MOUTH EVERY DAY Rx Instructions: TAKE ONE TABLET BY MOUTH EVERY DAY (DME) FreeStyle Shilpa 14 Day Sensor Kit See Rx Instructions .ROUTE .COMPLEX Qty: 2 6RF Dose Instruction: USE DIRECTED TO KEEP HBA1C LESS THAN 7% Rx Instructions: USE DIRECTED TO KEEP HBA1C LESS THAN 7% insulin glargine [Lantus Solostar U-100 Insulin] 100 unit/mL (3 mL) insulin pen See Rx Instructions .ROUTE .COMPLEX Qty: 30 3RF Dose Instruction: INJECT 34 UNITS UNDER THE SKIN AT BEDTIME Rx Instructions: INJECT 34 UNITS UNDER THE SKIN AT BEDTIME insulin aspart U-100 [Novolog FlexPen U-100 Insulin] 100 unit/mL (3 mL) insulin pen See Rx Instructions .ROUTE .COMPLEX Qty: 30 3RF Dose Instruction: INJECT 10-30 UNITS UNDER THE SKIN BEFORE MEALS PER SLIDING SCALE Rx Instructions: INJECT 2-20 UNITS UNDER THE SKIN BEFORE MEALS PER SLIDING SCALE sildenafil 100 mg tablet See Rx Instructions .ROUTE .COMPLEX Qty: 50 0RF Dose Instruction: TAKE ONE TABLET BY MOUTH APPROXIMATELY 30 MINUTES TO 4 HOURS BEFORE SEXUAL ACTIVITY, DO NOT USE MORE THAN ONE DOSE DAILY Rx Instructions: TAKE ONE TABLET BY MOUTH APPROXIMATELY 30 MINUTES TO 4 HOURS BEFORE SEXUAL ACTIVITY, DO NOT USE MORE THAN ONE DOSE DAILY Discharge Instructions Instructions: Kidney Stone, Adult ED Additional Instructions: At this time you have evidence of a small kidney stone. This is likely the cause of your symptoms. This should pass within the next 12 to 48 hours, if not earlier. Please drink plenty of fluids, 10 to 12 cups/day at least. Please add a small amount of lemon juice to every cup of water. Please take 10mg of Ketorolac every 8 hours and 1000 mg of Tylenol every 6 hours as needed for pain. These are the maximum doses of these medicines. Please take the Flomax as directed. This will help in expediting the passage of your kidney stone. If your pain stops, you can stop taking the Flomax. Please strain your urine to collect the stone. This can then be analyzed by your family doctor. If you do not have resolution of your symptoms after 48 to 72 hours please follow-up closely with your family doctor or return here for reassessment. If you notice any worsening of your symptoms, or any new symptoms such as inability to urinate, vomiting, diarrhea, fever, chills, shortness of breath, chest pain, numbness, weakness, or fainting , please return immediately to the emergency department for reevaluation. Please follow up with your primary care provider as soon as possible for reassessment and reevaluation. As always, it was a pleasure participating in your medical care today. Referrals: Tao Sesay MD [ [facility] STAFF PHYSICIAN] - Gloria Valdes NP [Primary Care Provider] - GIRMA General Date/Time Provider Initiated Documentation: 07/16/24 03:07. HPI Narrative: This is a pleasant 58-year-old male with a past medical history of kidney stones, type 2 diabetes, hypertension, GERD, high cholesterol, who has required stenting and lithotripsy for his previous kidney stones who presents today for left flank pain. Symptoms began 12 hours ago, he took Flexeril and NSAIDs with only slight improvement of his symptoms. Pain radiates from the left flank to the groin. He denies fever or chills. No vomiting. No chest pain or shortness of breath. No xiang hematuria. No other complaints at this time. Patient states his symptoms feel identical to previous kidney stones. Related Data Home Medications ?Medication ?Instructions ?Recorded ?Confirmed glucosamin 375 mg-chond 300 1 ea PO BID 04/19/12 07/16/24 mg-collagen 50 mg-hyaluronic acid 2 mg cap multivitamin (Daily Vitamin tablet) 1 ea PO DAILY ##100 04/19/12 07/16/24 omega-3 fatty acids-fish oil 340 1 ea PO DAILY 02/18/17 07/16/24 mg-1,000 mg capsule (Fish Oil) blood sugar diagnostic (Blood #400 ea 09/10/19 07/16/24 Glucose Test strips) pen needle, diabetic 31 gauge x ##400 09/07/21 07/16/24/16 (Pen Needle) omeprazole 20 mg capsule,delayed 20 mg PO DAILY #90 caps 08/29/23 07/16/24 release metformin 1,000 mg tablet See Rx Instructions .Route 11/09/23 07/16/24 .COMPLEX #180 tabs atorvastatin 80 mg tablet See Rx Instructions .Route 12/07/23 07/16/24 .COMPLEX #90 tabs fenofibrate nanocrystallized 145 See Rx Instructions .Route 01/10/24 07/16/24 mg tablet .COMPLEX #90 tabs flash glucose sensor (FreeStyle #2 kits 02/20/24 07/16/24 Shilpa 14 Day Sensor kit) lisinopril 20 mg tablet 20 mg PO DAILY #90 tabs 02/27/24 07/16/24 semaglutide 0.25 mg or 0.5 mg (2 0.5 mg (0.374 mL) subcut QWEEK 02/27/24 07/16/24 mg/1.5 mL) subcutaneous pen #1.5 mL injector insulin glargine 100 unit/mL (3 See Rx Instructions .Route 04/22/24 07/16/24 mL) subcutaneous pen (Lantus .COMPLEX #30 mL Solostar U-100 Insulin) insulin aspart U-100 100 unit/mL See Rx Instructions .Route 05/27/24 07/16/24 (3 mL) subcutaneous pen (Novolog .COMPLEX #30 mL FlexPen U-100 Insulin aspart) sildenafil 100 mg tablet See Rx Instructions .Route 06/22/24 07/16/24 .COMPLEX #50 tabs ketorolac 10 mg tablet 10 mg PO TID 5 days #15 tabs 07/16/24 tamsulosin 0.4 mg capsule (Flomax) 0.4 mg PO DAILY #10 caps 07/16/24 Previous Rx's ?Medication ?Instructions ?Recorded blood sugar diagnostic (Blood #400 ea 09/10/19 Glucose Test strips) pen needle, diabetic 31 gauge x ##400 09/07/21/ (Pen Needle) omeprazole 20 mg capsule,delayed 20 mg PO DAILY #90 caps 08/29/23 release metformin 1,000 mg tablet See Rx Instructions .Route 11/09/23 .COMPLEX #180 tabs atorvastatin 80 mg tablet See Rx Instructions .Route 12/07/23 .COMPLEX #90 tabs fenofibrate nanocrystallized 145 See Rx Instructions .Route 01/10/24 mg tablet .COMPLEX #90 tabs flash glucose sensor (FreeStyle #2 kits 02/20/24 Shilpa 14 Day Sensor kit) lisinopril 20 mg tablet 20 mg PO DAILY #90 tabs 02/27/24 semaglutide 0.25 mg or 0.5 mg (2 0.5 mg (0.374 mL) subcut QWEEK 02/27/24 mg/1.5 mL) subcutaneous pen #1.5 mL injector insulin glargine 100 unit/mL (3 See Rx Instructions .Route 04/22/24 mL) subcutaneous pen (Lantus .COMPLEX #30 mL Solostar U-100 Insulin) insulin aspart U-100 100 unit/mL See Rx Instructions .Route 05/27/24 (3 mL) subcutaneous pen (Novolog .COMPLEX #30 mL FlexPen U-100 Insulin aspart) sildenafil 100 mg tablet See Rx Instructions .Route 06/22/24 .COMPLEX #50 tabs ketorolac 10 mg tablet 10 mg PO TID 5 days #15 tabs 07/16/24 tamsulosin 0.4 mg capsule (Flomax) 0.4 mg PO DAILY #10 caps 07/16/24 Allergies Allergy/AdvReac Type Severity Reaction Status Date / Time No Known Allergies Allergy Verified 07/16/24 03:09 General Stated Complaint: FlankPain MARIETTA: 3 Exam Narrative Exam Narrative: 1.Const: Well-nourished, Well-developed, appearing stated age 2.Eyes: PERRL, no conjunctival injection, and symmetrical lids. 3.ENT: Atraumatic external nose and ears. Moist MM. Neck: Symmetric, trachea midline, No thyromegaly. 4.CVS: +S1/S2, Peripheral pulses 2+ and equal in all extremities. Brisk capillary refill in all extremities. 5.RESP: Unlabored respiratory effort. Clear to auscultation bilaterally. No wheezes rales or rhonchi 6.GI: Soft, Nontender/Nondistended, No hepatosplenomegaly. No guarding or rebound. Mild left CVA tenderness 7.MSK: Normocephalic/Atraumatic, Extremities w/o deformity or ttp No cyanosis or clubbing, Normal movement of all extremities 8.Skin: Warm, Dry. No rashes or lesions. 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 Sensation grossly intact, no focal neurologic deficits. 10.Psych: (AAO) x3. Appropriate mood and affect Course Vital Signs Vital signs: Vital Signs Temperature 36.9 C 07/16/24 03:04 Pulse 80 07/16/24 03:04 Respiratory Rate 16 07/16/24 03:04 Blood Pressure 152/95 H 07/16/24 03:04 Pulse Oximetry 98 07/16/24 03:04 Temperature 36.9 C 07/16/24 03:04 Temperature Source Oral 07/16/24 03:04 Pulse 80 07/16/24 03:04 Respiratory Rate 16 07/16/24 03:04 Blood Pressure 152/95 H 07/16/24 03:04 Blood Pressure Position Sitting 07/16/24 03:04 Pulse Oximetry 98 07/16/24 03:04 Oxygen Delivery Method Room Air 07/16/24 03:04 Oxygen Flow Rate 0 07/16/24 03:04 Pain Level 8 07/16/24 03:12 Medical Decision Making This is a pleasant 58-year-old male with a past medical history of kidney stones, type 2 diabetes, hypertension, GERD, high cholesterol, who has required stenting and lithotripsy for his previous kidney stones who presents today for left flank pain. Symptoms began 12 hours ago, he took Flexeril and NSAIDs with only slight improvement of his symptoms. Pain radiates from the left flank to the groin. He denies fever or chills. No vomiting. No chest pain or shortness of breath. No xiang hematuria. No other complaints at this time. Patient states his symptoms feel identical to previous kidney stones. Exam demonstrates mild left CVA tenderness, no abdominal tenderness otherwise. Vital signs stable. Symptoms are concerning for kidney stone. No fever to suggest Faustino. No left-sided abdominal pain on palpation to suggest diverticulitis or appendicitis. Will get CT imaging to evaluate for stone size location, give Flexeril, Toradol, Ofirmev and fluids. Will monitor closely and reassess. 5 AM Laboratory workup shows no evidence of bandemia. Electrolytes normal. Creatinine 1.2, GFR 70%. Urinalysis shows blood but no evidence of WBCs, leuk esterase or nitrites. No evidence to suggest infection. On reassessment pain is notably improved and patient feels significantly better. CT imaging shows left ureteral calculi measuring 4 x 3 mm. With the patient's pain well-controlled, renal function showing no signs of failure at this time, no infection on the urine, and the patient able to tolerate p.o. I do feel that discharge with close urology follow-up is reasonable. We will place referral to Dr. Sesay, give Toradol and Flomax for home use. Patient feels comfortable with plan. Discussed red flags for which to return, discussed the potential need for stenting if the patient does not pass the stone in the next few days. I have extensively reviewed the treatment plan and discharge instructions with the patient and their family. I have addressed all patient concerns at this time. The patient and family was made aware of what symptoms to monitor for that would warrant a return to the emergency department. Discussed the plan with the patient and family, they demonstrate verbal understanding and agreement with our assessment and plan at this time. The documentation in this chart was dictated using Emotient dictation software. Please excuse any dictation errors. FINDINGS: Limitations: Mild motion artifact. No contrast was administered, limiting evaluation for some pathologies. Liver: No focal hepatic lesion identified, within the limitations of a noncontrast examination. Gallbladder and biliary ducts: No radiodense gallbladder calculi seen. Pancreas: No CT evidence for acute pancreatitis. Spleen: No splenomegaly. Adrenal glands: Nodular adrenal thickening. Kidneys and ureters: Multiple left renal calculi. Left hydroureteronephrosis with perinephric and periureteral stranding. Calculi in the mid left ureter measuring 4 and 3 mm respectively. Stomach and bowel: No intestinal obstruction is evident. Fluid in nondilated small bowel, nonspecific. Areas of apparent mural thickening in the colon commensurate with underdistention. Retained fecal material is present in the colon. Appendix: No evidence of appendicitis. Intraperitoneal space: No free air. Vasculature: Arterial calcifications. Lymph nodes: Nonspecific mesenteric and retroperitoneal lymph nodes. Bilateral inguinal lymph nodes. Urinary bladder: No bladder calculi seen. The urinary bladder appears mildly thickened but is incompletely distended. Reproductive: Enlarged prostate. Bones/joints: Hemangioma at L3. Soft tissues: Bilateral fat containing inguinal hernias. IMPRESSION: 1. Left ureteral calculi with hydronephrosis. 2. Additional findings as above. Thank you for allowing us to participate in the care of your patient. Dictated and Authenticated by: Adrienne Myers MD 07/16/2024 4:44 AM Eastern Time ([place] & [place]) Quality:SDOH Health Related Social Needs: No Data to Display PFSH All Active Problems (Updated 07/16/24 @ 05:01 by Dennys Scott DO) Kidney stone on left side (Acute) Sleep apnea (Acute 09/01/12) intolerant CPAP; has lost weight since dx Other and unspecified hyperlipidemia (Acute 04/19/12) Baseline 04/2005: TG 1175 ; PCEq risk 19% LDL baseline 161; high intensity statin & fibrate therapy 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 (Acute) Essential hypertension (Chronic 02/21/13) Gastroesophageal reflux disease (Chronic 04/19/12) Type 2 diabetes mellitus, with long-term current use of insulin (Acute ~1998) HbA1c goal </= 7-7.5%; dx'ed 24yo Benign neoplasm of colon, unspecified (Acute 02/24/11) tubular adenoma Hydronephrosis of left kidney (Acute) Ureterolithiasis (Acute) Lesion of lumbar spine (Acute) Non-pressure chronic ulcer of left ankle with fat layer exposed (Acute) Family history of colon cancer in mother (Chronic) Multiple thyroid nodules (Acute) ENT Erectile dysfunction (Acute) History of colon polyps (Acute) Chronic rhinitis (Chronic 09/01/12) Medical History Diverticulosis Fracture of pelvis (03/30/13) Surgical History Hx of cystoscopy H/O colonoscopy 08/21/20 with polypectomy Repair, Tendon or Muscle L ankle Family History Mother Colon cancer Father Essential hypertension Hyperlipidemia Brother Hyperlipidemia Multiple sclerosis Social History Smoking/Tobacco Use Status: Current-Occasional Tobacco Type: cigarettes Smoking packs per day: 1 Smoking cigarettes per day: 20.0 Second Hand Exposure: Yes Smoking risk assessment performed?: Yes Alcohol Intake: current Alcohol Intake frequency: a few times a month Drug use: Daily Substance use type: marijuana 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[employer]) Pets and animals: Yes Pets and animals: dog(s) Sexually active: Yes Current gender identity: male What is your relationship status?: Panel score (0-1 are the most socially isolated patients): 1 What type of physical activity do you participate in: none and other Details: Stays active with work, hunting, fishing, etc Duration: < 15 minutes/day Frequency: does not exercise Seatbelt use: never Drive intox or ride w/intox stage driver: No Water heater temp set <120 deg: Yes Working smoke detector in home: Yes Fire extinguisher in home: Yes Carbon monox detector in home: Yes Do you feel safe at home: Yes Do you feel safe in your relationship?: Yes Additional Social history: MARK
[2024-07-16] MEDS: ACETAMINOPHEN 1,000 MG/100 ML BAG 400 MG (03:40)
[2024-07-16] MEDS: MORPHine 4 MG/ML SYR IVP (03:41)
[2024-07-16] MEDS: Ketorolac 30 MG/ML VIAL IVP (03:42)
[2024-07-16] MEDS: Ondansetron 4 MG/2 ML VIAL IVP (03:42)
[2024-07-16] MEDS: Lactated Ringers 1,000 ML 1000 ML IV (03:42)
[2024-07-16] MEDS: Tamsulosin 0.4 MG CAPCR 0.8 MG PO (03:45)
[2024-07-16 03:52] LABS: Abs Immature Grans 0.04 10^3/uL (0.0-0.06); Absolute Basophil Count 0.03 10^3/uL (0.0-0.2); Absolute Lymphocyte Count 1.53 10^3/uL (1.2-3.4); Absolute Monocyte Count 1.21 10^3/uL (0.1-0.8); Basophils % 0.3 %; Eosinophils % 1.3 %; HCT 39.5 % (40.0-50.0); HGB 12.9 g/dL (13.5-17.5); Immature Grans % 0.4 %; Lymphocytes % 13.7 %; MCH 27.4 pg (27.0-33.0); MCHC 32.7 % (32.0-36.0); MCV 84 fL (80-95); MPV 10.9 fL (8.0-11.0); Monocytes % 10.8 %; Neutrophils % 73.5 %; Platelet Count 223 10^3/uL (130-400); RDW 13.3 % (11.8-14.1); RDW-SD 41.1 fL
[2024-07-16 04:01] LABS: Absolute Eosinophil Count 0.15 10^3/uL (0.0-0.7); Absolute Neutrophil Count 8.23 10^3/uL (1.2-6.7)
[2024-07-16 04:04] LABS: Bilirubin Negative (Negative); Blood Trace-lysed (Negative); Clarity Clear (Clear); Glucose 100 mg/dL (Negative); Ketones Trace mg/dL (Negative); Leukocyte Esterase Negative (Negative); Nitrite Negative (Negative)
[2024-07-16 04:19] LABS: Bacteria Rare HPF (Negative); C & S Indicated? No; Casts Negative LPF (Negative); Crystals Negative HPF (Negative); Epithelial Cells Negative HPF (Negative); Mucus Trace (Negative); WBC 0-2 HPF (0-5)
[2024-07-16 04:37] LABS: ALT 20 U/L (16-63); AST 18 U/L (15-37); Albumin 3.9 g/dL (3.4-5.0); Alkaline Phosphatase 102 U/L (46-116); Anion Gap 9.9 mmol/L (3-11); BUN 18 mg/dL (7-18); Bilirubin, Total 0.3 mg/dL (0.2-1.0); CO2 27.1 mmol/L (21.0-32.0); CREATININE 1.2 mg/dL (0.70-1.30); Calcium 9.4 mg/dL (8.5-10.1); Chloride 105 mmol/L (98-107); Estimated GFR 70.98 (mL/min/1.73m2); Glucose 111 mg/dL (74-106); Potassium 3.9 mmol/L (3.5-5.1); Sodium 142 mmol/L (136-145); Total Protein 7.3 g/dL (6.4-8.2)
--- NOTE | 2024-07-16 04:44 | DI.[facility]_ITS ---
PROCEDURE INFORMATION: Exam: CT Abdomen And Pelvis Without Contrast Exam date and time: 07/16/2024 3:47 AM Age: 58 years old Clinical indication: Prior surgery; Surgery date: 1-6 months; Surgery type: Kidney stone removal; L flank pain, eval for stone TECHNIQUE: Imaging protocol: Computed tomography of the abdomen and pelvis without contrast. Radiation optimization: All CT scans at this facility use at least one of these dose optimization techniques: automated exposure control; mA and/or kV adjustment per patient size (includes targeted exams where dose is matched to clinical indication); or iterative reconstruction. COMPARISON: CT RENAL COLIC WO 02/15/2024 2:54 AM FINDINGS: Limitations: Mild motion artifact. No contrast was administered, limiting evaluation for some pathologies. Liver: No focal hepatic lesion identified, within the limitations of a noncontrast examination. Gallbladder and biliary ducts: No radiodense gallbladder calculi seen. Pancreas: No CT evidence for acute pancreatitis. Spleen: No splenomegaly. Adrenal glands: Nodular adrenal thickening. Kidneys and ureters: Multiple left renal calculi. Left hydroureteronephrosis with perinephric and periureteral stranding. Calculi in the mid left ureter measuring 4 and 3 mm respectively. Stomach and bowel: No intestinal obstruction is evident. Fluid in nondilated small bowel, nonspecific. Areas of apparent mural thickening in the colon commensurate with underdistention. Retained fecal material is present in the colon. Appendix: No evidence of appendicitis. Intraperitoneal space: No free air. Vasculature: Arterial calcifications. Lymph nodes: Nonspecific mesenteric and retroperitoneal lymph nodes. Bilateral inguinal lymph nodes. Urinary bladder: No bladder calculi seen. The urinary bladder appears mildly thickened but is incompletely distended. Reproductive: Enlarged prostate. Bones/joints: Hemangioma at L3. Soft tissues: Bilateral fat containing inguinal hernias. IMPRESSION: 1. Left ureteral calculi with hydronephrosis. 2. Additional findings as above. Dictated and Authenticated by: Adrienne Myers MD. Orderin Sonia Noyola MD
[2024-07-16 05:13] VITALS: BP 135/76; PULSE 78; RESP 16; O2SAT 96
== END 2024-07-16 05:15 | disposition home or self-care (01) ==
PROVIDERS: Emergency Provider Student in an Organized Health Care Education/Training Program; PCP Nurse Practitioner Adult Health
DX: N20.0 Calculus of kidney (principal); R10.32 Left lower quadrant pain
CPT/HCPCS: 99284 ×2; 96374; 96375; 96372; 36415; 80053; 96361; 74176; 81003; 81015; 85025; J0131; J1885; J2270; J2405

== ENCOUNTER 2024-09-07 15:44 | Emergency (ER) | payer MEDICAID, SELFPAY ==
[2024-09-07 15:47] VITALS: BP 145/91; PULSE 103; RESP 12; TEMP 36.7; O2SAT 96
--- NOTE | 2024-09-07 16:00 | DI.RAD_ITS ---
Exam(s) XR FOOT LT COMPLETE EXAM: XR FOOT LT COMPLETE CLINICAL HISTORY: left foot pain, dorsum. TECHNIQUE: 2D digital imaging was performed of the left foot. Three images were obtained. AP, oblique and lateral views were obtained. COMPARISON: CR,XR XR ANKLE LT COMPLETE from 09/10/2023 FINDINGS: BONES: No acute fracture is present. No bony destructive lesion is seen. JOINTS: No dislocation present. There are minimal degenerative changes present. SOFT TISSUE: There is soft tissue swelling on the dorsum of the foot. Vascular calcifications are present. There is a 6 mm linear foreign body in the web space between the 1st and 2nd proximal phalanges. IMPRESSION: 1. Soft tissue swelling along the dorsum of the foot. No soft tissue gas is seen. 2. 6 mm long foreign body in the soft tissues between the 1st and 2nd toes. 3. There is no acute fracture or dislocation. DATA REPOSITORY: RADIATION DOSE DELIVERED:
[2024-09-07] MEDS: oxyCODONE 5 mg/Acetaminophen 325 mg TAB 1 TAB PO (16:24)
[2024-09-07 17:18] VITALS: BP 128/82; PULSE 69; TEMP 36.3; O2SAT 98
--- NOTE | 2024-09-07 23:10 | W.ED.GENAD ---
Discharge Plan Disposition Patient Disposition: Home Discharge Details Clinical Impression: Contusion of foot, Foreign body of toe Primary Care Provider: Gloria Valdes ED Provider: Minda Gibson Home Meds and New Rx's Prescriptions: Continued omeprazole 20 mg capsule,delayed release(DR/EC) 20 mg PO DAILY Qty: 90 3RF Rx Instructions: Take on an empty stomach at least 30 minutes before first meal. lisinopril 20 mg tablet 20 mg PO DAILY Qty: 90 3RF Rx Instructions: BP & DM Ultra CoQ10 75 mg capsule 75 mg PO DAILY tramadol 50 mg tablet 50 mg PO Q6H PRN (Reason: pain) Qty: 12 0RF Rx Instructions: may take along with NSAIDS/Tylenol multivitamin [Daily Vitamin] 1 EACH tablet 1 ea PO DAILY Qty: 100 lqcubxow-nvuf-vbvwwx-hyalur ac 1 EACH capsule 1 ea PO BID Fish Oil 1 EACH capsule 1 ea PO DAILY (DME) Blood Glucose Test Strip See Rx Instructions .ROUTE .MEDSUPPLY Qty: 400 3RF Rx Instructions: As directed to check blood glucose four times daily. On insulin. Dispense covered brand. (DME) pen needle, diabetic [Pen Needle] 31 gauge x 5/16 needle 1 ea Miscellaneous QID Qty: 400 3RF Rx Instructions: 31G 5/16 Dx: E11.9 To maintain HbA1C less than 7% metformin 1,000 mg tablet See Rx Instructions .ROUTE .COMPLEX Qty: 180 3RF Dose Instruction: TAKE ONE TABLET BY MOUTH TWICE A DAY FOR DIABETES Rx Instructions: TAKE ONE TABLET BY MOUTH TWICE A DAY FOR DIABETES atorvastatin 80 mg tablet See Rx Instructions .ROUTE .COMPLEX Qty: 90 3RF Dose Instruction: TAKE ONE TABLET BY MOUTH EVERY DAY Rx Instructions: TAKE ONE TABLET BY MOUTH EVERY DAY fenofibrate nanocrystallized 145 mg tablet See Rx Instructions .ROUTE .COMPLEX Qty: 90 3RF Dose Instruction: TAKE ONE TABLET BY MOUTH EVERY DAY Rx Instructions: TAKE ONE TABLET BY MOUTH EVERY DAY insulin glargine [Lantus Solostar U-100 Insulin] 100 unit/mL (3 mL) insulin pen See Rx Instructions .ROUTE .COMPLEX Qty: 30 3RF Dose Instruction: INJECT 34 UNITS UNDER THE SKIN AT BEDTIME Rx Instructions: INJECT 34 UNITS UNDER THE SKIN AT BEDTIME insulin aspart U-100 [Novolog FlexPen U-100 Insulin] 100 unit/mL (3 mL) insulin pen See Rx Instructions .ROUTE .COMPLEX Qty: 30 3RF Dose Instruction: INJECT 10-30 UNITS UNDER THE SKIN BEFORE MEALS PER SLIDING SCALE Rx Instructions: INJECT 2-20 UNITS UNDER THE SKIN BEFORE MEALS PER SLIDING SCALE tamsulosin [Flomax] 0.4 mg capsule 0.4 mg PO DAILY Qty: 10 0RF Ozempic 1 mg/dose (4 mg/3 mL) pen injector 1 mg subcut QWEEK Qty: 3 6RF (DME) FreeStyle Shilpa 14 Day Sensor Kit See Rx Instructions .ROUTE .COMPLEX Qty: 2 6RF Dose Instruction: USE DIRECTED TO KEEP HBA1C LESS THAN 7% Rx Instructions: USE DIRECTED TO KEEP HBA1C LESS THAN 7% sildenafil 100 mg tablet See Rx Instructions .ROUTE .COMPLEX Qty: 50 6RF Dose Instruction: TAKE ONE TABLET BY MOUTH 30 MINUTES TO FOUR HOURS PRIOR TO INTERCOURSE; DO NOT USE MORE THAN ONE DOSE DAILY Rx Instructions: TAKE ONE TABLET BY MOUTH 30 MINUTES TO FOUR HOURS PRIOR TO INTERCOURSE; DO NOT USE MORE THAN ONE DOSE DAILY Discharge Instructions Instructions: Minor Contusion ED Additional Instructions: you have a foreign body between your great toe and second toe of indeterminate time of injury, podiatry can remove this if interested Keep wound on foot clean and dry apply bacitracin voltaren gel topically for pain, tylenol, elevation, and ice Referrals: Gloria Valdes NP [Primary Care Provider, Medicine] Ginny James DPM [[facility] STAFF PHYSICIAN, Podiatry] Discharge Data Discharge Date/Time-TO BE ENTERED AT DEPARTURE: 09/07/24 17:23 HPI General Date/Time Provider Initiated Documentation: 09/07/24 16:04. HPI Narrative: 59-year-old male with hypertension, hyperlipidemia, and diabetes, presenting with persistent left foot pain after a windshield fell on it. Tetanus vaccination is up to date. Administered oxycodone in ED for pain, advised Tylenol at home, avoid Motrin due to lisinopril. Discharged home in stable condition with return precautions discussed. Related Data Home Medications ?Medication ?Instructions ?Recorded ?Confirmed glucosamin 375 mg-chond 300 1 ea PO BID 04/19/12 09/07/24 mg-collagen 50 mg-hyaluronic acid 2 mg cap multivitamin (Daily Vitamin tablet) 1 ea PO DAILY ##100 04/19/12 09/07/24 omega-3 fatty acids-fish oil 340 1 ea PO DAILY 02/18/17 09/07/24 mg-1,000 mg capsule (Fish Oil) blood sugar diagnostic (Blood #400 ea 09/10/19 09/07/24 Glucose Test strips) pen needle, diabetic 31 gauge x ##400 09/07/21 09/07/24 5/16 (Pen Needle) omeprazole 20 mg capsule,delayed 20 mg PO DAILY #90 caps 08/29/23 09/07/24 release metformin 1,000 mg tablet See Rx Instructions .Route 11/09/23 09/07/24 .COMPLEX #180 tabs atorvastatin 80 mg tablet See Rx Instructions .Route 12/07/23 09/07/24 .COMPLEX #90 tabs fenofibrate nanocrystallized 145 See Rx Instructions .Route 01/10/24 09/07/24 mg tablet .COMPLEX #90 tabs lisinopril 20 mg tablet 20 mg PO DAILY #90 tabs 02/27/24 09/07/24 insulin glargine 100 unit/mL (3 See Rx Instructions .Route 04/22/24 09/07/24 mL) subcutaneous pen (Lantus .COMPLEX #30 mL Solostar U-100 Insulin) insulin aspart U-100 100 unit/mL See Rx Instructions .Route 05/27/24 09/07/24 (3 mL) subcutaneous pen (Novolog .COMPLEX #30 mL FlexPen U-100 Insulin aspart) tamsulosin 0.4 mg capsule (Flomax) 0.4 mg PO DAILY #10 caps 07/27/24 09/07/24 semaglutide 1 mg/dose (4 mg/3 mL) 1 mg (0.75 mL) subcut QWEEK #3 mL 07/30/24 09/07/24 subcutaneous pen injector (Ozempic) flash glucose sensor (FreeStyle #2 kits 08/20/24 09/07/24 Shilpa 14 Day Sensor kit) sildenafil 100 mg tablet See Rx Instructions .Route 09/02/24 09/07/24 .COMPLEX #50 tabs coenzyme Q10 75 mg capsule (Ultra 75 mg PO DAILY 09/07/24 09/07/24 CoQ10) tramadol 50 mg tablet 50 mg PO Q6H PRN pain #12 tabs 09/07/24 09/07/24 Previous Rx's ?Medication ?Instructions ?Recorded blood sugar diagnostic (Blood #400 ea 09/10/19 Glucose Test strips) pen needle, diabetic 31 gauge x ##400 09/07/2106/29 (Pen Needle) omeprazole 20 mg capsule,delayed 20 mg PO DAILY #90 caps 08/29/23 release metformin 1,000 mg tablet See Rx Instructions .Route 11/09/23 .COMPLEX #180 tabs atorvastatin 80 mg tablet See Rx Instructions .Route 12/07/23 .COMPLEX #90 tabs fenofibrate nanocrystallized 145 See Rx Instructions .Route 01/10/24 mg tablet .COMPLEX #90 tabs lisinopril 20 mg tablet 20 mg PO DAILY #90 tabs 02/27/24 insulin glargine 100 unit/mL (3 See Rx Instructions .Route 04/22/24 mL) subcutaneous pen (Lantus .COMPLEX #30 mL Solostar U-100 Insulin) insulin aspart U-100 100 unit/mL See Rx Instructions .Route 05/27/24 (3 mL) subcutaneous pen (Novolog .COMPLEX #30 mL FlexPen U-100 Insulin aspart) tamsulosin 0.4 mg capsule (Flomax) 0.4 mg PO DAILY #10 caps 07/27/24 semaglutide 1 mg/dose (4 mg/3 mL) 1 mg (0.75 mL) subcut QWEEK #3 mL 07/30/24 subcutaneous pen injector (Ozempic) flash glucose sensor (FreeStyle #2 kits 08/20/24 Shilpa 14 Day Sensor kit) sildenafil 100 mg tablet See Rx Instructions .Route 09/02/24 .COMPLEX #50 tabs tramadol 50 mg tablet 50 mg PO Q6H PRN pain #12 tabs 09/07/24 Allergies Allergy/AdvReac Type Severity Reaction Status Date / Time No Known Allergies Allergy Verified 09/07/24 15:48 General Stated Complaint: Orthopedic [place]: 4 Exam Narrative Exam Narrative: Back, Musculoskeletal: No ankle tenderness. Extremities: Ecchymosis and tenderness to dorsal foot with small abrasion, no laceration. Skin: Warm and dry, no rash. Neurological: Neurovascularly intact. Course Vital Signs Vital signs: Vital Signs Temperature 36.7 C 09/07/24 15:47 Pulse 103 H 09/07/24 15:47 Respiratory Rate 12 09/07/24 15:47 Blood Pressure 145/91 H 09/07/24 15:47 Pulse Oximetry 96 09/07/24 15:47 Temperature 36.3 C L 09/07/24 17:18 Temperature Source Tympanic 09/07/24 17:18 Pulse 69 09/07/24 17:18 Respiratory Rate 12 09/07/24 15:47 Blood Pressure 128/82 09/07/24 17:18 Blood Pressure Mean 97 09/07/24 17:18 Blood Pressure Position Sitting 09/07/24 15:47 Pulse Oximetry 98 09/07/24 17:18 Oxygen Delivery Method Room Air 09/07/24 17:18 Oxygen Flow Rate 0 09/07/24 17:18 Pain Level 5 09/07/24 17:18 Medical Decision Making Foot X-ray: no acute abnormality, foreign body in webspace between great toe and second toe. Per radiology interpretation of my review Initial Assessment: 59-year-old male with persistent left foot pain after trauma. X-ray: no acute abnormality, foreign body in webspace. ED Course: - Pain managed with oxycodone in ED - Encouraged to take Tylenol at home and refrain from Motrin use secondary to lisinopril - Return precautions discussed in detail - Discharged home in stable condition with stable vitals Final Assessment: Persistent left foot pain managed with oxycodone in ED. X-ray showed no acute abnormality but a foreign body in webspace. Patient discharged home in stable condition with return precautions. Clinical Impression: - Persistent left foot pain - Foreign body in webspace Disposition: - Discharge: Patient discharged home in stable condition - Follow-Up: Follow-up with podiatry for potential foreign body removal MDM Components Evaluation: - Number of Differential Diagnoses or Management Options: Persistent left foot pain, foreign body in webspace - Amount and Complexity of Data Reviewed: X-ray reviewed, urine drug screen positive for THC - Risk of Complication and Morbidity or Mortality: Low risk due to stable condition and clear discharge instructions PFSH All Active Problems (Updated 09/07/24 @ 17:03 by DEANNA Correa) Foreign body of toe (Acute) Contusion of foot (Acute) Kidney stones (Chronic) Sleep apnea (Acute 09/01/12) intolerant CPAP; has lost weight since dx Other and unspecified hyperlipidemia (Acute 04/19/12) Baseline 04/2005: TG 1175 ; PCEq risk 19% LDL baseline 161; high intensity statin & fibrate therapy 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 (Acute) Essential hypertension (Chronic 02/21/13) Gastroesophageal reflux disease (Chronic 04/19/12) Type 2 diabetes mellitus, with long-term current use of insulin (Acute ~1998) HbA1c goal </= 7-7.5%; dx'ed 24yo Benign neoplasm of colon, unspecified (Acute 02/24/11) tubular adenoma Lesion of lumbar spine (Acute) Non-pressure chronic ulcer of left ankle with fat layer exposed (Acute) Family history of colon cancer in mother (Chronic) Multiple thyroid nodules (Acute) ENT Erectile dysfunction (Acute) History of colon polyps (Acute) Chronic rhinitis (Chronic 09/01/12) Medical History (Updated 09/07/24 @ 17:03 by DEANNA Correa) Ureterolithiasis Hydronephrosis of left kidney Diverticulosis Fracture of pelvis (03/30/13) Surgical History (Updated 09/07/24 @ 08:08 by Tao Sesay MD) History of ureteroscopic laser fragmentation of ureteral calculus Hx of cystoscopy H/O colonoscopy 08/21/20 with polypectomy Repair, Tendon or Muscle L ankle Family History Mother Colon cancer Father Essential hypertension Hyperlipidemia Brother Hyperlipidemia Multiple sclerosis Social History Smoking/Tobacco Use Status: Current-Occasional Tobacco Type: cigarettes Smoking packs per day: 1 Smoking cigarettes per day: 20.0 Second Hand Exposure: Yes Smoking risk assessment performed?: Yes Alcohol Intake: current Alcohol Intake frequency: a few times a month Drug use: Daily Substance use type: marijuana 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[employer]) Pets and animals: Yes Pets and animals: dog(s) Sexually active: Yes Current gender identity: male What is your relationship status?: Panel score (0-1 are the most socially isolated patients): 1 What type of physical activity do you participate in: none and other Details: Stays active with work, hunting, fishing, etc Duration: < 15 minutes/day Frequency: does not exercise Seatbelt use: never Drive intox or ride w/intox service car driver: No Water heater temp set <120 deg: Yes Working smoke detector in home: Yes Fire extinguisher in home: Yes Carbon monox detector in home: Yes Do you feel safe at home: Yes Do you feel safe in your relationship?: Yes Additional Social history: [employer]
== END 2024-09-07 17:23 | disposition home or self-care (01) ==
PROVIDERS: Emergency Provider Physician Assistant; PCP Nurse Practitioner Adult Health
DX: S90.32XA Contusion of left foot, initial encounter (principal); S90.455A Superficial foreign body, left lesser toe(s), initial encounter; W20.8XXA Other cause of strike by thrown, projected or falling object, initial encounter
CPT/HCPCS: 99283 ×2; 73630